=== PATIENT | male | born 1935 | race Caucasian/White ===

== ENCOUNTER 2020-03-21 07:45 | Emergency (ER) | payer MEDICARE, SELFPAY ==
[2020-03-21 07:59] VITALS: BP 129/45; PULSE 71; RESP 16; TEMP 36.5; O2SAT 100; BMI 19.1
--- NOTE | 2020-03-21 08:02 | ED.MALEGU ---
HPI - Male Genitourinary General Chief complaint: Urogenital-Male Stated complaint: urinary issue Time Seen by Provider: 03/21/20 08:00 Source: patient Mode of arrival: ambulatory Limitations: no limitations History of Present Illness HPI Narrative: recently seen here for UTI and mild retention on 03/16 did well with antibiotics since stopping yesterday he notes he started having burning with urination, given prior cultures sent out on levofloxacin, no associated symptoms, of note his culture grew out enterococcus S to ampicillin and macrobid Complaint: dysuria Onset (ago): day(s) (1) Duration: intermittent Severity: mild Quality: burning Relieving factors: none Exacerbating factors: urination Associated symptoms: Reports denies other symptoms Related Data Previous Rx's Medication Instructions Recorded amoxicillin 500 mg PO BID 10 Days #20 cap 03/21/20 Allergies Allergy/AdvReac Type Severity Reaction Status Date / Time No Known Allergies Allergy Unknown NONE Unverified 03/05/20 15:48 Review of Systems Review of Systems: Constitutional : No Weight loss, No Fever, No Chills ENT/Mouth : No sore throat, No Rhinorrhea Eyes: No Swelling, No Redness Cardiovascular : No Chest Pain, No SOB, NoEdema Respiratory : No Cough, No Sputum, No Wheezing Gastrointestinal : no Nausea, no Vomiting, no abdominal pain Genitourinary : + Dysuria, +Urinary Frequency, Musculoskeletal : No joint pain, No Myalgias, No Joint Swelling Skin : No Skin Lesions, No rash Neuro : No Weakness, No Numbness, No Dizziness, No Headache Psych : No Anxiety/Panic, No Depression Heme/Lymph: No Bruising, No Lymphadenopathy Endocrine : No Polyuria, No Polydipsia All other systems reviewed and are negative. [facility] Past Medical History Medical History (Updated 03/21/20 @ 10:22 by Chanel Bess DO) Atrial fibrillation (Unknown) BPH (benign prostatic hyperplasia) (Unknown) CHF (congestive heart failure) (Unknown) COPD (chronic obstructive pulmonary disease) (Unknown) Diabetes (Unknown) Esophageal cancer (Unknown) HTN (hypertension) (Unknown) UTI (urinary tract infection) (Unknown) Surgical History AICD (automatic cardioverter/defibrillator) present (Unknown) Family History Family History (Updated 10/03/20 @ 09:51 by MIGNON Deleon) Father No problems noted. Mother No problems noted. Social History Social History (Updated 03/21/20 @ 08:02 by Chanel Bess DO) Alcohol intake: never Smoking Status: Former smoker Smoked in Last 30 Days: No Use of substances other than those prescribed or required for medical reasons: No Advance Directives: No Advance Directives Information Provided: No Physical Exam Vital Signs and I&O and Narrative: Vital Signs and I&O: Vital Signs Temp 97.7 F 03/21/20 08:28 Pulse 71 03/21/20 08:28 Resp 16 03/21/20 08:28 BP 129/45 L 03/21/20 07:59 Pulse Ox 100 03/21/20 08:28 Intake & Output 03/20/20 03/21/20 03/21/20 18:59 06:59 18:59 Weight 63.796 kg Body Mass Index 19.1 Appearance: Alert. Oriented X3. No acute distress. Eyes: Pupils equal, round and reactive to light. ENT: Pharynx normal. Neck: Normal inspection. Neck supple. CVS: irregular heart rate and rhythm. Pulses normal. Respiratory: No respiratory distress. Breath sounds normal. Abdomen: Soft and mild suprapubic ttp Skin: Skin warm and dry. Normal skin color. Normal skin turgor. Extremities: No lower extremity edema. No lower extremity edema. Neuro: Oriented X 3. No motor deficit. No sensory deficit. Course Reevaluation(s) Reevaluation #1: labs at baseline though INR low 1.2, will obtain cultures/lactic acid and start on zosyn given prior cultures Reevaluation #2: not toxic, stable for DC, has no signs of sepsis, feels safe to DC MDM - Male Genitourinary MDM Narrative Medical decision making narrative: recent UTI Rx levofloxacin which his culture grew enterococcus - R to quinolones, S to ampicillin and macrobid, he has no signs of sepsis, no CVA ttp, no vomiting, will obtain repeat UA, labs, bladder scan likely dose ampicillin and DC home on amoxicillin Lab Data Result diagrams: 03/21/20 08:35 03/21/20 08:35 Labs: Lab Results 03/21/20 03/21/20 03/21/20 Range/Units 08:35 08:35 08:35 WBC 2.7 L (4.8-10.8) X10*3/uL RBC 2.99 L (4.60-5.80) X10*6/uL Hgb 9.9 L (14.0-18.0) g/dl Hct 31.4 L (42-52) % MCV 105.0 H (80-98) fL MCH 33.1 H (27.0-33.0) pg MCHC 31.5 (31.0-36.0) g/dl RDW 13.3 (11.0-16.0) % Plt Count 102 L (160-400) X10*3/uL MPV 9.7 (9.4-12.4) fL Immature Gran % (Auto) 0.4 (0.0-0.4) % Neut % (Auto) 73.8 H (45-73) % Lymph % (Auto) 12.7 L (20-40) % [place] % (Auto) 9.4 (2-11) % Eos % (Auto) 2.6 (0-4) % Baso % (Auto) 1.1 (0-2) % Neut # (Auto) 2.0 (2.0-8.3) X10*3/uL Lymph # (Auto) 0.3 L (1.2-4.9) X10*3/uL [place] # (Auto) 0.3 (0.1-1.2) X10*3/uL Eos # (Auto) 0.1 (0.0-0.4) X10*3/uL Baso # (Auto) 0.0 (0.0-0.2) X10*3/uL Abs Immat Gran (auto) 0.01 (0.00-0.03) X10*3/uL Absolute Nucleated RBC 0.000 (0.0-0.012) X10*3/uL Nucleated RBC % (auto) 0.0 (0.0-0.2) /100WBC Smear Tech's Comments VERIFIED PT 14.0 H (10.8-13.0) SEC INR 1.2 H (0.9-1.1) APTT 35.9 (24.1-38.0) SEC Sodium (135-145) mmol/L Potassium (3.3-5.1) mmol/l Chloride (96-108) mmol/L Carbon Dioxide (22-29) mmol/L Anion Gap (12-20) BUN (9-16) mg/dL Creatinine (0.5-1.4) mg/dL Estim Creat Clear Calc Estimated GFR Random Glucose (60-115) mg/dL Calcium (8.4-10.2) mg/dL Magnesium (1.6-2.6) mg/dL Total Bilirubin (0.0-1.0) mg/dL Direct Bilirubin (0.0-0.5) mg/dL AST (5-37) U/L ALT (0-40) U/L Alkaline Phosphatase (39-117) U/L Total Protein (6.5-8.0) g/dL Albumin (3.5-5.0) g/dL Urine Color YELLOW Urine Appearance CLOUDY Urine pH 6.0 (5.0-8.0) Ur Specific [place] 1.025 (1.005-1.025) Urine Protein 2+ H (NEG-TRACE) MG/DL Urine Glucose (UA) NEG (NEG) MG/DL Urine Ketones 5 (NEG) MG/DL Urine Blood 2+ H (NEG) Urine Nitrite NEG (NEG) Ur Leukocyte Esterase 3+ H (NEG) Urine RBC 5-9 H (0) /HPF Urine WBC TNTC H (0-4) /HPF Ur Squamous Epith Cells TRACE /LPF Ur Renal Epithelial Cell TRACE /LPF Urine Bacteria NONE /LPF Urine Mucus 1+ /LPF 03/21/20 Range/Units 08:35 WBC (4.8-10.8) X10*3/uL RBC (4.60-5.80) X10*6/uL Hgb (14.0-18.0) g/dl Hct (42-52) % MCV (80-98) fL MCH (27.0-33.0) pg MCHC (31.0-36.0) g/dl RDW (11.0-16.0) % Plt Count (160-400) X10*3/uL MPV (9.4-12.4) fL Immature Gran % (Auto) (0.0-0.4) % Neut % (Auto) (45-73) % Lymph % (Auto) (20-40) % [place] % (Auto) (2-11) % Eos % (Auto) (0-4) % Baso % (Auto) (0-2) % Neut # (Auto) (2.0-8.3) X10*3/uL Lymph # (Auto) (1.2-4.9) X10*3/uL [place] # (Auto) (0.1-1.2) X10*3/uL Eos # (Auto) (0.0-0.4) X10*3/uL Baso # (Auto) (0.0-0.2) X10*3/uL Abs Immat Gran (auto) (0.00-0.03) X10*3/uL Absolute Nucleated RBC (0.0-0.012) X10*3/uL Nucleated RBC % (auto) (0.0-0.2) /100WBC Smear Tech's Comments PT (10.8-13.0) SEC INR (0.9-1.1) APTT (24.1-38.0) SEC Sodium 141 (135-145) mmol/L Potassium 3.6 (3.3-5.1) mmol/l Chloride 109 H (96-108) mmol/L Carbon Dioxide 26 (22-29) mmol/L Anion Gap 10 L (12-20) BUN 25 H (9-16) mg/dL Creatinine 1.44 H (0.5-1.4) mg/dL Estim Creat Clear Calc 35.0 Estimated GFR 47 Random Glucose 121 H (60-115) mg/dL Calcium 8.4 (8.4-10.2) mg/dL Magnesium 2.0 (1.6-2.6) mg/dL Total Bilirubin 0.9 (0.0-1.0) mg/dL Direct Bilirubin 0.5 (0.0-0.5) mg/dL AST 13 (5-37) U/L ALT 11 (0-40) U/L Alkaline Phosphatase 89 (39-117) U/L Total Protein 5.5 L (6.5-8.0) g/dL Albumin 3.6 (3.5-5.0) g/dL Urine Color Urine Appearance Urine pH (5.0-8.0) Ur Specific [place] (1.005-1.025) Urine Protein (NEG-TRACE) MG/DL Urine Glucose (UA) (NEG) MG/DL Urine Ketones (NEG) MG/DL Urine Blood (NEG) Urine Nitrite (NEG) Ur Leukocyte Esterase (NEG) Urine RBC (0) /HPF Urine WBC (0-4) /HPF Ur Squamous Epith Cells /LPF Ur Renal Epithelial Cell /LPF Urine Bacteria /LPF Urine Mucus /LPF Discharge Plan Discharge Clinical Impression: Urinary tract infection Patient Disposition: Home, Self-Care Instructions: Urinary Tract Infection in Men (ED) Prescriptions: New amoxicillin 500 mg capsule 500 mg PO BID 10 Days Qty: 20 RF: 0 Referrals: Sam Ruffin MD [Primary Care Provider] - 2 days (follow up Monday)
--- NOTE | 2020-03-21 08:13 | PC.NURSE ---
PT HERE FOR CONTINUED PAIN IN LOW ABD, HERE MONDAY AND DX AND DC W ABX FOR UTI. PT FINISHED SCRIPT, BUT STILL FEELING PAIN. PLAN FOR BLADDER SCAN, REPEAT UA, AND BASIC LABS. PT A&OX4, SPEAKING IN FULL CLEAR SENTENCES, RR EVEN/UNLABORED, SKIN WPD.
[2020-03-21 08:28] VITALS: PULSE 71; RESP 16; TEMP 36.5; O2SAT 100
[2020-03-21 08:46] LABS: Basophils Percent Auto 1.1 % (0-2); Eosinophils Absolute Auto 0.1 X10*3/uL (0.0-0.4); Eosinophils Percent Auto 2.6 % (0-4); Hematocrit 31.4 % (42-52); Hemoglobin 9.9 g/dl (14.0-18.0); Imm Gran Abs Auto 0.01 X10*3/uL (0.00-0.03); Imm Gran Pct Auto 0.4 % (0.0-0.4); Lymphocytes Absolute Auto 0.3 X10*3/uL (1.2-4.9); Lymphocytes Percent Auto 12.7 % (20-40); MANUAL DIFF FLAG SCAN; Mean Corpuscular HGB Conc 31.5 g/dl (31.0-36.0); Mean Corpuscular Hemoglobin 33.1 pg (27.0-33.0); Mean Platelet Volume 9.7 fL (9.4-12.4); Monocytes Absolute Auto 0.3 X10*3/uL (0.1-1.2); Monocytes Percent Auto 9.4 % (2-11); Neutrophils Percent Auto 73.8 % (45-73); Red Blood Count 2.99 X10*6/uL (4.60-5.80); Red Cell Distribution Width 13.3 % (11.0-16.0); SCAN SMEAR FLAG 1; White Blood Count 2.7 X10*3/uL (4.8-10.8)
[2020-03-21 08:50] LABS: Glucose Urine UA NEG (NEG); Leukocyte Esterase Urine 3+ (NEG); Nitrite Urine NEG (NEG); Specific Gravity - Urine 1.025 (1.005-1.025); Urine Blood 2+ (NEG); Urine Ketones 5 MG/DL (NEG); Urine Protein 2+ MG/DL (NEG-TRACE)
[2020-03-21 08:51] LABS: Appearance Urine CLOUDY; Color Urine YELLOW
[2020-03-21 08:52] LABS: INTERNATIONAL NORM RATIO 1.2 (0.9-1.1)
[2020-03-21 08:55] LABS: Partial Thromboplastin Time 35.9 SEC (24.1-38.0)
[2020-03-21 09:01] LABS: Mucus Urine 1+ /LPF; Renal Epithelial Cells Urine TRACE /LPF; Squamous Epithelial Cell Urine TRACE /LPF; WBC Urine TNTC /HPF (0-4)
[2020-03-21 09:10] LABS: Platelet Count 102 X10*3/uL (160-400); SLIDE REVIEW VERIFIED
[2020-03-21 09:25] LABS: Alanine Aminotransferase 11 U/L (0-40); Albumin Level 3.6 g/dL (3.5-5.0); Alkaline Phosphatase 89 U/L (39-117); Anion Gap 10 (12-20); Aspartate Amino Transferase 13 U/L (5-37); Bilirubin Direct 0.5 mg/dL (0.0-0.5); Bilirubin Total 0.9 mg/dL (0.0-1.0); Blood Urea Nitrogen 25 mg/dL (9-16); Calcium 8.4 mg/dL (8.4-10.2); Carbon Dioxide 26 mmol/L (22-29); Chloride 109 mmol/L (96-108); Estimated Glomerular Filt Rate 47; Glucose Random 121 mg/dL (60-115); Potassium 3.6 mmol/l (3.3-5.1); Sodium 141 mmol/L (135-145); Total Protein 5.5 g/dL (6.5-8.0)
[2020-03-21] MEDS: Piperacillin Sodium/Tazobactam 3.375 GM in 0.9 % Sodium Chloride 50 ML IV (10:14)
== END 2020-03-21 12:15 | disposition home or self-care (01) ==
PROVIDERS: Emergency Provider Emergency Medicine; PCP Internal Medicine
DX: N39.0 Urinary tract infection, site not specified (principal); E11.9 Type 2 diabetes mellitus without complications; I11.0 Hypertensive heart disease with heart failure; I50.9 Heart failure, unspecified; I48.91 Unspecified atrial fibrillation; Z95.5 Presence of coronary angioplasty implant and graft; Z87.440 Personal history of urinary (tract) infections
CPT/HCPCS: 36415; 51798; 80048; 80076; 81001; 83735; 85025; 85610; 85730; 87086; 87088; 87186; 96365; 99284; J2543

== ENCOUNTER → 2020-03-23 09:12 | Outpatient (BNVA) | payer MEDICARE, SELFPAY | PROVIDERS: PCP Internal Medicine; Visit Provider Urology | DX: R30.0 Dysuria (principal); N40.1 Benign prostatic hyperplasia with lower urinary tract symptoms; N13.8 Other obstructive and reflux uropathy; R39.15 Urgency of urination | CPT/HCPCS: 81003; 99214 ==

== ENCOUNTER 2020-04-01 14:08 | Inpatient (IN) | payer MEDICARE, SELFPAY ==
[2020-04-01 16:38] VITALS: BP 109/30; PULSE 70; RESP 18; TEMP 37.1; O2SAT 98; BMI 19.0
--- NOTE | 2020-04-01 16:42 | XR_ITS ---
EXAMINATION: XR CHEST CLINICAL INFORMATION: Fluid overload COMPARISON: Chest x-ray 02/12/2020 TECHNIQUE: Frontal portable view of the chest was obtained. 4:50 PM FINDINGS: Pacemaker leads present in the right ventricle and coronary sinus. Heart size is normal. Cardiac and mediastinal contours are normal. There are calcifications of aorta. No pulmonary vascular congestion. The lungs are clear. No pleural effusion or pneumothorax. IMPRESSION: No acute abnormality of the chest.
--- NOTE | 2020-04-01 16:51 | ECG_ITS ---
Test Reason : ABNORMAL LABS Blood Pressure : / mmHG Vent. Rate : 070 BPM Atrial Rate : 267 BPM P-R Int : 000 ms QRS Dur : 120 ms QT Int : 404 ms P-R-T Axes : 000 188 030 degrees QTc Int : 436 ms Electronic ventricular pacemaker Low voltage QRS Abnormal ECG When compared with ECG of 12-FEB-2020 10:24, Premature ventricular complexes is no longer Present Referred By: Joe Cassidy Electronically Signed By:LURDSE NAQVI MD
--- NOTE | 2020-04-01 17:10 | ED.RECABL ---
HPI - Recheck/Abnormal Lab/Rx General Chief Complaint: Recheck/Abnormal Lab/Rx Stated Complaint: kidney problems Time Seen by Provider: 04/01/20 16:37 Source: patient Mode of arrival: ambulatory Limitations: no limitations History of Present Illness HPI narrative: patient was sent by his primary care doctor to the ER for worsening of creatinine level patient had a COVID infection earlier his usual creatinine is 1.2-1.4 in February this year and today patient had labs done which which showed creatinine of 5.1 also digoxin level was elevated to 2.6 patient is feeling slightly weak denied any shortness of breath has decreased urine output with history of benign prostate hypertrophy patient does have a history of stage III CKD sick sinus syndrome diabetes mellitus congestive heart failure atrial fibrillation B12 deficiency COVID infection in 01/05 COPD bronchiectasis pulmonary fibrosis dilated cardiomyopathy history of esophageal cancer states surface post partial esophagectomy osteoarthritis gout and has a pacemaker Related Data Home Medications Medication Instructions Recorded Confirmed cyanocobalamin (vitamin B-12) 1,000 mcg IM QMONTH 04/01/20 04/01/20 digoxin 125 mcg PO DAILY 04/01/20 04/01/20 ipratropium-albuterol [DuoNeb] 3 ml INHALATION QID PRN 04/01/20 04/01/20 metoprolol succinate 300 mg PO DAILY 04/01/20 04/01/20 omeprazole 20 mg PO BID 04/01/20 04/01/20 oxybutynin chloride 1 tab PO DAILY 04/01/20 04/01/20 sacubitril-valsartan [Entresto] 1 tab PO BID 04/01/20 04/01/20 tamsulosin 0.4 mg PO DAILY 04/01/20 04/01/20 umeclidinium-vilanterol [Anoro 1 puff PO DAILY 04/01/20 04/01/20 Ellipta] warfarin [Jantoven] 5 mg PO MOTUTHFRSA 04/01/20 04/01/20 warfarin [Jantoven] 7.5 mg PO SUWE 04/01/20 04/01/20 Allergies Allergy/AdvReac Type Severity Reaction Status Date / Time No Known Allergies Allergy Unknown NONE Unverified 03/05/20 15:48 Review of Systems Review of Systems: REVIEW OF SYSTEMS: Pertinent positives and negatives are stated above in the history. GEN: no fevers, chills, fatigue HEENT: no nasal congestion, sore throat, ear pain NEURO: no headache, dizziness, focal weakness PULM: no cough, shortness of breath CV: no chest pain, palpitations, LE edema ABD: no abdominal pain, nausea, vomiting, diarrhea : no dysuria, urgency, frequency SKIN: no rash ROS otherwise negative x 10 [facility] Past Medical History Medical History (Updated 04/01/20 @ 21:01 by Joe Cassidy MD) Atrial fibrillation (Unknown) BPH (benign prostatic hyperplasia) (Unknown) CHF (congestive heart failure) (Unknown) COPD (chronic obstructive pulmonary disease) (Unknown) Diabetes (Unknown) Esophageal cancer (Unknown) HTN (hypertension) (Unknown) UTI (urinary tract infection) (Unknown) Surgical History (Updated 04/01/20 @ 17:25 by Joe Cassidy MD) AICD (automatic cardioverter/defibrillator) present (Unknown) History of esophagectomy Family History Family History Father No problems noted. Mother No problems noted. Social History Social History Alcohol intake: never Smoking Status: Former smoker Advance Directives: No Advance Directives Information Provided: Yes Physical Exam Vital Signs: Vital Signs: Vital Signs Temp Pulse Resp BP Pulse Ox 04/01/20 20:56 98.7 F 71 16 124/70 97 04/01/20 18:43 70 120/34 L 95 04/01/20 16:38 98.8 F 70 18 109/30 L 98 Body Mass Index 19.0 Appearance: Alert. Oriented X3. No acute distress. Eyes: Pupils equal, round and reactive to light. ENT: Pharynx normal. Neck: Normal inspection. Neck supple. CVS: Normal heart rate and rhythm. Pulses normal. Respiratory: No respiratory distress. Breath sounds normal. Abdomen: Soft and nontender. suprapubic fullness present Skin: Skin warm and dry. Normal skin color. Normal skin turgor. Extremities: No lower extremity edema. Good range of movement Neuro: Oriented X 3. No motor deficit. No sensory deficit. Course Course Course Narrative: patient with obstructive uropathy secondary to enlarged prostate Navarro catheter was placed drain 1800 cc of urine. Will admit patient for further evaluation by urologist monitor her creatinine. 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 Patient has elevated lactic acid secondary to renal failure note from sepsis MDM - Recheck/Abnormal Lab/Rx Lab Data Result diagrams: 04/01/20 17:13 04/01/20 17:13 Labs: Lab Results 04/01/20 04/01/20 04/01/20 Range/Units 17:13 17:13 17:13 WBC 9.3 (4.8-10.8) X10*3/uL RBC 3.17 L (4.60-5.80) X10*6/uL Hgb 10.4 L (14.0-18.0) g/dl Hct 33.0 L (42-52) % MCV 104.1 H (80-98) fL MCH 32.8 (27.0-33.0) pg MCHC 31.5 (31.0-36.0) g/dl RDW 13.0 (11.0-16.0) % Plt Count 171 D (160-400) X10*3/uL MPV 9.7 (9.4-12.4) fL Immature Gran % (Auto) 0.4 (0.0-0.4) % Neut % (Auto) 89.2 H (45-73) % Lymph % (Auto) 3.5 L (20-40) % [place] % (Auto) 6.0 (2-11) % Eos % (Auto) 0.6 (0-4) % Baso % (Auto) 0.3 (0-2) % Lymph # (Auto) 0.3 L (1.2-4.9) X10*3/uL [place] # (Auto) 0.6 (0.1-1.2) X10*3/uL Eos # (Auto) 0.1 (0.0-0.4) X10*3/uL Baso # (Auto) 0.0 (0.0-0.2) X10*3/uL Abs Immat Gran (auto) 0.04 H (0.00-0.03) X10*3/uL Absolute Neuts (auto) 8.3 (2.0-8.3) X10*3/uL Absolute Nucleated RBC 0.000 (0.0-0.012) X10*3/uL Nucleated RBC % (auto) 0.0 (0.0-0.2) /100WBC Smear Tech's Comments VERIFIED PT 43.7 H D (10.8-13.0) SEC INR 3.6 H (0.9-1.1) APTT 52.4 H D (24.1-38.0) SEC Sodium (135-145) mmol/L Potassium (3.3-5.1) mmol/l Chloride (96-108) mmol/L Carbon Dioxide (22-29) mmol/L Anion Gap (12-20) BUN (9-16) mg/dL Creatinine (0.5-1.4) mg/dL Estim Creat Clear Calc Estimated GFR Random Glucose (60-115) mg/dL Lactic Acid (0.5-2.0) mmol/L Calcium (8.4-10.2) mg/dL Total Bilirubin (0.0-1.0) mg/dL Direct Bilirubin (0.0-0.5) mg/dL AST (5-37) U/L ALT (0-40) U/L Alkaline Phosphatase (39-117) U/L Total Protein (6.5-8.0) g/dL Albumin (3.5-5.0) g/dL Urine Color Urine Appearance Urine pH (5.0-8.0) Ur Specific [place] (1.005-1.025) Urine Protein (NEG-TRACE) MG/DL Urine Glucose (UA) (NEG) MG/DL Urine Ketones (NEG) MG/DL Urine Blood (NEG) Urine Nitrite (NEG) Ur Leukocyte Esterase (NEG) Urine RBC (0) /HPF Urine WBC (0-4) /HPF Ur Squamous Epith Cells /LPF Urine Bacteria /LPF Digoxin 1.7 (0.8-2.0) ng/mL 04/01/20 04/01/20 04/01/20 Range/Units 17:13 17:13 19:54 WBC (4.8-10.8) X10*3/uL RBC (4.60-5.80) X10*6/uL Hgb (14.0-18.0) g/dl Hct (42-52) % MCV (80-98) fL MCH (27.0-33.0) pg MCHC (31.0-36.0) g/dl RDW (11.0-16.0) % Plt Count (160-400) X10*3/uL MPV (9.4-12.4) fL Immature Gran % (Auto) (0.0-0.4) % Neut % (Auto) (45-73) % Lymph % (Auto) (20-40) % [place] % (Auto) (2-11) % Eos % (Auto) (0-4) % Baso % (Auto) (0-2) % Lymph # (Auto) (1.2-4.9) X10*3/uL [place] # (Auto) (0.1-1.2) X10*3/uL Eos # (Auto) (0.0-0.4) X10*3/uL Baso # (Auto) (0.0-0.2) X10*3/uL Abs Immat Gran (auto) (0.00-0.03) X10*3/uL Absolute Neuts (auto) (2.0-8.3) X10*3/uL Absolute Nucleated RBC (0.0-0.012) X10*3/uL Nucleated RBC % (auto) (0.0-0.2) /100WBC Smear Tech's Comments PT (10.8-13.0) SEC INR (0.9-1.1) APTT (24.1-38.0) SEC Sodium 140 (135-145) mmol/L Potassium 4.2 (3.3-5.1) mmol/l Chloride 107 (96-108) mmol/L Carbon Dioxide 23 (22-29) mmol/L Anion Gap 14 (12-20) BUN 77 H D (9-16) mg/dL Creatinine 4.73 H* (0.5-1.4) mg/dL Estim Creat Clear Calc 10.6 Estimated GFR 12 Random Glucose 124 H (60-115) mg/dL Lactic Acid 2.4 H* (0.5-2.0) mmol/L Calcium 7.7 L (8.4-10.2) mg/dL Total Bilirubin 0.7 (0.0-1.0) mg/dL Direct Bilirubin 0.4 (0.0-0.5) mg/dL AST 11 (5-37) U/L ALT 6 (0-40) U/L Alkaline Phosphatase 84 (39-117) U/L Total Protein 5.4 L (6.5-8.0) g/dL Albumin 3.2 L (3.5-5.0) g/dL Urine Color BROWN Urine Appearance TURBID Urine pH 5.5 (5.0-8.0) Ur Specific [place] 1.020 (1.005-1.025) Urine Protein 2+ H (NEG-TRACE) MG/DL Urine Glucose (UA) 100 H (NEG) MG/DL Urine Ketones NEG (NEG) MG/DL Urine Blood 1+ H (NEG) Urine Nitrite POS H (NEG) Ur Leukocyte Esterase 2+ H (NEG) Urine RBC 10-14 H (0) /HPF Urine WBC 76-150 H (0-4) /HPF Ur Squamous Epith Cells 1+ /LPF Urine Bacteria 2+ /LPF Digoxin (0.8-2.0) ng/mL Discharge Plan Discharge Clinical Impression: BPH with obstruction/lower urinary tract symptoms, Bacterial UTI Acute renal failure (ARF) Qualifiers: Acute renal failure type: unspecified Qualified Code(s): N17.9 - Acute kidney failure, unspecified Patient Disposition: Admitted As Inpatient Interventions: Admission Worksheet (ED) Last Done: 04/02/20 00:25 Discharge Date/Time: 04/02/20 00:25
--- NOTE | 2020-04-01 17:14 | PC.NURSE ---
SEEN BY DR MAGDALENO. CXR DONE. LABS DONE. EKG DONE
--- NOTE | 2020-04-01 17:21 | CT_ITS ---
EXAMINATION: CT ABDOMEN AND PELVIS WITHOUT CONTRAST CLINICAL INFORMATION: 85-year-old male with obstructive uropathy. COMPARISON: CT abdomen pelvis 08/15/2019 TECHNIQUE: Multidetector volumetric imaging was performed from the superior aspect of the liver through the pubic symphysis. Sagittal and coronal reformatted images were obtained on the technologist's workstation. This CT examination was performed using dose optimization techniques as appropriate, variously including the following: *Automated exposure control *Adjustment of mA and/or kV according to patient size (this includes techniques or standardized protocols for targeted exams where dose is matched to indication/reason for exam; i.e. extremities or head) *Use of iterative reconstruction technique DLP: 398 mGy-cm FINDINGS: Visualized lung bases again demonstrate a tiny left-sided pleural effusion overlying atelectasis. There is been interval resolution of previously visualized tiny right-sided pleural effusion. The liver demonstrates normal size, contour and attenuation. Stable hepatic hypodensities, some of which demonstrate cystic characteristics and others are too small to accurately characterize. The gallbladder is normal in appearance. The pancreas, spleen and adrenal glands are unremarkable. Interval development of moderate left and severe right-sided hydroureteronephrosis. No obstructing calculi are present. The bladder is overly distended with suggestion of a small left-sided bladder diverticulum. The prostate gland is enlarged measuring 6.5 cm in transverse dimension. There are coarse calcifications centrally within the prostate gland. Small hiatal hernia. The stomach is decompressed. Normal caliber loops of small and large bowel. Moderate colonic diverticulosis without CT evidence to suggest active diverticulitis. Normal appendix. Mild soft tissue stranding within the perirectal fat suggesting possible colitis. Diffuse osteopenia with moderate degenerative changes of the spine. Severe atherosclerotic disease of a nonaneurysmal abdominal aorta. IMPRESSION: Interval development of moderate left and severe right-sided hydroureteronephrosis in this setting of an overly distended bladder and enlarged prostate gland. No obstructing calculi noted.
[2020-04-01 17:34] LABS: Glucose Urine UA 100 MG/DL (NEG); Leukocyte Esterase Urine 2+ (NEG); Nitrite Urine POS (NEG); PH 5.5 (5.0-8.0); Urine Blood 1+ (NEG); Urine Ketones NEG (NEG); Urine Protein 2+ MG/DL (NEG-TRACE)
[2020-04-01 17:35] LABS: Appearance Urine TURBID; Color Urine BROWN
[2020-04-01 17:39] LABS: Bacteria Urine 2+ /LPF; Squamous Epithelial Cell Urine 1+ /LPF
[2020-04-01 18:11] LABS: Basophils Percent Auto 0.3 % (0-2); Eosinophils Absolute Auto 0.1 X10*3/uL (0.0-0.4); Eosinophils Percent Auto 0.6 % (0-4); Hemoglobin 10.4 g/dl (14.0-18.0); Imm Gran Abs Auto 0.04 X10*3/uL (0.00-0.03); Imm Gran Pct Auto 0.4 % (0.0-0.4); Lymphocytes Absolute Auto 0.3 X10*3/uL (1.2-4.9); Lymphocytes Percent Auto 3.5 % (20-40); MANUAL DIFF FLAG SCAN; Mean Corpuscular HGB Conc 31.5 g/dl (31.0-36.0); Mean Corpuscular Hemoglobin 32.8 pg (27.0-33.0); Mean Corpuscular Volume 104.1 fL (80-98); Mean Platelet Volume 9.7 fL (9.4-12.4); Monocytes Absolute Auto 0.6 X10*3/uL (0.1-1.2); Neutrophils Absolute Auto 8.3 X10*3/uL (2.0-8.3); Neutrophils Percent Auto 89.2 % (45-73); Platelet Count 171 X10*3/uL (160-400); Red Blood Count 3.17 X10*6/uL (4.60-5.80); SCAN SMEAR FLAG 1; White Blood Count 9.3 X10*3/uL (4.8-10.8)
[2020-04-01 18:12] LABS: INTERNATIONAL NORM RATIO 3.6 (0.9-1.1); Prothrombin Time 43.7 SEC (10.8-13.0)
[2020-04-01 18:15] LABS: Partial Thromboplastin Time 52.4 SEC (24.1-38.0)
[2020-04-01 18:34] LABS: SLIDE REVIEW VERIFIED
[2020-04-01] MEDS: 0.9 % Sodium Chloride 1,000 ML 999 ML IVCONT (18:42)
[2020-04-01 18:43] VITALS: BP 120/34; PULSE 70; O2SAT 95
[2020-04-01 18:53] LABS: Alanine Aminotransferase 6 U/L (0-40); Albumin Level 3.2 g/dL (3.5-5.0); Alkaline Phosphatase 84 U/L (39-117); Anion Gap 14 (12-20); Aspartate Amino Transferase 11 U/L (5-37); Bilirubin Direct 0.4 mg/dL (0.0-0.5); Bilirubin Total 0.7 mg/dL (0.0-1.0); Blood Urea Nitrogen 77 mg/dL (9-16); Calcium 7.7 mg/dL (8.4-10.2); Carbon Dioxide 23 mmol/L (22-29); Chloride 107 mmol/L (96-108); Creatinine Clr Calc Pharmacy 10.6; Estimated Glomerular Filt Rate 12; Glucose Random 124 mg/dL (60-115); Potassium 4.2 mmol/l (3.3-5.1); Sodium 140 mmol/L (135-145); Total Protein 5.4 g/dL (6.5-8.0)
[2020-04-01 19:29] LABS: Digoxin 1.7 ng/mL (0.8-2.0)
[2020-04-01 20:33] LABS: Lactic Acid 2.4 mmol/L (0.5-2.0)
--- NOTE | 2020-04-01 20:48 | PC.NURSE ---
bernabe inserted by PCT, almost 1900 ml dark colored urine draining into bernabe bag.
[2020-04-01 20:56] VITALS: BP 124/70; PULSE 71; RESP 16; TEMP 37.1; O2SAT 97
--- NOTE | 2020-04-01 21:15 | PC.NURSE ---
unable to amend blood cultures, cultures will be drawn and labeled. will send to lab so antibiotic can be administered. super user for expanse working on issue now.
[2020-04-01] MEDS: Ampicillin Sodium 1 GM in 0.9 % Sodium Chloride 100 ML IV (21:24)
--- NOTE | 2020-04-01 21:24 | PC.NURSE ---
both sets of cultures complete.
--- NOTE | 2020-04-01 21:34 | PC.NURSE ---
Documentation by the RN that Blood Cultures were collected at 1847 and was recorded at 2118 is incorrect. This RN was attempting to assist primary ED RN with adding source (venous) to the collection order and when saving this change the order was completed. Attempt to edit this documentation was unsuccessful. Raquel Vincent, [facility] and [facility] lab was notified. Physical note to be sent with blood cultures and lab will change date/time collected to be correct in the computer.
[2020-04-01 21:59] LABS: Reflex Lactate? Lactic Acid Added
--- NOTE | 2020-04-01 22:50 | PC.NURSE ---
awaiting call back from floor for report. pt declined food, did accept can of soda.
--- NOTE | 2020-04-01 23:51 | PC.NURSE ---
pt report given to rn on floor at 23:15. pt now being transported to floor.
[2020-04-02] VITALS (8 sets, daily range): BP systolic 109–135; BP diastolic 49–62; PULSE 69–71; RESP 16–20; TEMP 35.8–36.3; O2SAT 96–100; BMI 18.4
[2020-04-02] MEDS: 0.9 % Sodium Chloride Flush 3 ML SYRINGE IVFLUSH ×2 (00:21→09:18)
[2020-04-02 00:53] LABS: ~Lactic Acid-LAB USE ONLY 0.9 mmol/L (0.5-2.0)
--- NOTE | 2020-04-02 00:54 | PM.IMHP ---
History of Present Illness Date of Service: 04/01/20 Chief Complaint: abnormal labs this is an 85-year-old male with past medical history of AFib, HTN cough history of esophageal cancer status post resection, CHF with reduced ejection fraction of 25%, GERD, celiac disease, BPH status post partial prostatectomy in December of this year, who presents to the hospital after routine labs showed abnormal numbers. Patient reports that he was called by his doctor to come to the hospital because his lab values were abnormal. He has been having significant difficulty with peeing. He reports that he has been having urinary retention and not able to empty his bladder. He had a UTI diagnosed on the 28 of March and was on antibiotics but reports that he has been having recurrent UTI and has been on antibotics for long time. but his dysuria and urgency remain. He has been feeling significantly weak with poor appetite for the past 2-3 weeks. He underwent partial prostatectomy on December. It appears that his lab showed elevated creatinine and BUN. In the ED a Navarro catheter was inserted an 1800 cc of urine was drained. Patient had obstructive uropathy. CT of the abdomen shows interval development of moderate left and severe right-sided hydroureteronephrosis in the setting of an overly distended bladder and enlarged prostate gland. patient reports that he has an appointment with his urologist for the to undergo another prostatectomy procedure. on arrival to the ED hemodynamically stable with no significant abnormal vitals lab significant for normal WBC, hemoglobin of 10.4 which is around his baseline for the past few months, MCV of 104, INR 3.6, BUN of 77 with a creatinine of 4.73, lactic acid of 2.4 which improved 0.9 after fluids, UA positive for proteins, blood, nitrates, leukocyte Estrace and WBC. PAST MEDICAL HISTORY: Atrial fibrillation. Hypertension. History of esophageal cancer, status post resection. chf with reduced EF (25%) GERD. Celiac disease. PAST SURGICAL HISTORY: 1. Left inguinal hernia repair. 2. Left shoulder surgery x2. 3. Throat surgery to repair vocal chord. 4. 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 5. AICD placement FAMILY HISTORY: Positive for throat cancer, most of his parents. SOCIAL HISTORY: Quit smoking more than 40 years ago. Drinks alcohol socially. Lives with his . Does not use any assistive devices for ambulation. Does not use any illicit drugs. Review of Systems Review of Systems: Yes all other systems are reviewed and are negative PENDING SALE TO [facility] Medical History Atrial fibrillation (Unknown) BPH (benign prostatic hyperplasia) (Unknown) CHF (congestive heart failure) (Unknown) COPD (chronic obstructive pulmonary disease) (Unknown) Diabetes (Unknown) Esophageal cancer (Unknown) HTN (hypertension) (Unknown) UTI (urinary tract infection) (Unknown) Family History Father No problems noted. Mother No problems noted. Surgical History AICD (automatic cardioverter/defibrillator) present (Unknown) History of esophagectomy Social History Alcohol intake: never Smoking Status: Former smoker Advance Directives: No Advance Directives Information Provided: Yes Meds Allergies Allergy/AdvReac Type Severity Reaction Status Date / Time No Known Allergies Allergy Unknown NONE Unverified 03/05/20 15:48 Home Medications Medication Instructions Recorded Confirmed Type cyanocobalamin (vitamin B-12) 1,000 mcg IM QMONTH 04/01/20 04/01/20 History digoxin 125 mcg PO DAILY 04/01/20 04/01/20 History ipratropium-albuterol [DuoNeb] 3 ml INHALATION QID PRN 04/01/20 04/01/20 History metoprolol succinate 300 mg PO DAILY 04/01/20 04/01/20 History omeprazole 20 mg PO BID 04/01/20 04/01/20 History oxybutynin chloride 1 tab PO DAILY 04/01/20 04/01/20 History sacubitril-valsartan [Entresto] 1 tab PO BID 04/01/20 04/01/20 History tamsulosin 0.4 mg PO DAILY 04/01/20 04/01/20 History umeclidinium-vilanterol [Anoro 1 puff PO DAILY 04/01/20 04/01/20 History Ellipta] warfarin [Jantoven] 5 mg PO MOTUTHFRSA 04/01/20 04/01/20 History warfarin [Jantoven] 7.5 mg PO SUWE 04/01/20 04/01/20 History Physical Exam Vital Signs and Narrative: Vital Signs: Last Vital Signs Temp 97.4 F 04/02/20 00:20 Pulse 70 04/02/20 00:20 Resp 18 04/02/20 00:20 BP 133/53 L 04/02/20 00:20 Pulse Ox 100 04/02/20 00:20 Body Mass Index 19.0 Const: Other: patient appears comfortable, not in acute distress or pain at this time General: cooperative and no acute distress Orientation/consciousness: patient oriented x3 Eyes: General: appearance normal, both eyes and all related structures Pupils: Equal, round and reactive pupils present Resp: Other: clear to auscultate Effort & Inspection: normal respiratory effort and able to speak in complete sentences Auscultation: clear to auscultation bilaterally Cardio: Rate: regular rate Rhythm: regular rhythm GI: Palpation (GI): Soft to palpation Auscultation: normal bowel sounds : Other: no CVA tenderness Skin: General skin exam: no rashes or lesions noted Neuro: General: patient oriented x3 Cranial nerves: Yes Equal, round and reactive pupils present Cognition (Neuro): normal cognition Extrem: General: Yes normal to inspection and Yes no pedal edema Results Labs Labs: Laboratory Tests 04/01/20 04/01/20 04/01/20 17:13 17:13 17:13 WBC 9.3 RBC 3.17 L Hgb 10.4 L Hct 33.0 L MCV 104.1 H MCH 32.8 MCHC 31.5 RDW 13.0 Plt Count 171 D MPV 9.7 Immature Gran % (Auto) 0.4 Neut % (Auto) 89.2 H Lymph % (Auto) 3.5 L Barnes % (Auto) 6.0 Eos % (Auto) 0.6 Baso % (Auto) 0.3 Lymph # (Auto) 0.3 L Barnes # (Auto) 0.6 Eos # (Auto) 0.1 Baso # (Auto) 0.0 Abs Immat Gran (auto) 0.04 H Absolute Neuts (auto) 8.3 Absolute Nucleated RBC 0.000 Nucleated RBC % (auto) 0.0 Smear Tech's Comments VERIFIED PT 43.7 H D INR 3.6 H APTT 52.4 H D Sodium Potassium Chloride Carbon Dioxide Anion Gap BUN Creatinine Estim Creat Clear Calc Estimated GFR Random Glucose Lactic Acid Lactic Acid Fup @ 2Hr Calcium Total Bilirubin Direct Bilirubin AST ALT Alkaline Phosphatase Total Protein Albumin Urine Color Urine Appearance Urine pH Ur Specific [place] Urine Protein Urine Glucose (UA) Urine Ketones Urine Blood Urine Nitrite Ur Leukocyte Esterase Urine RBC Urine WBC Ur Squamous Epith Cells Urine Bacteria Digoxin 1.7 04/01/20 04/01/20 04/01/20 17:13 17:13 19:54 WBC RBC Hgb Hct MCV MCH MCHC RDW Plt Count MPV Immature Gran % (Auto) Neut % (Auto) Lymph % (Auto) Barnes % (Auto) Eos % (Auto) Baso % (Auto) Lymph # (Auto) Barnes # (Auto) Eos # (Auto) Baso # (Auto) Abs Immat Gran (auto) Absolute Neuts (auto) Absolute Nucleated RBC Nucleated RBC % (auto) Smear Tech's Comments PT INR APTT Sodium 140 Potassium 4.2 Chloride 107 Carbon Dioxide 23 Anion Gap 14 BUN 77 H D Creatinine 4.73 H* Estim Creat Clear Calc 10.6 Estimated GFR 12 Random Glucose 124 H Lactic Acid 2.4 H* Lactic Acid Fup @ 2Hr Calcium 7.7 L Total Bilirubin 0.7 Direct Bilirubin 0.4 AST 11 ALT 6 Alkaline Phosphatase 84 Total Protein 5.4 L Albumin 3.2 L Urine Color BROWN Urine Appearance TURBID Urine pH 5.5 Ur Specific [place] 1.020 Urine Protein 2+ H Urine Glucose (UA) 100 H Urine Ketones NEG Urine Blood 1+ H Urine Nitrite POS H Ur Leukocyte Esterase 2+ H Urine RBC 10-14 H Urine WBC 76-150 H Ur Squamous Epith Cells 1+ Urine Bacteria 2+ Digoxin 04/02/20 00:21 WBC RBC Hgb Hct MCV MCH MCHC RDW Plt Count MPV Immature Gran % (Auto) Neut % (Auto) Lymph % (Auto) Barnes % (Auto) Eos % (Auto) Baso % (Auto) Lymph # (Auto) Barnes # (Auto) Eos # (Auto) Baso # (Auto) Abs Immat Gran (auto) Absolute Neuts (auto) Absolute Nucleated RBC Nucleated RBC % (auto) Smear Tech's Comments PT INR APTT Sodium Potassium Chloride Carbon Dioxide Anion Gap BUN Creatinine Estim Creat Clear Calc Estimated GFR Random Glucose Lactic Acid Lactic Acid Fup @ 2Hr 0.9 Calcium Total Bilirubin Direct Bilirubin AST ALT Alkaline Phosphatase Total Protein Albumin Urine Color Urine Appearance Urine pH Ur Specific [place] Urine Protein Urine Glucose (UA) Urine Ketones Urine Blood Urine Nitrite Ur Leukocyte Esterase Urine RBC Urine WBC Ur Squamous Epith Cells Urine Bacteria Digoxin Imaging CT scan - abdomen: Radiologist's impression: IMPRESSION: Interval development of moderate left and severe right-sided hydroureteronephrosis in this setting of an overly distended bladder and enlarged prostate gland. No obstructing calculi noted. Assessment and Plan (1) Acute renal failure (ARF): Qualifiers: Acute renal failure type: unspecified Qualified Code(s): N17.9 - Acute kidney failure, unspecified Status: Acute (2) Bacterial UTI: Status: Acute (3) Urgency of micturition: Status: Acute (4) BPH with obstruction/lower urinary tract symptoms: Status: Acute (5) Dysuria: Status: Acute (6) Obstructive uropathy: Status: Acute (7) Atrial fibrillation: Status: Inactive (8) COPD (chronic obstructive pulmonary disease): Status: Inactive (9) HTN (hypertension): Status: Inactive (10) Diabetes: Status: Inactive (11) CHF (congestive heart failure): Status: Inactive 85-year-old gentleman with a PMH as above who presents to the hospital with complaints although abnormal lab findings under ECT exam. Patient has also been complaining that he has been having weakness. Found to have UTI, TRIP. Patient will be admitted for further man agement # TRIP - most likely secondary to obstructive uropathy as well UTI - significant hydroureteronephrosis on CT - UA positive - history of BPH with prostatectomy recently done - baseline around 1 point 2-1.3, presented with a creatinine of 4.73 plan: -Insertion of Navarro catheter which was done in the ED - IV fluids - treatment of UTI with antibiotics -Follow BMP daily # obstructive uropathy - secondary to BPH - urology consulted - continue tamsulosin # UTI - urine culture from 03/21 demonstrated ESBL with sensitivity to ampicillin - will start patient on ampicillin - urine and blood cultures collected # AFib - rate controlled, on metoprolol - on warfarin with supratherapeutic INR - patient is also on digoxin: level of 1.7 plan - will hold tonight's warfarin, continue metoprolol, continue digoxin # CHF - no evidence of exacerbation - continue metoprolol, Entresto - monitor respiratory status given the fact the patient is receiving IV fluid # COPD - no exacerbating - continue breathing regimen DVT prophylaxis: warfarin date of service 04/01/2020
[2020-04-02 03:48] LABS: Folate 3.4 ng/mL (> or = 4.0); Vitamin B12 > 2000 pg/mL (200-900)
[2020-04-02 06:44] LABS: INTERNATIONAL NORM RATIO 3.8 (0.9-1.1); Prothrombin Time 46.1 SEC (10.8-13.0)
[2020-04-02 07:49] LABS: Glucose, Whole Blood 72 mg/dL (60-115)
[2020-04-02] MEDS: Omeprazole 20 MG CAPSULE.DR PO ×2 (09:20→21:18)
[2020-04-02] MEDS: Digoxin 0.125 MG TABLET PO (09:20)
[2020-04-02] MEDS: Sacubitril/Valsartan 24/26 1 TAB TABLET PO ×2 (09:20→21:18)
[2020-04-02] MEDS: Metoprolol Succinate ER 100 MG TAB.ER.24H 300 MG PO (09:20)
[2020-04-02] MEDS: Tamsulosin HCL 0.4 MG CAPSULE PO (09:21)
[2020-04-02 10:08] LABS: Basophils Percent Auto 0.4 % (0-2); Eosinophils Absolute Auto 0.1 X10*3/uL (0.0-0.4); Eosinophils Percent Auto 1.9 % (0-4); Hematocrit 31.1 % (42-52); Hemoglobin 9.8 g/dl (14.0-18.0); Imm Gran Abs Auto 0.03 X10*3/uL (0.00-0.03); Imm Gran Pct Auto 0.4 % (0.0-0.4); Lymphocytes Absolute Auto 0.4 X10*3/uL (1.2-4.9); Lymphocytes Percent Auto 5.5 % (20-40); MANUAL DIFF FLAG SCAN; Mean Corpuscular HGB Conc 31.5 g/dl (31.0-36.0); Mean Corpuscular Hemoglobin 32.9 pg (27.0-33.0); Mean Corpuscular Volume 104.4 fL (80-98); Mean Platelet Volume 9.7 fL (9.4-12.4); Monocytes Absolute Auto 0.5 X10*3/uL (0.1-1.2); Monocytes Percent Auto 7.1 % (2-11); Neutrophils Absolute Auto 5.7 X10*3/uL (2.0-8.3); Neutrophils Percent Auto 84.7 % (45-73); Platelet Count 153 X10*3/uL (160-400); Red Blood Count 2.98 X10*6/uL (4.60-5.80); Red Cell Distribution Width 12.9 % (11.0-16.0); SCAN SMEAR FLAG 1; White Blood Count 6.7 X10*3/uL (4.8-10.8)
--- NOTE | 2020-04-02 10:11 | HO.PM.IMPN ---
Subjective Subjective Date of Service: 04/02/20 Interval History: feeling relief Respiratory Respiratory: Reports no additional respiratory complaints Gastrointestinal Gastrointestinal: Reports no additional gastrointestinal complaints Physical Exam Vital Signs: Vital Signs: Vital Signs Temp Pulse Resp BP Pulse Ox 04/02/20 09:20 69 04/02/20 07:36 97.0 F 69 18 117/53 L 96 04/02/20 03:24 96.5 F L 70 16 124/57 L 98 04/02/20 00:20 97.4 F 70 18 133/53 L 100 04/01/20 20:56 98.7 F 71 16 124/70 97 04/01/20 18:43 70 120/34 L 95 04/01/20 16:38 98.8 F 70 18 109/30 L 98 Body Mass Index 18.4 General: AO X 3, no acute distress Resp: CTA bilateral CVS: S1,S2,RRR GI: soft, non tender, non distended Neuro: motor grossly intact Psych: appropriate affect Objective Data Current Medications Generic Name Dose Route Start Last Admin Trade Name Freq PRN Reason Stop Dose Admin Albuterol/Ipratropium 3 ml 04/02/20 00:02 Albuterol/Iprat 2.5/0.5mg 3 Ml Ampul.Neb INHALE QID PRN Shortness Of Breath Cyanocobalamin 1,000 mcg 04/02/20 00:02 Cyanocobalamin (Vitamin B-12) 1,000 Mcg/Ml Vial IM .QMONTH ANDRZE Digoxin 0.125 mg 04/02/20 09:00 04/02/20 09:20 Digoxin 0.125 Mg Tablet PO 0.125 mg DAILY ANDREZ Administration Docusate Sodium 100 mg 04/02/20 00:02 Docusate Sodium 100 Mg Capsule PO DAILY PRN Constipation Lactated Ringer's 1,000 mls @ 100 mls/hr 04/02/20 08:45 Lr IVCONT .Q10H ANDREZ Ampicillin Sodium 1 gm/ Sodium 50 mls @ 100 mls/hr 04/02/20 10:00 Chloride IV Q12H [facility] Insulin Human Lispro 0 unit 04/02/20 07:30 04/02/20 09:17 Insulin Lispro 100 Unit/Ml 3 Ml Vial SUBCUT Not Given QIDACHS [facility] Protocol Metoprolol Succinate 300 mg 04/02/20 09:00 04/02/20 09:20 Metoprolol Succinate Er 100 Mg Tab.Er.24h PO 300 mg DAILY ANDREZ Administration Protocol Omeprazole 20 mg 04/02/20 09:00 04/02/20 09:20 Omeprazole 20 Mg Capsule.Dr PO 20 mg BID ANDREZ Administration Ondansetron HCl 4 mg 04/02/20 00:02 Ondansetron Hcl 4 Mg/2 Ml Vial IVPUSH Q8H PRN Nausea and Vomiting Pharmacy Consult 1 each 04/01/20 19:55 Consult Rx Perform Med Rec MISCELLANE ONCE PRN Consult order Sacubitril/Valsartan 1 tab 04/02/20 09:00 04/02/20 09:20 Sacubitril/Valsartan 1 Tab Tablet PO 1 tab BID [facility] Administration Protocol Sodium Chloride 3 ml 04/02/20 00:02 04/02/20 09:18 0.9 % Sodium Chloride Flush 3 Ml Syringe IVFLUSH 3 ml QSHIFT [facility] Administration Tamsulosin HCl 0.4 mg 04/02/20 09:00 04/02/20 09:21 Tamsulosin Hcl 0.4 Mg Capsule PO 0.4 mg DAILY ANDREZ Administration Warfarin Sodium 7.5 mg 04/05/20 16:00 Warfarin Sodium 7.5 Mg Tablet PO [email or web address] [facility] Warfarin Sodium 5 mg 04/03/20 16:00 Warfarin Sodium 5 Mg Tablet PO [email or web address] [facility] Labs CBC & Chem 7: 04/01/20 17:13 04/01/20 17:13 Assessment and Plan (1) Acute renal failure (ARF): Status: Acute (2) Bacterial UTI: Status: Acute (3) Urgency of micturition: Status: Acute (4) BPH with obstruction/lower urinary tract symptoms: Status: Acute (5) Dysuria: Status: Acute (6) Obstructive uropathy: Status: Acute (7) Atrial fibrillation: Status: Inactive (8) COPD (chronic obstructive pulmonary disease): Status: Inactive (9) HTN (hypertension): Status: Inactive (10) Diabetes: Status: Inactive (11) CHF (congestive heart failure): Status: Inactive Assessment and Plan: 85M presented with urinary retention BPH with urinary retention complicated by obstructive uropathy with acute kidney injury and urinary tract infection status post full insertion and 1800 cc urine postvoid residual close monitoring of ins and outs IV fluids monitor BMP urology eval Flomax previous culture was VRE, continue ampicillin follow-up cultures AFib metoprolol, dig warfarin with supratherapeutic INR chronic systolic chf metoprolol, entresto DM insulin
[2020-04-02 10:16] LABS: SLIDE REVIEW VERIFIED
[2020-04-02 10:32] LABS: Anion Gap 14 (12-20); Blood Urea Nitrogen 67 mg/dL (9-16); Calcium 7.6 mg/dL (8.4-10.2); Carbon Dioxide 22 mmol/L (22-29); Chloride 110 mmol/L (96-108); Creatinine Clr Calc Pharmacy 12.8; Estimated Glomerular Filt Rate 15; Glucose Fasting 116 mg/dL (60-99); Potassium 4.6 mmol/l (3.3-5.1); Sodium 141 mmol/L (135-145)
[2020-04-02] MEDS: Lactated Ringers 1,000 ML 100 ML IVCONT ×2 (10:45→22:00)
[2020-04-02 11:10] LABS: Glucose, Whole Blood 99 mg/dL (60-115)
--- NOTE | 2020-04-02 12:38 | MHC.CM.PN ---
NURSE DANCING MASTER NOTE ELECTRONIC MEDICAL RECORD REVIEWED ALONG WITH CASE DISCUSSED WITH STAFF NURSE , MET WITH PATIENT AND EXPLAINED THE ROLE OF THE NURSE DANCING MASTER IN THE TRANSIRION FROM THE HOSPITAL TO HOME PATIENT WAS ALERT AND ORIENTATED X3 HE REPORTED HE LIVES WITH HIS AND DAUGHTER IN [place], HE IS INDEPENDENT IN ALL HIS ADLS and mobiity with out any device. 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 and has no vna nor dme services in the home, he feels he will not need any vna services at discharge , plans are for him to be seen by a urologist today patient reported to me that he is also followed by [facility] primary at [facility] noe story, also a bond manager [email or web address] to the [facility] as he is on warfaring for his a-fib discharge plan anticipate home with no services (patient has had a indwelling bernabe in the recent past at home) he does not fee that he will need a vna , pcp patient to call for post hospital appointment urology followmup per discharge insturctions transportation family medicare imm explained and left with patient with name card attached and how to reach case management
--- NOTE | 2020-04-02 13:38 | MHC.CLN ---
PT IS MODERATELY MALNOURISHED WILL START GLUCERNA BID TO INCREASE PO SEE ALSO NUTRITION ASSESSMENT
[2020-04-02 16:42] LABS: Glucose, Whole Blood 87 mg/dL (60-115)
[2020-04-02 20:32] LABS: Glucose, Whole Blood 108 mg/dL (60-115)
[2020-04-03 04:09] VITALS: BP 127/62; PULSE 70; RESP 18; TEMP 35.7; O2SAT 98
[2020-04-03 06:00] VITALS: BMI 18.9
[2020-04-03 06:51] LABS: INTERNATIONAL NORM RATIO 3.4 (0.9-1.1)
[2020-04-03 07:56] VITALS: BP 108/47; PULSE 69; RESP 19; TEMP 36.2; O2SAT 99
[2020-04-03 08:09] LABS: Glucose, Whole Blood 76 mg/dL (60-115)
[2020-04-03 08:33] LABS: Basophils Percent Auto 0.4 % (0-2); Eosinophils Absolute Auto 0.2 X10*3/uL (0.0-0.4); Eosinophils Percent Auto 4.3 % (0-4); Hematocrit 32.8 % (42-52); Hemoglobin 10.4 g/dl (14.0-18.0); Imm Gran Abs Auto 0.01 X10*3/uL (0.00-0.03); Imm Gran Pct Auto 0.2 % (0.0-0.4); Lymphocytes Absolute Auto 0.5 X10*3/uL (1.2-4.9); Lymphocytes Percent Auto 10.6 % (20-40); MANUAL DIFF FLAG SCAN; Mean Corpuscular HGB Conc 31.7 g/dl (31.0-36.0); Mean Corpuscular Hemoglobin 32.7 pg (27.0-33.0); Mean Corpuscular Volume 103.1 fL (80-98); Mean Platelet Volume 9.5 fL (9.4-12.4); Monocytes Absolute Auto 0.3 X10*3/uL (0.1-1.2); Monocytes Percent Auto 7.2 % (2-11); Neutrophils Absolute Auto 3.6 X10*3/uL (2.0-8.3); Neutrophils Percent Auto 77.3 % (45-73); Platelet Count 175 X10*3/uL (160-400); Red Blood Count 3.18 X10*6/uL (4.60-5.80); Red Cell Distribution Width 12.6 % (11.0-16.0); SCAN SMEAR FLAG 1; White Blood Count 4.7 X10*3/uL (4.8-10.8)
[2020-04-03 09:06] LABS: SLIDE REVIEW VERIFIED
[2020-04-03] MEDS: Sacubitril/Valsartan 24/26 1 TAB TABLET PO ×2 (09:08→22:07)
[2020-04-03] MEDS: Omeprazole 20 MG CAPSULE.DR PO ×2 (09:08→22:07)
[2020-04-03] MEDS: Metoprolol Succinate ER 100 MG TAB.ER.24H 300 MG PO (09:08)
[2020-04-03] MEDS: Digoxin 0.125 MG TABLET PO (09:08)
[2020-04-03] MEDS: Tamsulosin HCL 0.4 MG CAPSULE PO (09:08)
[2020-04-03 09:11] LABS: Anion Gap 12 (12-20); Blood Urea Nitrogen 51 mg/dL (9-16); Calcium 7.7 mg/dL (8.4-10.2); Carbon Dioxide 24 mmol/L (22-29); Chloride 112 mmol/L (96-108); Creatinine Clr Calc Pharmacy 20.9; Estimated Glomerular Filt Rate 26; Glucose Fasting 84 mg/dL (60-99); Potassium 3.9 mmol/l (3.3-5.1); Sodium 144 mmol/L (135-145)
--- NOTE | 2020-04-03 10:28 | P.PNIM_ITS ---
Subjective Subjective Date of Service: 04/03/20 Interval History: no new complaints Cardiovascular Cardiovascular: Reports no additional cardiovascular complaints Respiratory Respiratory: Reports no additional respiratory complaints Physical Exam Vital Signs: Vital Signs: Vital Signs Temp Pulse Resp BP Pulse Ox 04/03/20 07:56 97.1 F 69 19 108/47 L 99 04/03/20 04:09 96.3 F L 70 18 127/62 98 04/02/20 23:42 96.8 F 69 18 109/49 L 98 04/02/20 19:45 97 F 69 135/61 99 04/02/20 15:36 96.7 F L 70 20 122/62 97 04/02/20 11:45 96.7 F L 71 16 111/54 L 99 Body Mass Index 18.9 General: AO X 3, no acute distress Resp: CTA bilateral CVS: S1,S2,RRR GI: soft, non tender, non distended Neuro: motor grossly intact Psych: appropriate affect Objective Data Current Medications Generic Name Dose Route Start Last Admin Trade Name Freq PRN Reason Stop Dose Admin Albuterol/Ipratropium 3 ml 04/02/20 00:02 Albuterol/Iprat 2.5/0.5mg 3 Ml Ampul.Neb INHALE QID PRN Shortness Of Breath Cyanocobalamin 1,000 mcg 04/02/20 00:02 Cyanocobalamin (Vitamin B-12) 1,000 Mcg/Ml Vial IM .QMONTH ANDREZ Digoxin 0.125 mg 04/02/20 09:00 04/03/20 09:08 Digoxin 0.125 Mg Tablet PO 0.125 mg DAILY ANDREZ Administration Docusate Sodium 100 mg 04/02/20 00:02 Docusate Sodium 100 Mg Capsule PO DAILY PRN Constipation Lactated Ringer's 1,000 mls @ 100 mls/hr 04/02/20 08:45 04/03/20 05:55 Lr IVCONT Not Given .Q10H ANDREZ Ampicillin Sodium 1 gm/ Sodium 50 mls @ 100 mls/hr 04/02/20 10:00 04/03/20 09:09 Chloride IV 200 mls/hr Q12H ANDREZ Administration Insulin Human Lispro 0 unit 04/02/20 07:30 04/03/20 09:07 Insulin Lispro 100 Unit/Ml 3 Ml Vial SUBCUT Not Given QIDACHS [facility] Protocol Metoprolol Succinate 300 mg 10/15/20 09:00 04/03/20 09:08 Metoprolol Succinate Er 100 Mg Tab.Er.24h PO 300 mg DAILY [facility] Administration Protocol Omeprazole 20 mg 04/02/20 09:00 04/03/20 09:08 Omeprazole 20 Mg Capsule.Dr PO 20 mg BID [facility] Administration Ondansetron HCl 4 mg 04/02/20 00:02 Ondansetron Hcl 4 Mg/2 Ml Vial IVPUSH Q8H PRN Nausea and Vomiting Pharmacy Consult 1 each 04/01/20 19:55 Consult Rx Perform Med Rec MISCELLANE ONCE PRN Consult order Sacubitril/Valsartan 1 tab 04/02/20 09:00 04/03/20 09:08 Sacubitril/Valsartan 1 Tab Tablet PO 1 tab BID [facility] Administration Protocol Sodium Chloride 3 ml 04/02/20 00:02 04/03/20 09:07 0.9 % Sodium Chloride Flush 3 Ml Syringe IVFLUSH Not Given QSHIFT [facility] Tamsulosin HCl 0.4 mg 04/02/20 09:00 04/03/20 09:08 Tamsulosin Hcl 0.4 Mg Capsule PO 0.4 mg DAILY [facility] Administration Warfarin Sodium 7.5 mg 04/05/20 16:00 Warfarin Sodium 7.5 Mg Tablet PO [email or web address] [facility] Warfarin Sodium 5 mg 04/03/20 16:00 Warfarin Sodium 5 Mg Tablet PO [email or web address] [facility] Labs CBC & Chem 7: 04/03/20 08:12 04/03/20 08:12 Microbiology Microbiology Results: Microbiology 04/01/20 17:05 Urine clean catch - Clean Catch Midstream Urine Culture - Final No growth. 04/01/20 22:01 Blood - Venous Blood Culture - Preliminary No growth after 24 hours. 04/01/20 21:47 Blood - Venous Blood Culture - Preliminary No growth after 24 hours. Assessment and Plan (1) Acute renal failure (ARF): Status: Acute (2) Bacterial UTI: Status: Acute (3) Urgency of micturition: Status: Acute (4) BPH with obstruction/lower urinary tract symptoms: Status: Acute (5) Dysuria: Status: Acute (6) Obstructive uropathy: Status: Acute (7) Atrial fibrillation: Status: Inactive (8) COPD (chronic obstructive pulmonary disease): Status: Inactive (9) HTN (hypertension): Status: Inactive (10) Diabetes: Status: Inactive (11) CHF (congestive heart failure): Status: Inactive Assessment and Plan: 85M presented with urinary retention BPH with urinary retention complicated by obstructive uropathy with acute kidney injury and urinary tract infection status post full insertion and 1800 cc urine postvoid residual close monitoring of ins and outs IV fluids monitor BMP, creatnine improving urology eval Flomax previous culture was VRE, continue ampicillin follow-up cultures AFib metoprolol, dig warfarin with supratherapeutic INR chronic systolic chf metoprolol, entresto DM insulin
[2020-04-03 11:20] VITALS: BP 137/60; PULSE 70; RESP 19; TEMP 35.9; O2SAT 100
[2020-04-03 12:02] LABS: Glucose, Whole Blood 87 mg/dL (60-115)
[2020-04-03] MEDS: Lactated Ringers 1,000 ML 100 ML IVCONT ×2 (12:54→22:49)
--- NOTE | 2020-04-03 13:56 | MHC.CM.PN ---
DC PLAN CONTINUES TO BE HOME, PT REFUSING VNA. PER MULTIDISCIPLINARY ROUNDS, PT LIKELY TO DC OVER THE WEEKEND
[2020-04-03] MEDS: Calcium Carbonate 750 MG TAB.CHEW PO (14:41)
[2020-04-03 15:37] VITALS: BP 133/59; PULSE 69; RESP 18; O2SAT 100
[2020-04-03 16:07] LABS: Glucose, Whole Blood 96 mg/dL (60-115)
[2020-04-03 19:16] VITALS: BP 140/61; PULSE 71; RESP 19; TEMP 36.2; O2SAT 100
[2020-04-03 20:50] LABS: Glucose, Whole Blood 91 mg/dL (60-115)
[2020-04-03] MEDS: Ampicillin Sodium 1 GM in 0.9 % Sodium Chloride 100 ML IV (22:06)
[2020-04-03 23:20] VITALS: BP 141/69; PULSE 78; RESP 19; TEMP 36.7; O2SAT 96
[2020-04-04 03:28] VITALS: BP 114/53; PULSE 78; RESP 19; TEMP 36.4; O2SAT 100
[2020-04-04 07:32] LABS: Basophils Percent Auto 0.4 % (0-2); Eosinophils Absolute Auto 0.3 X10*3/uL (0.0-0.4); Hematocrit 30.2 % (42-52); Hemoglobin 9.5 g/dl (14.0-18.0); Imm Gran Abs Auto 0.02 X10*3/uL (0.00-0.03); Imm Gran Pct Auto 0.4 % (0.0-0.4); Lymphocytes Absolute Auto 0.5 X10*3/uL (1.2-4.9); Lymphocytes Percent Auto 11.5 % (20-40); MANUAL DIFF FLAG SCAN; Mean Corpuscular HGB Conc 31.5 g/dl (31.0-36.0); Mean Corpuscular Hemoglobin 32.4 pg (27.0-33.0); Mean Corpuscular Volume 103.1 fL (80-98); Mean Platelet Volume 9.8 fL (9.4-12.4); Monocytes Absolute Auto 0.4 X10*3/uL (0.1-1.2); Neutrophils Absolute Auto 3.3 X10*3/uL (2.0-8.3); Neutrophils Percent Auto 72.7 % (45-73); Platelet Count 170 X10*3/uL (160-400); Red Blood Count 2.93 X10*6/uL (4.60-5.80); Red Cell Distribution Width 12.4 % (11.0-16.0); SCAN SMEAR FLAG 1; White Blood Count 4.6 X10*3/uL (4.8-10.8)
[2020-04-04 08:00] VITALS: BP 119/53; PULSE 70; RESP 18; TEMP 36.1; O2SAT 93
[2020-04-04 08:02] LABS: Anion Gap 10 (12-20); Blood Urea Nitrogen 41 mg/dL (9-16); Calcium 7.5 mg/dL (8.4-10.2); Carbon Dioxide 26 mmol/L (22-29); Chloride 112 mmol/L (96-108); Creatinine Clr Calc Pharmacy 32.3; Estimated Glomerular Filt Rate 43; Glucose Fasting 79 mg/dL (60-99); Potassium 3.8 mmol/l (3.3-5.1); Sodium 144 mmol/L (135-145)
[2020-04-04 08:11] LABS: SLIDE REVIEW VERIFIED
[2020-04-04 08:22] LABS: Glucose, Whole Blood 76 mg/dL (60-115)
--- NOTE | 2020-04-04 08:47 | PM.DS ---
DS: Providers Provider Date of admission: 04/01/20 21:59 Primary care physician: Sam Ruffin MD Consults: 04/02/20 00:02 Consult to Physician Routine Consulting Provider: Demond Crockett III Reason for consultation: Obstructive uropathy Has provider been notified: No DS: Diagnosis Discharge Diagnosis (1) Obstructive uropathy: Status: Acute (2) BPH with obstruction/lower urinary tract symptoms: Status: Acute (3) Bacterial UTI: Status: Acute DS: Summary Hospital Course Hospital Course: From initial H&P: this is an 85-year-old male with past medical history of AFib, HTN cough history of esophageal cancer status post resection, CHF with reduced ejection fraction of 25%, GERD, celiac disease, BPH status post partial prostatectomy in December of this year, who presents to the hospital after routine labs showed abnormal numbers. Patient reports that he was called by his doctor to come to the hospital because his lab values were abnormal. He has been having significant difficulty with peeing. He reports that he has been having urinary retention and not able to empty his bladder. He had a UTI diagnosed on the 28 of March and was on antibiotics but reports that he has been having recurrent UTI and has been on antibotics for long time. but his dysuria and urgency remain. He has been feeling significantly weak with poor appetite for the past 2-3 weeks. He underwent partial prostatectomy on December. It appears that his lab showed elevated creatinine and BUN. In the ED a Bernabe catheter was inserted an 1800 cc of urine was drained. Patient had obstructive uropathy. CT of the abdomen shows interval development of moderate left and severe right-sided hydroureteronephrosis in the setting of an overly distended bladder and enlarged prostate gland. patient reports that he has an appointment with his urologist for the to undergo another prostatectomy procedure. on arrival to the ED hemodynamically stable with no significant abnormal vitals lab significant for normal WBC, hemoglobin of 10.4 which is around his baseline for the past few months, MCV of 104, INR 3.6, BUN of 77 with a creatinine of 4.73, lactic acid of 2.4 which improved 0.9 after fluids, UA positive for proteins, blood, nitrates, leukocyte Estrace and WBC. PAST MEDICAL HISTORY: Atrial fibrillation. Hypertension. History of esophageal cancer, status post resection. chf with reduced EF (25%) GERD. Celiac disease. PAST SURGICAL HISTORY: 1. Left inguinal hernia repair. 2. Left shoulder surgery x2. 3. Throat surgery to repair vocal chord. 4. 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 5. AICD placement Hospital course: Patient was admitted for acute kidney injury due to obstructive uropathy. He had Bernabe placed and obstruction resolved, his renal function improved from a creatinine of 4.73 on admission to 1.55 at discharge. he received ampicillin for possible urinary tract infection, urine culture was negative. patient will be discharged with Brenabe catheter in place and will follow-up with urology for definitive treatment. Time Spent with Patient Time attestation: Total time spent providing and/or coordinating discharge services: Physical Exam Vital Signs: Vital Signs: Vital Signs Temp Pulse Resp BP Pulse Ox 04/04/20 08:00 96.9 F 70 18 119/53 L 93 04/04/20 03:28 97.6 F 78 19 114/53 L 100 04/03/20 23:20 98.0 F 78 19 141/69 H 96 04/03/20 19:16 97.2 F 71 19 140/61 H 100 04/03/20 15:37 69 18 133/59 L 100 04/03/20 11:20 96.7 F L 70 19 137/60 100 Body Mass Index 18.9 General: AO X 3, no acute distress Resp: CTA bilateral CVS: S1,S2,RRR GI: soft, non tender, non distended Neuro: motor grossly intact Psych: appropriate affect DS: Data Data Completed and Pending Labs on day of discharge: Labs from last 24 hours 04/04/20 04/04/20 04/04/20 08:14 06:53 06:53 WBC 4.6 L RBC 2.93 L Hgb 9.5 L Hct 30.2 L MCV 103.1 H MCH 32.4 MCHC 31.5 RDW 12.4 Plt Count 170 MPV 9.8 Immature Gran % (Auto) 0.4 Neut % (Auto) 72.7 Lymph % (Auto) 11.5 L [place] % (Auto) 8.0 Eos % (Auto) 7.0 H Baso % (Auto) 0.4 Lymph # (Auto) 0.5 L [place] # (Auto) 0.4 Eos # (Auto) 0.3 Baso # (Auto) 0.0 Abs Immat Gran (auto) 0.02 Absolute Neuts (auto) 3.3 Absolute Nucleated RBC 0.000 Nucleated RBC % (auto) 0.0 Smear Tech's Comments VERIFIED Sodium 144 Potassium 3.8 Chloride 112 H Carbon Dioxide 26 Anion Gap 10 L BUN 41 H Creatinine 1.55 H Estim Creat Clear Calc 32.3 Estimated GFR 43 POC Glucose 76 Fasting Glucose 79 Calcium 7.5 L 04/03/20 04/03/20 04/03/20 20:46 16:04 11:58 WBC RBC Hgb Hct MCV MCH MCHC RDW Plt Count MPV Immature Gran % (Auto) Neut % (Auto) Lymph % (Auto) [place] % (Auto) Eos % (Auto) Baso % (Auto) Lymph # (Auto) [place] # (Auto) Eos # (Auto) Baso # (Auto) Abs Immat Gran (auto) Absolute Neuts (auto) Absolute Nucleated RBC Nucleated RBC % (auto) Smear Tech's Comments Sodium Potassium Chloride Carbon Dioxide Anion Gap BUN Creatinine Estim Creat Clear Calc Estimated GFR POC Glucose 91 96 87 Fasting Glucose Calcium 04/03/20 04/03/20 08:12 08:12 WBC 4.7 L RBC 3.18 L Hgb 10.4 L Hct 32.8 L MCV 103.1 H MCH 32.7 MCHC 31.7 RDW 12.6 Plt Count 175 MPV 9.5 Immature Gran % (Auto) 0.2 Neut % (Auto) 77.3 H Lymph % (Auto) 10.6 L [place] % (Auto) 7.2 Eos % (Auto) 4.3 H Baso % (Auto) 0.4 Lymph # (Auto) 0.5 L [place] # (Auto) 0.3 Eos # (Auto) 0.2 Baso # (Auto) 0.0 Abs Immat Gran (auto) 0.01 Absolute Neuts (auto) 3.6 Absolute Nucleated RBC 0.000 Nucleated RBC % (auto) 0.0 Smear Tech's Comments VERIFIED Sodium 144 Potassium 3.9 Chloride 112 H Carbon Dioxide 24 Anion Gap 12 BUN 51 H Creatinine 2.40 H Estim Creat Clear Calc 20.9 Estimated GFR 26 POC Glucose Fasting Glucose 84 Calcium 7.7 L Preliminary micro results at discharge 04/01/20 22:01 Blood Culture - Preliminary Blood - Venous No growth after 48 hours. 04/01/20 21:47 Blood Culture - Preliminary Blood - Venous No growth after 48 hours. Discharge Plan Discharge Patient Disposition: Home, Self-Care Referrals: Sam Ruffin MD [Primary Care Provider] - Demond Crockett III, MD [Physician] - 1 Week (urinary retention) Discharge Medications: Continued oxybutynin chloride 10 mg tablet extended release 24hr 1 tab PO DAILY RF: 0 omeprazole 20 mg capsule,delayed release(DR/EC) 20 mg PO BID RF: 0 Anoro Ellipta 62.5-25 mcg/actuation blister with device 1 puff PO DAILY RF: 0 Entresto 24-26 mg tablet 1 tab PO BID RF: 0 ipratropium-albuterol 0.5 mg-3 mg(2.5 mg base)/3 mL Solution For Nebulization 3 ml INHALATION QID PRN (Reason: Shortness Of Breath) RF: 0 warfarin [Jantoven] 7.5 mg Tablet 7.5 mg PO SUWE RF: 0 metoprolol succinate 200 mg Tablet Extended Release 24 Hr 300 mg PO DAILY RF: 0 tamsulosin 0.4 mg Capsule 0.4 mg PO DAILY RF: 0 cyanocobalamin (vitamin B-12) 1,000 mcg/mL Solution 1,000 mcg IM QMONTH RF: 0 warfarin [Jantoven] 5 mg Tablet 5 mg PO MOTUTHFRSA RF: 0 digoxin 125 mcg (0.125 mg) Tablet 125 mcg PO DAILY RF: 0 Discharge Orders: Discharge Order (Routine); Ordered 04/04/20 Ordered By: Ruben Holliday Activity on Discharge: As tolerated Visit Report Forms: Patient Portal Discharge page Care Plan Goals: manage urinary retention Health Concerns: urinary retention Plan of Treatment: keep bernabe, follow up with urology
[2020-04-04 09:34] VITALS: BP 119/53; PULSE 70
[2020-04-04] MEDS: Digoxin 0.125 MG TABLET PO (09:34)
[2020-04-04] MEDS: Omeprazole 20 MG CAPSULE.DR PO (09:34)
[2020-04-04] MEDS: Sacubitril/Valsartan 24/26 1 TAB TABLET PO (09:34)
[2020-04-04] MEDS: Metoprolol Succinate ER 100 MG TAB.ER.24H 300 MG PO (09:34)
[2020-04-04] MEDS: Tamsulosin HCL 0.4 MG CAPSULE PO (09:34)
[2020-04-04] MEDS: Ampicillin Sodium 1 GM in 0.9 % Sodium Chloride 100 ML IV (09:40)
--- NOTE | 2020-04-04 10:01 | MHC.CM.PN ---
PATIENT IS DISCHARGED HOME WITH NO SERVICES
[2020-04-04 10:45] LABS: INTERNATIONAL NORM RATIO 2.2 (0.9-1.1); Prothrombin Time 26.3 SEC (10.8-13.0)
[2020-04-04 11:40] LABS: Glucose, Whole Blood 83 mg/dL (60-115)
[2020-04-04 11:54] VITALS: BP 134/59; PULSE 69; RESP 18; TEMP 36.4; O2SAT 98
== END 2020-04-04 13:02 | disposition home or self-care (01) | DRG 683 ==
LOC: HO.ED 21:42 → HO.S3 22:31
PROVIDERS: Admitting Provider Internal Medicine; Emergency Provider Internal Medicine; PCP Internal Medicine; Visit Provider Internal Medicine
DX: N17.9 Acute kidney failure, unspecified (principal); N39.0 Urinary tract infection, site not specified; I13.0 Hypertensive heart and chronic kidney disease with heart failure and stage 1 through stage 4 chronic kidney disease, or unspecified chronic kidney disease; I50.22 Chronic systolic (congestive) heart failure; N13.8 Other obstructive and reflux uropathy; I48.91 Unspecified atrial fibrillation; N18.30 Chronic kidney disease, stage 3 unspecified; E11.22 Type 2 diabetes mellitus with diabetic chronic kidney disease; N40.1 Benign prostatic hyperplasia with lower urinary tract symptoms; Z87.891 Personal history of nicotine dependence; Z86.19 Personal history of other infectious and parasitic diseases; Z85.01 Personal history of malignant neoplasm of esophagus; Z95.810 Presence of automatic (implantable) cardiac defibrillator; Z79.01 Long term (current) use of anticoagulants; Z79.899 Other long term (current) drug therapy
CPT/HCPCS: 36415; 71045; 74176; 80048; 80076; 80162; 81001; 82607; 82746; 82947; 83605; 85025; 85610; 85730; 87040; 87086; 93005; 96361; 96365; 99285

== ENCOUNTER 2020-04-15 14:32 | Emergency (ER) | payer MEDICARE, SELFPAY ==
[2020-04-15 15:08] VITALS: BP 121/57; PULSE 71; RESP 16; TEMP 36.8; O2SAT 99; BMI 19.0
--- NOTE | 2020-04-15 19:16 | PC.NURSE ---
pt resting in stretcher with c/o im unable to urinate since last night . Pt alert, respirations easy, n/l. skin w/d. Pt chg into gown and awaiting MD's eval. Bladder scan obtained to TUSHAR approx >[address] Cassidy aware. Will continue to monitor pt.
--- NOTE | 2020-04-15 19:27 | ED.MALEGU ---
HPI - Male Genitourinary General Chief complaint: Urogenital-Male Stated complaint: catheter issue Time Seen by Provider: 04/15/20 19:15 Source: patient Limitations: no limitations History of Present Illness HPI Narrative: Patient is an 85-year-old male with past medical history of BPH with a Bernabe placed 10 days ago. He states he drained last night around 23:00 and then when he woke up this morning there was nothing in the bag. He states he waited all day but there was no output. Denies any pain. Related Data Home Medications Medication Instructions Recorded Confirmed Anoro Ellipta 1 puff PO DAILY 04/01/20 04/15/20 Entresto 1 tab PO BID 04/01/20 04/15/20 digoxin 125 mcg PO DAILY 04/01/20 04/15/20 ipratropium-albuterol 3 ml INHALATION QID PRN 04/01/20 04/15/20 metoprolol succinate 300 mg PO QPM 04/01/20 04/15/20 omeprazole 20 mg PO BID 04/01/20 04/15/20 tamsulosin 0.4 mg PO QAM 04/01/20 04/15/20 warfarin [Jantoven] 5 mg PO MOTUTHFRSA 04/01/20 04/15/20 warfarin [Jantoven] 7.5 mg PO SUWE 04/01/20 04/15/20 Allergies Allergy/AdvReac Type Severity Reaction Status Date / Time No Known Allergies Allergy Unknown NONE Verified 04/06/20 08:49 Review of Systems Review of Systems: Constitutional: No Weight loss, No Fever, No Chills Genitourinary: no irregular bleeding, No Dysuria, No Urinary Frequency, No Hematuria, No Urinary Incontinence, No Urgency, No Flank Pain Skin: No Skin Lesions, No rash Yes all other systems are reviewed and are negative [facility] Past Medical History Medical History Atrial fibrillation (Unknown) BPH (benign prostatic hyperplasia) (Unknown) CHF (congestive heart failure) (Unknown) COPD (chronic obstructive pulmonary disease) (Unknown) Diabetes (Unknown) Esophageal cancer (Unknown) HTN (hypertension) (Unknown) Hx of cardiomyopathy Lab test negative for COVID-19 virus Pacemaker UTI (urinary tract infection) (Unknown) Surgical History AICD (automatic cardioverter/defibrillator) present (Unknown) H/O colonoscopy History of esophagectomy History of permanent cardiac pacemaker placement Hx of cardiac catheterization Hx of cataract surgery Hx of left inguinal hernia repair Hx of shoulder surgery Family History Family History Father No problems noted. Mother No problems noted. Social History Social History Household Members: Spouse Housing: House Alcohol intake: never Smoking Status: Former smoker Smoked in Last 30 Days: No Second Hand Smoke Exposure: No Advance Directives: No Advance Directives Information Provided: Yes service: No Current occupational status: retired Physical Exam Vital Signs: Vital Signs: Vital Signs Temp Pulse Resp BP Pulse Ox 04/15/20 19:51 67 16 134/62 99 04/15/20 15:08 98.2 F 71 16 121/57 L 99 Body Mass Index 19.0 Const: General: cooperative, healthy appearing, comfortable and no acute distress Orientation/consciousness: patient oriented x3 HENMT: Head: Yes normal to inspection : General: Yes Bladder palpation abnormal tender Male General Exam: Yes normal external exam (with bernabe in place) Penis: normal penis Meatus: No Blood at meatus present and No Erythema at meatus Scrotum: scrotum normal Testes: Testes normal Skin: General skin exam: no rashes or lesions noted Neuro: General: patient oriented x3 Course Course Course Narrative: 85-year-old male with past medical history of BPH with Bernabe placed approximately 10 days ago, no urine output since 23:00 last night. Bladder scan reveals 586 mL, will drain and replace Bernabe. 8pm nursing staff drained 1000 mL from the ladder, will send you a. Bernabe was replaced successfully, will discharge patient. Discharge Plan Discharge Clinical Impression: Complication of Bernabe catheter Qualifiers: Encounter type: subsequent encounter Qualified Code(s): T83.9XXD - Unspecified complication of genitourinary prosthetic device, implant and graft, subsequent encounter Patient Disposition: Home, Self-Care Instructions: Bernabe Catheter Placement and Care (ED) Prescriptions: No Action omeprazole 20 mg capsule,delayed release(DR/EC) 20 mg PO BID RF: 0 Anoro Ellipta 62.5-25 mcg/actuation blister with device 1 puff PO DAILY RF: 0 Entresto 24-26 mg tablet 1 tab PO BID RF: 0 ipratropium-albuterol 0.5 mg-3 mg(2.5 mg base)/3 mL Solution For Nebulization 3 ml INHALATION QID PRN (Reason: Shortness Of Breath) RF: 0 warfarin [Jantoven] 7.5 mg Tablet 7.5 mg PO SUWE RF: 0 metoprolol succinate 200 mg Tablet Extended Release 24 Hr 300 mg PO QPM RF: 0 tamsulosin 0.4 mg Capsule 0.4 mg PO QAM RF: 0 warfarin [Jantoven] 5 mg Tablet 5 mg PO MOTUTHFRSA RF: 0 digoxin 125 mcg (0.125 mg) Tablet 125 mcg PO DAILY RF: 0 Referrals: Sam Ruffin MD [Primary Care Provider] - 2 days
[2020-04-15 19:51] VITALS: BP 134/62; PULSE 67; RESP 16; O2SAT 99
--- NOTE | 2020-04-15 19:57 | PC.NURSE ---
PLASENCIA CATH INSERTED WITHOUT DIFF. PT TOLERATED WELL. APPROX 1000ML OF CLOUDY PALE YELLOW COLORED URINE IN PLASENCIA BAG. PT STATES IM FEELING BETTER . SAMPLE OBTAINED. WILL CONTINUE TO MONITOR PT.
[2020-04-15 20:21] LABS: Appearance Urine CLOUDY; Color Urine YELLOW; Glucose Urine UA NEG (NEG); Leukocyte Esterase Urine 3+ (NEG); Nitrite Urine NEG (NEG); Urine Blood 2+ (NEG); Urine Ketones NEG (NEG); Urine Protein 2+ MG/DL (NEG-TRACE)
[2020-04-15 20:28] LABS: Bacteria Urine 1+ /LPF; Squamous Epithelial Cell Urine 1+ /LPF; WBC Urine TNTC /HPF (0-4)
== END 2020-04-15 20:31 | disposition home or self-care (01) ==
PROVIDERS: Physician Assistant; Emergency Provider Internal Medicine; PCP Internal Medicine
DX: T83.9XXA Unspecified complication of genitourinary prosthetic device, implant and graft, initial encounter (principal); N40.0 Benign prostatic hyperplasia without lower urinary tract symptoms; Y82.9 Unspecified medical devices associated with adverse incidents; Y92.9 Unspecified place or not applicable; Z79.899 Other long term (current) drug therapy; Z87.891 Personal history of nicotine dependence
CPT/HCPCS: 81001; 99284

== ENCOUNTER 2020-05-04 08:01 | Day surgery (SDC) | payer MEDICARE, SELFPAY ==
[2020-04-06 08:22] VITALS: BMI 20.3
[2020-04-06 09:23] VITALS: BMI 19.0
[2020-04-07 11:53] VITALS: BP 113/54; PULSE 70; RESP 20; O2SAT 100
--- NOTE | 2020-04-07 12:02 | HO.ANESPROP2 ---
HPI - Anesthesia Eval Consult details Narrative: 85yo for Cysto/?TURBT Laser of prostate with GA-LMA 4 11/2019 [facility] Past Medical History Medical History Atrial fibrillation (Unknown) BPH (benign prostatic hyperplasia) (Unknown) CHF (congestive heart failure) (Unknown) COPD (chronic obstructive pulmonary disease) (Unknown) Diabetes (Unknown) Esophageal cancer (Unknown) HTN (hypertension) (Unknown) Hx of cardiomyopathy Lab test negative for COVID-19 virus Pacemaker UTI (urinary tract infection) (Unknown) Functional capacity: independent ambulation Family History Family History Father No problems noted. Mother No problems noted. Family history of problems with anesthesia: No Surgical History Surgical History AICD (automatic cardioverter/defibrillator) present (Unknown) H/O colonoscopy History of esophagectomy History of permanent cardiac pacemaker placement Hx of cardiac catheterization Hx of cataract surgery Hx of left inguinal hernia repair Hx of shoulder surgery History of Problems with Anesthesia: No Social History Social History Household Members: Spouse Housing: House Alcohol intake: never Smoking Status: Former smoker Smoked in Last 30 Days: No Second Hand Smoke Exposure: No Advance Directives: No Advance Directives Information Provided: Yes service: No Current occupational status: retired Narrative Narrative: No recent illness Limited activity, no CP/SOB at rest Cardiac OV 04/07/20 - stable Meds Allergies Allergy/AdvReac Type Severity Reaction Status Date / Time No Known Allergies Allergy Unknown NONE Verified 04/06/20 08:49 Home Medications Medication Instructions Recorded Confirmed Type Anoro Ellipta 1 puff PO DAILY 04/01/20 04/15/20 History Entresto 1 tab PO BID 04/01/20 04/15/20 History digoxin 125 mcg PO DAILY 04/01/20 04/15/20 History ipratropium-albuterol 3 ml INHALATION QID PRN 04/01/20 04/15/20 History metoprolol succinate 300 mg PO QPM 04/01/20 04/15/20 History omeprazole 20 mg PO BID 04/01/20 04/15/20 History tamsulosin 0.4 mg PO QAM 04/01/20 04/15/20 History warfarin [Jantoven] 5 mg PO MOTUTHFRSA 04/01/20 04/15/20 History warfarin [Jantoven] 7.5 mg PO SUWE 04/01/20 04/15/20 History Exam Exam Date and Time: April 07, 2020 1202 Height,Weight and Vital Signs: Height 6 ft Weight 63.503 kg Pulse Resp BP Pulse Ox 70 20 113/54 L 100 04/07/20 11:53 04/07/20 11:53 04/07/20 11:53 04/07/20 11:53 Pertinent Lab Results Pertinent Lab Results: Laboratory Tests 04/07/20 04/07/20 12:46 12:46 WBC 5.5 RBC 3.06 L Hgb 9.8 L Hct 31.8 L Plt Count 196 Sodium 143 Potassium 3.7 Chloride 110 H Carbon Dioxide 22 BUN 28 H Creatinine 1.19 Narrative Narrative: EKG 04/01/20: V-paced @ 70, Low Volt QRS Device Interrogation 03/05/20: [employer] VVIR 70-120, RVP 92% and LVP 92%, 5 beats of VT, No shocks, Nml Device function, good battery life ECHO 02/26/20: LV nml size, mod reduced systolic function, EF 25-30%, Severe biatrial enlargement, mild pulm htn, RV nml size with low-nml systolic motion, no signif valvular abnormalities Airway Mallampati Class: II TM Dist: >3cm Neck ROM: Full Denture: Upper and Lower (Doesn't wear) Heart: RRR, L side ICD Lungs: CTAB Assessment and Plan Assessment Anesthesia Assessment: Anesthesia Plan Discussed and PAT Visit
[2020-04-07 12:04] VITALS: BMI 19.5
[2020-04-07 13:43] LABS: Hematocrit 31.8 % (42-52); Hemoglobin 9.8 g/dl (14.0-18.0); Mean Corpuscular HGB Conc 30.8 g/dl (31.0-36.0); Mean Corpuscular Volume 103.9 fL (80-98); Mean Platelet Volume 9.5 fL (9.4-12.4); Platelet Count 196 X10*3/uL (160-400); Red Blood Count 3.06 X10*6/uL (4.60-5.80); Red Cell Distribution Width 12.7 % (11.0-16.0); White Blood Count 5.5 X10*3/uL (4.8-10.8)
[2020-04-07 14:50] LABS: Anion Gap 15 (12-20); Blood Urea Nitrogen 28 mg/dL (9-16); Carbon Dioxide 22 mmol/L (22-29); Chloride 110 mmol/L (96-108); Creatinine Clr Calc Pharmacy 43.4; Estimated Glomerular Filt Rate 58; Glucose Random 129 mg/dL (60-115); Potassium 3.7 mmol/l (3.3-5.1); Sodium 143 mmol/L (135-145)
[2020-05-04 08:19] VITALS: BP 132/59; PULSE 71; RESP 18; TEMP 36.2; O2SAT 98
[2020-05-04 08:42] LABS: Glucose, Whole Blood 62 mg/dL (60-115)
[2020-05-04 09:04] LABS: Prothrombin Time 12.3 SEC (10.8-13.0)
--- NOTE | 2020-05-04 09:32 | P.CONAN_ITS ---
[facility] Past Medical History Medical History Atrial fibrillation (Unknown) BPH (benign prostatic hyperplasia) (Unknown) CHF (congestive heart failure) (Unknown) COPD (chronic obstructive pulmonary disease) (Unknown) Diabetes (Unknown) Esophageal cancer (Unknown) HTN (hypertension) (Unknown) Hx of cardiomyopathy Lab test negative for COVID-19 virus Pacemaker UTI (urinary tract infection) (Unknown) Functional capacity: independent ambulation Family History Family History Father No problems noted. Mother No problems noted. Surgical History Surgical History AICD (automatic cardioverter/defibrillator) present (Unknown) H/O colonoscopy History of esophagectomy History of permanent cardiac pacemaker placement Hx of cardiac catheterization Hx of cataract surgery Hx of left inguinal hernia repair Hx of shoulder surgery Social History Social History Household Members: Spouse Housing: House Alcohol intake: never Smoking Status: Former smoker Second Hand Smoke Exposure: No Use of substances other than those prescribed or required for medical reasons: No Advance Directives Information Provided: No Recently lost weight without trying: Yes service: No Current occupational status: retired [employer] Allergies Allergy/AdvReac Type Severity Reaction Status Date / Time No Known Allergies Allergy Unknown NONE Verified 04/06/20 08:49 Home Medications Medication Instructions Recorded Confirmed Type Anoro Ellipta 1 puff PO DAILY 04/01/20 05/04/20 History Entresto 1 tab PO BID 04/01/20 04/15/20 History digoxin 125 mcg PO DAILY 04/01/20 04/15/20 History ipratropium-albuterol 3 ml INHALATION QID PRN 04/01/20 04/15/20 History metoprolol succinate 300 mg PO QPM 04/01/20 04/15/20 History omeprazole 20 mg PO BID 04/01/20 05/04/20 History tamsulosin 0.4 mg PO QAM 04/01/20 04/15/20 History warfarin [Jantoven] 5 mg PO MOTUTHFRSA 04/01/20 04/15/20 History warfarin [Jantoven] 7.5 mg PO SUWE 04/01/20 04/15/20 History Exam Exam Date and Time: May 04, 2020 0932 Height,Weight and Vital Signs: Height 6 ft Weight 65.317 kg Last Vital Signs Temp 97.1 F 05/04/20 08:19 Pulse 71 05/04/20 08:19 Resp 18 05/04/20 08:19 BP 132/59 L 05/04/20 08:19 Pulse Ox 98 05/04/20 08:19 Pertinent Lab Results Pertinent Lab Results: Laboratory Tests 04/07/20 04/07/20 05/04/20 12:46 12:46 08:20 WBC 5.5 RBC 3.06 L Hgb 9.8 L Hct 31.8 L MCV 103.9 H MCH 32.0 MCHC 30.8 L RDW 12.7 Plt Count 196 MPV 9.5 Absolute Nucleated RBC 0.000 Nucleated RBC % (auto) 0.0 PT INR Sodium 143 Potassium 3.7 Chloride 110 H Carbon Dioxide 22 Anion Gap 15 BUN 28 H Creatinine 1.19 Estim Creat Clear Calc 43.4 Estimated GFR 58 POC Glucose 62 Random Glucose 129 H Calcium 8.0 L 05/04/20 08:47 WBC RBC Hgb Hct MCV MCH MCHC RDW Plt Count MPV Absolute Nucleated RBC Nucleated RBC % (auto) PT 12.3 D INR 1.0 Sodium Potassium Chloride Carbon Dioxide Anion Gap BUN Creatinine Estim Creat Clear Calc Estimated GFR POC Glucose Random Glucose Calcium Assessment and Plan Assessment Anesthesia Assessment: Anesthesia Plan Discussed and Chart Reviewed Final Anesthetic Review NPO: Yes ASA Class: III Final Preanesthetic Review: No Changes in Pt Med Stat, Meds/Allgs Chart Reviewed, Consent Obtained/Reviewed and Anes Risks/Benef Reviewed Patient Risk: Intermediate Procedure Risk: Low Assessment/Block/Sedation in SS: Assess/Block/Sedation-SS Anesthetic Plan Anesthetic Plan: GA Disposition: Standard PACU
--- NOTE | 2020-05-04 09:40 | MHC.SHP ---
Pre-Procedural Eval Section B Chief Complaint: Hyperplasia with LUTS Details of Present Illness: LUTs - residual prostate tissue Relevant Family History (Specify if Yes): No Present Medications: see Short Stay Collaborative assessment Medical History: Significant History History of Previous Operations: Relevant previous surgery/procedure and date(s) (prior laser BPH in office) Allergies: Allergies Allergy/AdvReac Type Severity Reaction Status Date / Time No Known Allergies Allergy Unknown NONE Verified 04/06/20 08:49 Review of Systems Sugical H&P ROS: Negative: Constitution, Cardiovascular, Respiratory, Neurological, Psychiatric, Hem-Onc, Allergic/Immunologic, Gastrointestinal, Genitourinary, Musculoskeletal, Integumentary, Endocrine and Eyes/Ears/Nose/Throat Exam Surgical H&P Exam: Normal: HEENT, Normal: Heart, Normal: Lungs, Normal: Extremities, Normal: Abdomen, Normal: Skin and Normal: Neurological Plan Diagnosis/Plan: Unchanged Patient has been examined and remains a candidate for the planned procedure
--- NOTE | 2020-05-04 09:56 | P.CONAN_ITS ---
[facility] Past Medical History Medical History Atrial fibrillation (Unknown) BPH (benign prostatic hyperplasia) (Unknown) CHF (congestive heart failure) (Unknown) COPD (chronic obstructive pulmonary disease) (Unknown) Diabetes (Unknown) Esophageal cancer (Unknown) HTN (hypertension) (Unknown) Hx of cardiomyopathy Lab test negative for COVID-19 virus Pacemaker UTI (urinary tract infection) (Unknown) Functional capacity: independent ambulation Family History Family History Father No problems noted. Mother No problems noted. Surgical History Surgical History AICD (automatic cardioverter/defibrillator) present (Unknown) H/O colonoscopy History of esophagectomy History of permanent cardiac pacemaker placement Hx of cardiac catheterization Hx of cataract surgery Hx of left inguinal hernia repair Hx of shoulder surgery Social History Social History Household Members: Spouse Housing: House Alcohol intake: never Smoking Status: Former smoker Second Hand Smoke Exposure: No Use of substances other than those prescribed or required for medical reasons: No Advance Directives Information Provided: No Recently lost weight without trying: Yes service: No Current occupational status: retired [employer] Allergies Allergy/AdvReac Type Severity Reaction Status Date / Time No Known Allergies Allergy Unknown NONE Verified 04/06/20 08:49 Home Medications Medication Instructions Recorded Confirmed Type Anoro Ellipta 1 puff PO DAILY 04/01/20 05/04/20 History Entresto 1 tab PO BID 04/01/20 04/15/20 History digoxin 125 mcg PO DAILY 04/01/20 04/15/20 History ipratropium-albuterol 3 ml INHALATION QID PRN 04/01/20 04/15/20 History metoprolol succinate 300 mg PO QPM 04/01/20 04/15/20 History omeprazole 20 mg PO BID 04/01/20 05/04/20 History tamsulosin 0.4 mg PO QAM 04/01/20 04/15/20 History warfarin [Jantoven] 5 mg PO MOTUTHFRSA 04/01/20 04/15/20 History warfarin [Jantoven] 7.5 mg PO SUWE 04/01/20 04/15/20 History Exam Exam Date and Time: May 04, 2020 0956 Height,Weight and Vital Signs: Height 6 ft Weight 65.317 kg Last Vital Signs Temp 97.1 F 05/04/20 08:19 Pulse 71 05/04/20 08:19 Resp 18 05/04/20 08:19 BP 132/59 L 05/04/20 08:19 Pulse Ox 98 05/04/20 08:19 Pertinent Lab Results Pertinent Lab Results: Laboratory Tests 04/07/20 04/07/20 05/04/20 12:46 12:46 08:20 WBC 5.5 RBC 3.06 L Hgb 9.8 L Hct 31.8 L MCV 103.9 H MCH 32.0 MCHC 30.8 L RDW 12.7 Plt Count 196 MPV 9.5 Absolute Nucleated RBC 0.000 Nucleated RBC % (auto) 0.0 PT INR Sodium 143 Potassium 3.7 Chloride 110 H Carbon Dioxide 22 Anion Gap 15 BUN 28 H Creatinine 1.19 Estim Creat Clear Calc 43.4 Estimated GFR 58 POC Glucose 62 Random Glucose 129 H Calcium 8.0 L 05/04/20 08:47 WBC RBC Hgb Hct MCV MCH MCHC RDW Plt Count MPV Absolute Nucleated RBC Nucleated RBC % (auto) PT 12.3 D INR 1.0 Sodium Potassium Chloride Carbon Dioxide Anion Gap BUN Creatinine Estim Creat Clear Calc Estimated GFR POC Glucose Random Glucose Calcium Airway Mallampati Class: II TM Dist: >3cm Neck ROM: Limited Assessment and Plan Assessment Anesthesia Assessment: Anesthesia Plan Discussed and Chart Reviewed Final Anesthetic Review NPO: Yes ASA Class: III Final Preanesthetic Review: No Changes in Pt Med Stat, Meds/Allgs Chart Reviewed, Consent Obtained/Reviewed and Anes Risks/Benef Reviewed Patient Risk: Intermediate Procedure Risk: Low Assessment/Block/Sedation in SS: Assess/Block/Sedation-SS Anesthetic Plan Anesthetic Plan: GA Disposition: Standard PACU
--- NOTE | 2020-05-04 09:58 | HO.ANESPROP2 ---
[facility] Past Medical History Medical History Atrial fibrillation (Unknown) BPH (benign prostatic hyperplasia) (Unknown) CHF (congestive heart failure) (Unknown) COPD (chronic obstructive pulmonary disease) (Unknown) Diabetes (Unknown) Esophageal cancer (Unknown) HTN (hypertension) (Unknown) Hx of cardiomyopathy Lab test negative for COVID-19 virus Pacemaker UTI (urinary tract infection) (Unknown) Functional capacity: independent ambulation Family History Family History Father No problems noted. Mother No problems noted. Surgical History Surgical History AICD (automatic cardioverter/defibrillator) present (Unknown) H/O colonoscopy History of esophagectomy History of permanent cardiac pacemaker placement Hx of cardiac catheterization Hx of cataract surgery Hx of left inguinal hernia repair Hx of shoulder surgery Social History Social History Household Members: Spouse Housing: House Alcohol intake: never Smoking Status: Former smoker Second Hand Smoke Exposure: No Use of substances other than those prescribed or required for medical reasons: No Advance Directives Information Provided: No Recently lost weight without trying: Yes service: No Current occupational status: retired [employer] Allergies Allergy/AdvReac Type Severity Reaction Status Date / Time No Known Allergies Allergy Unknown NONE Verified 04/06/20 08:49 Home Medications Medication Instructions Recorded Confirmed Type Anoro Ellipta 1 puff PO DAILY 04/01/20 05/04/20 History Entresto 1 tab PO BID 04/01/20 04/15/20 History digoxin 125 mcg PO DAILY 04/01/20 04/15/20 History ipratropium-albuterol 3 ml INHALATION QID PRN 04/01/20 04/15/20 History metoprolol succinate 300 mg PO QPM 04/01/20 04/15/20 History omeprazole 20 mg PO BID 04/01/20 05/04/20 History tamsulosin 0.4 mg PO QAM 04/01/20 04/15/20 History warfarin [Jantoven] 5 mg PO MOTUTHFRSA 04/01/20 04/15/20 History warfarin [Jantoven] 7.5 mg PO SUWE 04/01/20 04/15/20 History Exam Exam Date and Time: May 04, 2020 0958 Height,Weight and Vital Signs: Height 6 ft Weight 65.317 kg Last Vital Signs Temp 97.1 F 05/04/20 08:19 Pulse 71 05/04/20 08:19 Resp 18 05/04/20 08:19 BP 132/59 L 05/04/20 08:19 Pulse Ox 98 05/04/20 08:19 Pertinent Lab Results Pertinent Lab Results: Laboratory Tests 04/07/20 04/07/20 05/04/20 12:46 12:46 08:20 WBC 5.5 RBC 3.06 L Hgb 9.8 L Hct 31.8 L MCV 103.9 H MCH 32.0 MCHC 30.8 L RDW 12.7 Plt Count 196 MPV 9.5 Absolute Nucleated RBC 0.000 Nucleated RBC % (auto) 0.0 PT INR Sodium 143 Potassium 3.7 Chloride 110 H Carbon Dioxide 22 Anion Gap 15 BUN 28 H Creatinine 1.19 Estim Creat Clear Calc 43.4 Estimated GFR 58 POC Glucose 62 Random Glucose 129 H Calcium 8.0 L 05/04/20 08:47 WBC RBC Hgb Hct MCV MCH MCHC RDW Plt Count MPV Absolute Nucleated RBC Nucleated RBC % (auto) PT 12.3 D INR 1.0 Sodium Potassium Chloride Carbon Dioxide Anion Gap BUN Creatinine Estim Creat Clear Calc Estimated GFR POC Glucose Random Glucose Calcium Assessment and Plan Final Anesthetic Review ASA Class: IV
--- NOTE | 2020-05-04 10:22 | PM.OP ---
Brief Operative Note Date of Service: 05/04/20 Pre-op diagnosis: BPH, urgency frequency Post-op diagnosis: same Procedure: TURP-spike bar Surgeon: Antwan Granados MD Anesthesia: GLMA Estimated blood loss (mL): 0 Pathology: none sent Condition: stable Disposition: same day
--- NOTE | 2020-05-04 10:23 | W.PM.OPN ---
Operative Note Operative Note Date of Service: 05/04/20 Narrative: PreOperative Diagnosis: BPH with urge frequency Post Operative Diagnosis: Neovascularity on prostatic fossa Procedure: TURP Surgeon: Dr Antwan Granados Anesthesia: General Indications for procedure: This is a 85-year-old male. Has recurrent urge frequency. Laser prostate procedure performed early summer. On cystoscopy had neovascularity around the bladder neck and some bladder neck stiffness. Recommendation for TURP to address some calcified tissue. Procedure: After informed consent was verified patient brought to the operating room placed in supine position. Anesthesia administered per protocol. The patient was placed in a modified dorsal lithotomy position and prepped and draped sterile fashion. Twenty-one Singaporean cystoscope was inserted per urethra. No abnormality noted of the anterior or posterior urethra. There was a TURP defect within the prostate. Minimal median lobe. There was neovascular change on the surface. There was also a rigid bladder neck. Both ureteric orifices normal position. A cystoscope resectoscope was placed. Using the spike bar remnant prostate bilaterally was evaporated. Bladder neck was opened. The neovascular tissue was fulgurated. There was some calcification noted in the healing portion of the left lobe. This was ablated. Minimal bleeding was seen. This was addressed with fulguration. Both ureteral orifices were a distance from the working area. He tolerated procedure well. The completion a 22 Singaporean Navarro catheter with 40 cc in the balloon was placed. Irrigant was clear. He was taken in stable condition to the recovery area. Pathology: No specimens Drains: Twenty-two Singaporean Navarro as described above
[2020-05-04 10:25] VITALS: BP 121/61; PULSE 82; RESP 16; TEMP 36.6; O2SAT 96
[2020-05-04 10:30] VITALS: BP 136/59; PULSE 68; RESP 16; O2SAT 97
[2020-05-04 10:35] VITALS: BP 134/62; PULSE 89; RESP 18; O2SAT 98
[2020-05-04 10:41] VITALS: BP 129/53; PULSE 78; RESP 18; O2SAT 99
[2020-05-04 10:55] VITALS: BP 133/64; PULSE 85; RESP 18; TEMP 36.6; O2SAT 99
[2020-05-04 11:07] LABS: Glucose, Whole Blood 83 mg/dL (60-115)
--- NOTE | 2020-05-04 12:44 | HO.POSTANES ---
Post Anesthesia Evaluation Post Anesthesia Evaluation Vital Signs: Vital Signs Temp Pulse Resp BP Pulse Ox 05/04/20 10:55 97.9 F 85 18 133/64 99 05/04/20 10:41 78 18 129/53 L 99 05/04/20 10:35 89 18 134/62 98 05/04/20 10:30 68 16 136/59 L 97 05/04/20 10:25 97.8 F 82 16 121/61 96 05/04/20 08:19 97.1 F 71 18 132/59 L 98 Anesthesia: General Mental Status: Awake Pain Control: Satisfactory Nausea/Vomiting: None Hydration: Adequate Anesthesia-Related Issues: No Anes. Related Issues
== END 2020-05-04 12:00 | disposition home or self-care (01) ==
PROVIDERS: Nurse Practitioner; PCP Internal Medicine; Visit Provider Urology
PROC: 0TJB8ZZ Inspection of Bladder, Via Natural or Artificial Opening Endoscopic (ICD-10-PCS; CPT 52000; principal; 2020-05-04 09:30)
DX: N40.1 Benign prostatic hyperplasia with lower urinary tract symptoms (principal); R35.0 Frequency of micturition; R39.15 Urgency of urination; I11.0 Hypertensive heart disease with heart failure; I50.9 Heart failure, unspecified; Z95.810 Presence of automatic (implantable) cardiac defibrillator; E11.9 Type 2 diabetes mellitus without complications; I48.91 Unspecified atrial fibrillation; Z79.01 Long term (current) use of anticoagulants; J44.9 Chronic obstructive pulmonary disease, unspecified; Z79.51 Long term (current) use of inhaled steroids; Z79.899 Other long term (current) drug therapy; Z85.01 Personal history of malignant neoplasm of esophagus; Z87.891 Personal history of nicotine dependence
CPT/HCPCS: 52648; 36415; 80048; 82947; 85027; 85610; J1580; J1956; J3010

== ENCOUNTER → 2020-05-07 13:15 | Outpatient (BNVA) | payer MEDICARE, SELFPAY | PROVIDERS: PCP Internal Medicine; Visit Provider Urology | DX: Z76.89 Persons encountering health services in other specified circumstances (principal) ==

== ENCOUNTER → 2020-05-08 13:15 | Outpatient (BNVA) | payer MEDICARE, SELFPAY | PROVIDERS: PCP Internal Medicine; Referring Provider Internal Medicine; Visit Provider Urology | DX: N40.1 Benign prostatic hyperplasia with lower urinary tract symptoms (principal); N13.8 Other obstructive and reflux uropathy; R39.15 Urgency of urination; R30.0 Dysuria | CPT/HCPCS: 51700; 51798; 99212 ==

== ENCOUNTER 2020-05-09 00:30 | Emergency (ER) | payer MEDICARE, SELFPAY ==
[2020-05-09 00:33] VITALS: BP 000/00; PULSE 87; RESP 18; TEMP 36.4; O2SAT 100; BMI 19.2
--- NOTE | 2020-05-09 00:42 | ED_ITS ---
HPI - Male Genitourinary General Chief complaint: General Medical Stated complaint: PROSTATE ISSUES Time Seen by Provider: 05/09/20 00:33 Source: patient and old records reviewed Mode of arrival: ambulatory Limitations: no limitations History of Present Illness HPI Narrative: s/p 04/03 underwent TURP and catheter placement - catheter was removed on 05/[address] Granados's office - has not voided since MD Complaint: other (retention) Onset (ago): hour(s) (11 hours) Severity: similar to previous episodes Quality: aching Relieving factors: none Exacerbating factors: none Context: other (catheter removed yesterday at 3pm has not voided since) Associated symptoms: Reports urinary retention Related Data Home Medications Medication Instructions Recorded Confirmed Anoro Ellipta 1 puff PO DAILY 04/01/20 05/04/20 Entresto 1 tab PO BID 04/01/20 04/15/20 digoxin 125 mcg PO DAILY 04/01/20 04/15/20 ipratropium-albuterol 3 ml INHALATION QID PRN 04/01/20 04/15/20 metoprolol succinate 300 mg PO QPM 04/01/20 04/15/20 omeprazole 20 mg PO BID 04/01/20 05/04/20 tamsulosin 0.4 mg PO QAM 04/01/20 04/15/20 warfarin [Jantoven] 5 mg PO MOTUTHFRSA 04/01/20 04/15/20 warfarin [Jantoven] 7.5 mg PO SUWE 04/01/20 04/15/20 Previous Rx's Medication Instructions Recorded tramadol 50 mg PO Q6H PRN #7 tab 05/04/20 trimethoprim 100 mg PO Q12H 5 Days #10 tab 05/04/20 cefuroxime axetil 250 mg PO BID 7 Days #14 tab 05/09/20 Allergies Allergy/AdvReac Type Severity Reaction Status Date / Time No Known Allergies Allergy Unknown NONE Verified 04/06/20 08:49 Review of Systems Review of Systems: Constitutional : No Weight loss, No Fever, No Chills ENT/Mouth : No sore throat, No Rhinorrhea Eyes: No Swelling, No Redness Cardiovascular : No Chest Pain, No SOB, NoEdema Respiratory : No Cough, No Sputum, No Wheezing Gastrointestinal : no Nausea, no Vomiting, no Diarrhea, positive abdominal Pain, No Hematochezia, No Melena Genitourinary : No Dysuria, No Urinary Frequency, No Hematuria, positive retention Musculoskeletal : No joint pain, No Myalgias, No Joint Swelling Skin : No Skin Lesions, No rash Neuro : No Weakness, No Numbness, No Dizziness, No Headache Psych : No Anxiety/Panic, No Depression Heme/Lymph: No Bruising, No Lymphadenopathy Endocrine : No Polyuria, No Polydipsia All other systems reviewed and are negative. [facility] Past Medical History Attestation statement: The following information was validated with the patient. Medical History Atrial fibrillation (Unknown) BPH (benign prostatic hyperplasia) (Unknown) CHF (congestive heart failure) (Unknown) COPD (chronic obstructive pulmonary disease) (Unknown) Diabetes (Unknown) Esophageal cancer (Unknown) HTN (hypertension) (Unknown) Hx of cardiomyopathy Lab test negative for COVID-19 virus Pacemaker UTI (urinary tract infection) (Unknown) Surgical History AICD (automatic cardioverter/defibrillator) present (Unknown) H/O colonoscopy History of esophagectomy History of permanent cardiac pacemaker placement Hx of cardiac catheterization Hx of cataract surgery Hx of left inguinal hernia repair Hx of shoulder surgery Family History Family History Father No problems noted. Mother No problems noted. Social History Social History Household Members: Spouse Housing: House Alcohol intake: never Smoking Status: Former smoker Second Hand Smoke Exposure: No Use of substances other than those prescribed or required for medical reasons: No Advance Directives: No service: No Current occupational status: retired Physical Exam Vital Signs: Vital Signs: Last Vital Signs Temp 97.4 F 05/09/20 00:53 Pulse 67 05/09/20 00:53 Resp 18 05/09/20 00:53 BP 145/65 H 05/09/20 00:53 Pulse Ox 100 05/09/20 00:53 Body Mass Index 19.2 Appearance: Alert. Oriented X3. No acute distress. Eyes: Pupils equal, round and reactive to light. ENT: Pharynx normal. Neck: Normal inspection. Neck supple. CVS: Normal heart rate and rhythm. Pulses normal. Respiratory: No respiratory distress. Breath sounds normal. Abdomen: Soft and moder tenderness in suprapubic area Skin: Skin warm and dry. Normal skin color. Normal skin turgor. Extremities: No lower extremity edema. No calf ttp Neuro: Oriented X 3. No motor deficit. No sensory deficit. Course Course Course Narrative: successful placement of cath with > 1000cc in bladder cath pulled slightly and caused some hematuria but then flushed clear, stable for DC at this time, given catheter instructions MDM - Male Genitourinary MDM Narrative Medical decision making narrative: 85 yo male with mulitple medical problems s/p TURP on 05/04 and had cath removed yesterday at 3pm has not voided since - will need labs, UA, bernabe catheter placement, dispo per results and findings. Lab Data Result diagrams: 05/09/20 01:10 05/09/20 01:10 Labs: Lab Results 05/09/20 05/09/20 05/09/20 Range/Units 01:10 01:10 01:10 WBC 3.6 L (4.8-10.8) X10*3/uL RBC 3.23 L (4.60-5.80) X10*6/uL Hgb 10.8 L (14.0-18.0) g/dl Hct 33.6 L (42-52) % MCV 104.0 H (80-98) fL MCH 33.4 H (27.0-33.0) pg MCHC 32.1 (31.0-36.0) g/dl RDW 14.5 (11.0-16.0) % Plt Count 122 L D (160-400) X10*3/uL MPV 9.7 (9.4-12.4) fL Immature Gran % (Auto) 0.3 (0.0-0.4) % Neut % (Auto) 68.5 (45-73) % Lymph % (Auto) 17.7 L (20-40) % [place] % (Auto) 8.5 (2-11) % Eos % (Auto) 4.2 H (0-4) % Baso % (Auto) 0.8 (0-2) % Lymph # (Auto) 0.6 L (1.2-4.9) X10*3/uL [place] # (Auto) 0.3 (0.1-1.2) X10*3/uL Eos # (Auto) 0.2 (0.0-0.4) X10*3/uL Baso # (Auto) 0.0 (0.0-0.2) X10*3/uL Abs Immat Gran (auto) 0.01 (0.00-0.03) X10*3/uL Absolute Neuts (auto) 2.4 (2.0-8.3) X10*3/uL Absolute Nucleated RBC 0.000 (0.0-0.012) X10*3/uL Nucleated RBC % (auto) 0.0 (0.0-0.2) /100WBC PT 11.7 (10.8-13.0) SEC INR 1.0 (0.9-1.1) APTT 35.5 D (24.1-38.0) SEC Sodium 140 (135-145) mmol/L Potassium 3.8 (3.3-5.1) mmol/l Chloride 107 (96-108) mmol/L Carbon Dioxide 26 (22-29) mmol/L Anion Gap 11 L (12-20) BUN 26 H (9-16) mg/dL Creatinine 1.13 (0.5-1.4) mg/dL Estim Creat Clear Calc 45.1 Estimated GFR > 60 Random Glucose 114 (60-115) mg/dL Calcium 8.2 L (8.4-10.2) mg/dL Magnesium 2.2 (1.6-2.6) mg/dL Urine Color Urine Appearance Urine pH (5.0-8.0) Ur Specific [place] (1.005-1.025) Urine Protein (NEG-TRACE) MG/DL Urine Glucose (UA) (NEG) MG/DL Urine Ketones (NEG) MG/DL Urine Blood (NEG) Urine Nitrite (NEG) Ur Leukocyte Esterase (NEG) Urine RBC (0) /HPF Urine WBC (0-4) /HPF Ur Squamous Epith Cells /LPF Urine Bacteria /LPF 05/09/20 Range/Units 01:10 WBC (4.8-10.8) X10*3/uL RBC (4.60-5.80) X10*6/uL Hgb (14.0-18.0) g/dl Hct (42-52) % MCV (80-98) fL MCH (27.0-33.0) pg MCHC (31.0-36.0) g/dl RDW (11.0-16.0) % Plt Count (160-400) X10*3/uL MPV (9.4-12.4) fL Immature Gran % (Auto) (0.0-0.4) % Neut % (Auto) (45-73) % Lymph % (Auto) (20-40) % [place] % (Auto) (2-11) % Eos % (Auto) (0-4) % Baso % (Auto) (0-2) % Lymph # (Auto) (1.2-4.9) X10*3/uL [place] # (Auto) (0.1-1.2) X10*3/uL Eos # (Auto) (0.0-0.4) X10*3/uL Baso # (Auto) (0.0-0.2) X10*3/uL Abs Immat Gran (auto) (0.00-0.03) X10*3/uL Absolute Neuts (auto) (2.0-8.3) X10*3/uL Absolute Nucleated RBC (0.0-0.012) X10*3/uL Nucleated RBC % (auto) (0.0-0.2) /100WBC PT (10.8-13.0) SEC INR (0.9-1.1) APTT (24.1-38.0) SEC Sodium (135-145) mmol/L Potassium (3.3-5.1) mmol/l Chloride (96-108) mmol/L Carbon Dioxide (22-29) mmol/L Anion Gap (12-20) BUN (9-16) mg/dL Creatinine (0.5-1.4) mg/dL Estim Creat Clear Calc Estimated GFR Random Glucose (60-115) mg/dL Calcium (8.4-10.2) mg/dL Magnesium (1.6-2.6) mg/dL Urine Color YELLOW Urine Appearance CLOUDY Urine pH 7.0 (5.0-8.0) Ur Specific [place] 1.020 (1.005-1.025) Urine Protein 2+ H (NEG-TRACE) MG/DL Urine Glucose (UA) NEG (NEG) MG/DL Urine Ketones NEG (NEG) MG/DL Urine Blood 3+ H (NEG) Urine Nitrite NEG (NEG) Ur Leukocyte Esterase 3+ H (NEG) Urine RBC 30-49 H (0) /HPF Urine WBC TNTC H (0-4) /HPF Ur Squamous Epith Cells 1+ /LPF Urine Bacteria 2+ /LPF Discharge Plan Discharge Clinical Impression: Acute urinary retention, Bacterial UTI Patient Disposition: Home, Self-Care Instructions: Urinary Retention in Men (ED), Bernabe Catheter Placement and Care (ED) Additional Instructions: return to ED for any worsening symptoms or concerns Prescriptions: New cefuroxime axetil 250 mg tablet 250 mg PO BID 7 Days Qty: 14 RF: 0 No Action omeprazole 20 mg capsule,delayed release(DR/EC) 20 mg PO BID RF: 0 Anoro Ellipta 62.5-25 mcg/actuation blister with device 1 puff PO DAILY RF: 0 Entresto 24-26 mg tablet 1 tab PO BID RF: 0 ipratropium-albuterol 0.5 mg-3 mg(2.5 mg base)/3 mL Solution For Nebulization 3 ml INHALATION QID PRN (Reason: Shortness Of Breath) RF: 0 warfarin [Jantoven] 7.5 mg Tablet 7.5 mg PO SUWE RF: 0 metoprolol succinate 200 mg Tablet Extended Release 24 Hr 300 mg PO QPM RF: 0 tamsulosin 0.4 mg Capsule 0.4 mg PO QAM RF: 0 warfarin [Jantoven] 5 mg Tablet 5 mg PO MOTUTHFRSA RF: 0 digoxin 125 mcg (0.125 mg) Tablet 125 mcg PO DAILY RF: 0 tramadol 50 mg tablet 50 mg PO Q6H PRN (Reason: pain (scale score 1-3)) Qty: 7 RF: 0 trimethoprim 100 mg tablet 100 mg PO Q12H 5 Days Qty: 10 RF: 0 Referrals: Antwan Granados MD [Physician] - 3 days (call Monday)
[2020-05-09 00:53] VITALS: BP 145/65; PULSE 67; RESP 18; TEMP 36.3; O2SAT 100
[2020-05-09 01:20] LABS: Basophils Percent Auto 0.8 % (0-2); Eosinophils Absolute Auto 0.2 X10*3/uL (0.0-0.4); Eosinophils Percent Auto 4.2 % (0-4); Hematocrit 33.6 % (42-52); Hemoglobin 10.8 g/dl (14.0-18.0); Imm Gran Abs Auto 0.01 X10*3/uL (0.00-0.03); Imm Gran Pct Auto 0.3 % (0.0-0.4); Lymphocytes Absolute Auto 0.6 X10*3/uL (1.2-4.9); Lymphocytes Percent Auto 17.7 % (20-40); Mean Corpuscular HGB Conc 32.1 g/dl (31.0-36.0); Mean Corpuscular Hemoglobin 33.4 pg (27.0-33.0); Mean Platelet Volume 9.7 fL (9.4-12.4); Monocytes Absolute Auto 0.3 X10*3/uL (0.1-1.2); Monocytes Percent Auto 8.5 % (2-11); Neutrophils Absolute Auto 2.4 X10*3/uL (2.0-8.3); Neutrophils Percent Auto 68.5 % (45-73); Platelet Count 122 X10*3/uL (160-400); Red Blood Count 3.23 X10*6/uL (4.60-5.80); Red Cell Distribution Width 14.5 % (11.0-16.0); SCAN SMEAR FLAG 1; White Blood Count 3.6 X10*3/uL (4.8-10.8)
[2020-05-09 01:22] LABS: MANUAL DIFF FLAG NO
[2020-05-09 01:26] LABS: Glucose Urine UA NEG (NEG); Leukocyte Esterase Urine 3+ (NEG); Nitrite Urine NEG (NEG); Urine Blood 3+ (NEG); Urine Ketones NEG (NEG); Urine Protein 2+ MG/DL (NEG-TRACE)
[2020-05-09 01:27] LABS: Appearance Urine CLOUDY; Color Urine YELLOW
[2020-05-09 01:35] LABS: Bacteria Urine 2+ /LPF; RBC Urine 30-49 /HPF (0); Squamous Epithelial Cell Urine 1+ /LPF; WBC Urine TNTC /HPF (0-4)
[2020-05-09 01:52] LABS: Anion Gap 11 (12-20); Blood Urea Nitrogen 26 mg/dL (9-16); Calcium 8.2 mg/dL (8.4-10.2); Carbon Dioxide 26 mmol/L (22-29); Chloride 107 mmol/L (96-108); Creatinine Clr Calc Pharmacy 45.1; Estimated Glomerular Filt Rate > 60; Glucose Random 114 mg/dL (60-115); Magnesium 2.2 mg/dL (1.6-2.6); Potassium 3.8 mmol/l (3.3-5.1); Sodium 140 mmol/L (135-145)
[2020-05-09 01:54] LABS: Prothrombin Time 11.7 SEC (10.8-13.0)
[2020-05-09 01:57] LABS: Partial Thromboplastin Time 35.5 SEC (24.1-38.0)
[2020-05-09 02:00] VITALS: BP 133/64; PULSE 71; RESP 18; TEMP 36.4; O2SAT 100
--- NOTE | 2020-05-09 20:36 | ED.GENADULT ---
HPI - General Adult General Chief complaint: General Medical Stated complaint: PROSTATE ISSUES Time Seen by Provider: 05/09/20 00:33 Source: patient and old records reviewed Mode of arrival: ambulatory Limitations: no limitations Related Data Home Medications Medication Instructions Recorded Confirmed Anoro Ellipta 1 puff PO DAILY 04/01/20 05/04/20 Entresto 1 tab PO BID 04/01/20 04/15/20 digoxin 125 mcg PO DAILY 04/01/20 04/15/20 ipratropium-albuterol 3 ml INHALATION QID PRN 04/01/20 04/15/20 metoprolol succinate 300 mg PO QPM 04/01/20 04/15/20 omeprazole 20 mg PO BID 04/01/20 05/04/20 tamsulosin 0.4 mg PO QAM 04/01/20 04/15/20 warfarin [Jantoven] 5 mg PO MOTUTHFRSA 04/01/20 04/15/20 warfarin [Jantoven] 7.5 mg PO SUWE 04/01/20 04/15/20 Previous Rx's Medication Instructions Recorded tramadol 50 mg PO Q6H PRN #7 tab 05/04/20 trimethoprim 100 mg PO Q12H 5 Days #10 tab 05/04/20 cefuroxime axetil 250 mg PO BID 7 Days #14 tab 05/09/20 Allergies Allergy/AdvReac Type Severity Reaction Status Date / Time No Known Allergies Allergy Unknown NONE Verified 04/06/20 08:49 [facility] Past Medical History Medical History Atrial fibrillation (Unknown) BPH (benign prostatic hyperplasia) (Unknown) CHF (congestive heart failure) (Unknown) COPD (chronic obstructive pulmonary disease) (Unknown) Diabetes (Unknown) Esophageal cancer (Unknown) HTN (hypertension) (Unknown) Hx of cardiomyopathy Lab test negative for COVID-19 virus Pacemaker UTI (urinary tract infection) (Unknown) Surgical History AICD (automatic cardioverter/defibrillator) present (Unknown) H/O colonoscopy History of esophagectomy History of permanent cardiac pacemaker placement Hx of cardiac catheterization Hx of cataract surgery Hx of left inguinal hernia repair Hx of shoulder surgery Family History Family History Father No problems noted. Mother No problems noted. Social History Social History Household Members: Spouse Housing: House Alcohol intake: never Smoking Status: Former smoker Second Hand Smoke Exposure: No Use of substances other than those prescribed or required for medical reasons: No Advance Directives: No service: No Current occupational status: retired Physical Exam Vital Signs: Vital Signs: Last Vital Signs Temp 97.5 F 05/09/20 02:00 Pulse 71 05/09/20 02:00 Resp 18 05/09/20 02:00 BP 133/64 05/09/20 02:00 Pulse Ox 100 05/09/20 02:00 Body Mass Index 19.2 Course Course Course Narrative: At this time call from lab with positive blood culture 1. Of 2 gram-positive I did call the patient advised to come to emergency room for re-evaluation. Medical Decision Making Lab Data Result diagrams: 05/09/20 01:10 05/09/20 01:10 Labs: Lab Results 05/09/20 05/09/20 05/09/20 Range/Units 01:10 01:10 01:10 WBC 3.6 L (4.8-10.8) X10*3/uL RBC 3.23 L (4.60-5.80) X10*6/uL Hgb 10.8 L (14.0-18.0) g/dl Hct 33.6 L (42-52) % MCV 104.0 H (80-98) fL MCH 33.4 H (27.0-33.0) pg MCHC 32.1 (31.0-36.0) g/dl RDW 14.5 (11.0-16.0) % Plt Count 122 L D (160-400) X10*3/uL MPV 9.7 (9.4-12.4) fL Immature Gran % (Auto) 0.3 (0.0-0.4) % Neut % (Auto) 68.5 (45-73) % Lymph % (Auto) 17.7 L (20-40) % [place] % (Auto) 8.5 (2-11) % Eos % (Auto) 4.2 H (0-4) % Baso % (Auto) 0.8 (0-2) % Lymph # (Auto) 0.6 L (1.2-4.9) X10*3/uL [place] # (Auto) 0.3 (0.1-1.2) X10*3/uL Eos # (Auto) 0.2 (0.0-0.4) X10*3/uL Baso # (Auto) 0.0 (0.0-0.2) X10*3/uL Abs Immat Gran (auto) 0.01 (0.00-0.03) X10*3/uL Absolute Neuts (auto) 2.4 (2.0-8.3) X10*3/uL Absolute Nucleated RBC 0.000 (0.0-0.012) X10*3/uL Nucleated RBC % (auto) 0.0 (0.0-0.2) /100WBC PT 11.7 (10.8-13.0) SEC INR 1.0 (0.9-1.1) APTT 35.5 D (24.1-38.0) SEC Sodium 140 (135-145) mmol/L Potassium 3.8 (3.3-5.1) mmol/l Chloride 107 (96-108) mmol/L Carbon Dioxide 26 (22-29) mmol/L Anion Gap 11 L (12-20) BUN 26 H (9-16) mg/dL Creatinine 1.13 (0.5-1.4) mg/dL Estim Creat Clear Calc 45.1 Estimated GFR > 60 Random Glucose 114 (60-115) mg/dL Calcium 8.2 L (8.4-10.2) mg/dL Magnesium 2.2 (1.6-2.6) mg/dL Urine Color Urine Appearance Urine pH (5.0-8.0) Ur Specific [place] (1.005-1.025) Urine Protein (NEG-TRACE) MG/DL Urine Glucose (UA) (NEG) MG/DL Urine Ketones (NEG) MG/DL Urine Blood (NEG) Urine Nitrite (NEG) Ur Leukocyte Esterase (NEG) Urine RBC (0) /HPF Urine WBC (0-4) /HPF Ur Squamous Epith Cells /LPF Urine Bacteria /LPF 05/09/20 Range/Units 01:10 WBC (4.8-10.8) X10*3/uL RBC (4.60-5.80) X10*6/uL Hgb (14.0-18.0) g/dl Hct (42-52) % MCV (80-98) fL MCH (27.0-33.0) pg MCHC (31.0-36.0) g/dl RDW (11.0-16.0) % Plt Count (160-400) X10*3/uL MPV (9.4-12.4) fL Immature Gran % (Auto) (0.0-0.4) % Neut % (Auto) (45-73) % Lymph % (Auto) (20-40) % [place] % (Auto) (2-11) % Eos % (Auto) (0-4) % Baso % (Auto) (0-2) % Lymph # (Auto) (1.2-4.9) X10*3/uL [place] # (Auto) (0.1-1.2) X10*3/uL Eos # (Auto) (0.0-0.4) X10*3/uL Baso # (Auto) (0.0-0.2) X10*3/uL Abs Immat Gran (auto) (0.00-0.03) X10*3/uL Absolute Neuts (auto) (2.0-8.3) X10*3/uL Absolute Nucleated RBC (0.0-0.012) X10*3/uL Nucleated RBC % (auto) (0.0-0.2) /100WBC PT (10.8-13.0) SEC INR (0.9-1.1) APTT (24.1-38.0) SEC Sodium (135-145) mmol/L Potassium (3.3-5.1) mmol/l Chloride (96-108) mmol/L Carbon Dioxide (22-29) mmol/L Anion Gap (12-20) BUN (9-16) mg/dL Creatinine (0.5-1.4) mg/dL Estim Creat Clear Calc Estimated GFR Random Glucose (60-115) mg/dL Calcium (8.4-10.2) mg/dL Magnesium (1.6-2.6) mg/dL Urine Color YELLOW Urine Appearance CLOUDY Urine pH 7.0 (5.0-8.0) Ur Specific [place] 1.020 (1.005-1.025) Urine Protein 2+ H (NEG-TRACE) MG/DL Urine Glucose (UA) NEG (NEG) MG/DL Urine Ketones NEG (NEG) MG/DL Urine Blood 3+ H (NEG) Urine Nitrite NEG (NEG) Ur Leukocyte Esterase 3+ H (NEG) Urine RBC 30-49 H (0) /HPF Urine WBC TNTC H (0-4) /HPF Ur Squamous Epith Cells 1+ /LPF Urine Bacteria 2+ /LPF Discharge Plan Discharge Clinical Impression: Acute urinary retention, Bacterial UTI Patient Disposition: Home, Self-Care Instructions: Urinary Retention in Men (ED), Navarro Catheter Placement and Care (ED) Additional Instructions: return to ED for any worsening symptoms or concerns Prescriptions: New cefuroxime axetil 250 mg tablet 250 mg PO BID 7 Days Qty: 14 RF: 0 No Action omeprazole 20 mg capsule,delayed release(DR/EC) 20 mg PO BID RF: 0 Anoro Ellipta 62.5-25 mcg/actuation blister with device 1 puff PO DAILY RF: 0 Entresto 24-26 mg tablet 1 tab PO BID RF: 0 ipratropium-albuterol 0.5 mg-3 mg(2.5 mg base)/3 mL Solution For Nebulization 3 ml INHALATION QID PRN (Reason: Shortness Of Breath) RF: 0 warfarin [Jantoven] 7.5 mg Tablet 7.5 mg PO SUWE RF: 0 metoprolol succinate 200 mg Tablet Extended Release 24 Hr 300 mg PO QPM RF: 0 tamsulosin 0.4 mg Capsule 0.4 mg PO QAM RF: 0 warfarin [Jantoven] 5 mg Tablet 5 mg PO MOTUTHFRSA RF: 0 digoxin 125 mcg (0.125 mg) Tablet 125 mcg PO DAILY RF: 0 tramadol 50 mg tablet 50 mg PO Q6H PRN (Reason: pain (scale score 1-3)) Qty: 7 RF: 0 trimethoprim 100 mg tablet 100 mg PO Q12H 5 Days Qty: 10 RF: 0 Referrals: Antwan Granados MD [Physician] - 3 days (call Monday) Interventions: ED Discharge Assessment Last Done: 05/09/20 02:30 Discharge Date/Time: 05/09/20 02:30
--- NOTE | 2020-05-10 12:01 | PC.NURSE ---
recieved call from micro about + blood culture, and urine. Pt was seen and reevaluated by Dr Bess. Treated with PO antibiotics.
== END 2020-05-09 02:30 | disposition home or self-care (01) ==
PROVIDERS: Emergency Provider Emergency Medicine; PCP Internal Medicine
DX: R33.9 Retention of urine, unspecified (principal); N39.0 Urinary tract infection, site not specified; Z87.891 Personal history of nicotine dependence; Z79.899 Other long term (current) drug therapy; Z20.828 Contact with and (suspected) exposure to other viral communicable diseases
CPT/HCPCS: 36415; 80048; 81001; 83735; 85025; 85610; 85730; 87040; 87077; 87086; 87088; 87185; 87186; 99284

== ENCOUNTER 2020-05-09 21:05 | Emergency (ER) | payer MEDICARE, SELFPAY ==
[2020-05-09 21:07] VITALS: BP 126/57; PULSE 72; RESP 18; TEMP 36.1; O2SAT 96; BMI 19.0
--- NOTE | 2020-05-09 21:21 | ED.RECABL ---
HPI - Recheck/Abnormal Lab/Rx General Chief Complaint: Recheck/Abnormal Lab/Rx Stated Complaint: abnormal labs Time Seen by Provider: 05/09/20 21:11 Source: patient and old records reviewed Mode of arrival: ambulatory Limitations: no limitations History of Present Illness complaint: abnormal lab Initial visit (ago): hour(s) (after midnight today) Initial visit for: other (urinary retention) Returns today for: needs IV antibiotics Symptoms since prior visit: no new symptoms Context: called for abnormal lab result Associated symptoms: none Treatments prior to arrival: given antibiotics on (started on ceftin 250mg BID) Related Data Home Medications Medication Instructions Recorded Confirmed Anoro Ellipta 1 puff PO DAILY 04/01/20 05/04/20 Entresto 1 tab PO BID 04/01/20 04/15/20 digoxin 125 mcg PO DAILY 04/01/20 04/15/20 ipratropium-albuterol 3 ml INHALATION QID PRN 04/01/20 04/15/20 metoprolol succinate 300 mg PO QPM 04/01/20 04/15/20 omeprazole 20 mg PO BID 04/01/20 05/04/20 tamsulosin 0.4 mg PO QAM 04/01/20 04/15/20 warfarin [Jantoven] 5 mg PO MOTUTHFRSA 04/01/20 04/15/20 warfarin [Jantoven] 7.5 mg PO SUWE 04/01/20 04/15/20 Previous Rx's Medication Instructions Recorded tramadol 50 mg PO Q6H PRN #7 tab 05/04/20 trimethoprim 100 mg PO Q12H 5 Days #10 tab 05/04/20 ampicillin 500 mg PO TID 7 Days #21 cap 05/09/20 cefuroxime axetil 250 mg PO BID 7 Days #14 tab 05/09/20 Allergies Allergy/AdvReac Type Severity Reaction Status Date / Time No Known Allergies Allergy Unknown NONE Verified 04/06/20 08:49 Review of Systems Review of Systems: Constitutional : No Weight loss, No Fever, No Chills ENT/Mouth : No sore throat, No Rhinorrhea Eyes: No Swelling, No Redness Cardiovascular : No Chest Pain, No SOB, NoEdema Respiratory : No Cough, No Sputum, No Wheezing Gastrointestinal :no Nausea, no Vomiting, no Diarrhea, no abdominal Pain, No Hematochezia, No Melena Genitourinary : No Dysuria, No Urinary Frequency, mild Hematuria, No Urgency Musculoskeletal : No joint pain, No Myalgias, No Joint Swelling Skin : No Skin Lesions, No rash Neuro : No Weakness, No Numbness, No Dizziness, No Headache Psych : No Anxiety/Panic, No Depression All other systems reviewed and are negative. [facility] Past Medical History Attestation statement: The following information was validated with the patient. Medical History Atrial fibrillation (Unknown) BPH (benign prostatic hyperplasia) (Unknown) CHF (congestive heart failure) (Unknown) COPD (chronic obstructive pulmonary disease) (Unknown) Diabetes (Unknown) Esophageal cancer (Unknown) HTN (hypertension) (Unknown) Hx of cardiomyopathy Lab test negative for COVID-19 virus Pacemaker UTI (urinary tract infection) (Unknown) Surgical History AICD (automatic cardioverter/defibrillator) present (Unknown) H/O colonoscopy History of esophagectomy History of permanent cardiac pacemaker placement Hx of cardiac catheterization Hx of cataract surgery Hx of left inguinal hernia repair Hx of shoulder surgery Family History Family History Father No problems noted. Mother No problems noted. Social History Social History Household Members: Spouse Housing: House Alcohol intake: never Smoking Status: Former smoker Second Hand Smoke Exposure: No Advance Directives: No Advance Directives Information Provided: Yes service: No Current occupational status: retired Physical Exam Vital Signs: Vital Signs: Last Vital Signs Temp 96.9 F 05/09/20 21:07 Pulse 69 05/09/20 21:38 Resp 16 05/09/20 21:38 BP 134/58 L 05/09/20 21:38 Pulse Ox 97 05/09/20 21:38 Body Mass Index 19.0 Appearance: Alert. Oriented X3. No acute distress. Eyes: Pupils equal, round and reactive to light. ENT: Pharynx normal. Neck: Normal inspection. Neck supple. CVS: Normal heart rate and rhythm. Pulses normal. Respiratory: No respiratory distress. Breath sounds normal. Abdomen: Soft and non-tender. Skin: Skin warm and dry. Normal skin color. Normal skin turgor. Extremities: No lower extremity edema. No calf ttp Neuro: Oriented X 3. No motor deficit. No sensory deficit. 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 Lab Data Result diagrams: 05/09/20 21:23 05/09/20 22:07 Labs: Lab Results 05/09/20 05/09/20 05/09/20 Range/Units 21:23 21:23 21:23 WBC 3.9 L (4.8-10.8) X10*3/uL RBC 2.89 L (4.60-5.80) X10*6/uL Hgb 9.7 L (14.0-18.0) g/dl Hct 30.2 L (42-52) % MCV 104.5 H (80-98) fL MCH 33.6 H (27.0-33.0) pg MCHC 32.1 (31.0-36.0) g/dl RDW 14.8 (11.0-16.0) % Plt Count 129 L (160-400) X10*3/uL MPV 9.8 (9.4-12.4) fL Immature Gran % (Auto) 0.0 (0.0-0.4) % Neut % (Auto) 71.6 (45-73) % Lymph % (Auto) 17.0 L (20-40) % [place] % (Auto) 7.0 (2-11) % Eos % (Auto) 3.6 (0-4) % Baso % (Auto) 0.8 (0-2) % Lymph # (Auto) 0.7 L (1.2-4.9) X10*3/uL [place] # (Auto) 0.3 (0.1-1.2) X10*3/uL Eos # (Auto) 0.1 (0.0-0.4) X10*3/uL Baso # (Auto) 0.0 (0.0-0.2) X10*3/uL Abs Immat Gran (auto) 0.00 (0.00-0.03) X10*3/uL Absolute Neuts (auto) 2.8 (2.0-8.3) X10*3/uL Absolute Nucleated RBC 0.000 (0.0-0.012) X10*3/uL Nucleated RBC % (auto) 0.0 (0.0-0.2) /100WBC Smear Tech's Comments VERIFIED PT 12.0 (10.8-13.0) SEC INR 1.0 (0.9-1.1) APTT 31.1 (24.1-38.0) SEC Sodium Cancelled Potassium Cancelled Chloride Cancelled Carbon Dioxide Cancelled Anion Gap Cancelled BUN Cancelled Creatinine Cancelled Estim Creat Clear Calc Cancelled Estimated GFR Cancelled Random Glucose Cancelled Lactic Acid (0.5-2.0) mmol/L Calcium Cancelled 05/09/20 Range/Units 21:23 WBC (4.8-10.8) X10*3/uL RBC (4.60-5.80) X10*6/uL Hgb (14.0-18.0) g/dl Hct (42-52) % MCV (80-98) fL MCH (27.0-33.0) pg MCHC (31.0-36.0) g/dl RDW (11.0-16.0) % Plt Count (160-400) X10*3/uL MPV (9.4-12.4) fL Immature Gran % (Auto) (0.0-0.4) % Neut % (Auto) (45-73) % Lymph % (Auto) (20-40) % [place] % (Auto) (2-11) % Eos % (Auto) (0-4) % Baso % (Auto) (0-2) % Lymph # (Auto) (1.2-4.9) X10*3/uL [place] # (Auto) (0.1-1.2) X10*3/uL Eos # (Auto) (0.0-0.4) X10*3/uL Baso # (Auto) (0.0-0.2) X10*3/uL Abs Immat Gran (auto) (0.00-0.03) X10*3/uL Absolute Neuts (auto) (2.0-8.3) X10*3/uL Absolute Nucleated RBC (0.0-0.012) X10*3/uL Nucleated RBC % (auto) (0.0-0.2) /100WBC Smear Tech's Comments PT (10.8-13.0) SEC INR (0.9-1.1) APTT (24.1-38.0) SEC Sodium Potassium Chloride Carbon Dioxide Anion Gap BUN Creatinine Estim Creat Clear Calc Estimated GFR Random Glucose Lactic Acid 2.1 H* (0.5-2.0) mmol/L Calcium Discharge Plan Discharge Clinical Impression: Acute UTI, Bacteremia Patient Disposition: Home, Self-Care Instructions: Bacteremia (ED), Urinary Tract Infection in Older Adults (ED) Additional Instructions: return to ED for any worsening symptoms or concerns you were offered admission but refused, you could have an infection in your blood stream, we repeated cultures if positive we will call you, come back at any time for IV antibiotics, we do not want this to turn into sepsis PLEASE START TAKING THIS NEW ANTIBIOTIC INSTEAD OF THE CEFTIN (CEFUROXIME) IT IS BETTER FOR YOUR INFECTION HISTORY Prescriptions: New ampicillin 500 mg capsule 500 mg PO TID 7 Days Qty: 21 RF: 0 No Action omeprazole 20 mg capsule,delayed release(DR/EC) 20 mg PO BID RF: 0 Anoro Ellipta 62.5-25 mcg/actuation blister with device 1 puff PO DAILY RF: 0 Entresto 24-26 mg tablet 1 tab PO BID RF: 0 ipratropium-albuterol 0.5 mg-3 mg(2.5 mg base)/3 mL Solution For Nebulization 3 ml INHALATION QID PRN (Reason: Shortness Of Breath) RF: 0 warfarin [Jantoven] 7.5 mg Tablet 7.5 mg PO SUWE RF: 0 metoprolol succinate 200 mg Tablet Extended Release 24 Hr 300 mg PO QPM RF: 0 tamsulosin 0.4 mg Capsule 0.4 mg PO QAM RF: 0 warfarin [Jantoven] 5 mg Tablet 5 mg PO MOTUTHFRSA RF: 0 digoxin 125 mcg (0.125 mg) Tablet 125 mcg PO DAILY RF: 0 tramadol 50 mg tablet 50 mg PO Q6H PRN (Reason: pain (scale score 1-3)) Qty: 7 RF: 0 trimethoprim 100 mg tablet 100 mg PO Q12H 5 Days Qty: 10 RF: 0 cefuroxime axetil 250 mg tablet 250 mg PO BID 7 Days Qty: 14 RF: 0 Referrals: Sam Ruffin MD [Primary Care Provider] - 1 day
--- NOTE | 2020-05-09 21:34 | PC.NURSE ---
IV established, labs and BCX obtained and sent for analysis. MD at bedside for primary eval. Pt refusing admission at this time, per MD, cancel Covid swab. Zosyn infusing per EMAR. Continue to monitor.
[2020-05-09 21:37] LABS: Basophils Percent Auto 0.8 % (0-2); Eosinophils Absolute Auto 0.1 X10*3/uL (0.0-0.4); Eosinophils Percent Auto 3.6 % (0-4); Hematocrit 30.2 % (42-52); Hemoglobin 9.7 g/dl (14.0-18.0); Lymphocytes Absolute Auto 0.7 X10*3/uL (1.2-4.9); MANUAL DIFF FLAG SCAN; Mean Corpuscular HGB Conc 32.1 g/dl (31.0-36.0); Mean Corpuscular Hemoglobin 33.6 pg (27.0-33.0); Mean Corpuscular Volume 104.5 fL (80-98); Mean Platelet Volume 9.8 fL (9.4-12.4); Monocytes Absolute Auto 0.3 X10*3/uL (0.1-1.2); Neutrophils Absolute Auto 2.8 X10*3/uL (2.0-8.3); Neutrophils Percent Auto 71.6 % (45-73); Platelet Count 129 X10*3/uL (160-400); Red Blood Count 2.89 X10*6/uL (4.60-5.80); Red Cell Distribution Width 14.8 % (11.0-16.0); SCAN SMEAR FLAG 1; White Blood Count 3.9 X10*3/uL (4.8-10.8)
[2020-05-09] MEDS: Piperacillin Sodium/Tazobactam 3.375 GM in 0.9 % Sodium Chloride 50 ML IV (21:37)
[2020-05-09 21:38] VITALS: BP 134/58; PULSE 69; RESP 16; O2SAT 97
[2020-05-09 21:39] LABS: SLIDE REVIEW VERIFIED
[2020-05-09 21:51] LABS: Partial Thromboplastin Time 31.1 SEC (24.1-38.0)
--- NOTE | 2020-05-09 22:08 | PC.NURSE ---
Labs redrawn and sent. Pt requesting warm blankets. Awaiting results of labwork.
[2020-05-09 22:22] LABS: Lactic Acid 2.1 mmol/L (0.5-2.0)
[2020-05-09 22:44] LABS: Anion Gap 12 (12-20); Blood Urea Nitrogen 23 mg/dL (9-16); Calcium 7.9 mg/dL (8.4-10.2); Carbon Dioxide 23 mmol/L (22-29); Chloride 110 mmol/L (96-108); Creatinine Clr Calc Pharmacy 46.9; Estimated Glomerular Filt Rate > 60; Glucose Random 116 mg/dL (60-115); Sodium 141 mmol/L (135-145)
[2020-05-09 22:52] VITALS: BP 112/49; PULSE 70; RESP 16; TEMP 36.8
[2020-05-09] MEDS: 0.9 % Sodium Chloride 500 ML IV (22:52)
[2020-05-09 23:36] LABS: Reflex Lactate? Lactic Acid Added
--- NOTE | 2020-05-09 23:44 | PC.NURSE ---
Repeat lactic obtained and sent.
[2020-05-10 00:15] LABS: ~Lactic Acid-LAB USE ONLY 1.1 mmol/L (0.5-2.0)
[2020-05-10 00:19] VITALS: BP 119/52; PULSE 70; RESP 16
== END 2020-05-10 00:36 | disposition home or self-care (01) ==
PROVIDERS: Emergency Provider Emergency Medicine; PCP Internal Medicine
DX: N39.0 Urinary tract infection, site not specified (principal); R78.81 Bacteremia; R79.89 Other specified abnormal findings of blood chemistry; Z79.899 Other long term (current) drug therapy
CPT/HCPCS: 36415; 80048; 81001; 83605; 83735; 85025; 85610; 85730; 87040; 87077; 87086; 87088; 87186; 96361; 96365; 99284; J2543

== ENCOUNTER → 2020-05-19 14:06 | Outpatient (BNVA) | payer MEDICARE, SELFPAY | PROVIDERS: Visit Provider Urology | DX: N40.1 Benign prostatic hyperplasia with lower urinary tract symptoms (principal); N13.8 Other obstructive and reflux uropathy; I10 Essential (primary) hypertension; Z87.891 Personal history of nicotine dependence | CPT/HCPCS: 99212 ==

== ENCOUNTER 2020-05-20 09:52 | Emergency (ER) | payer MEDICARE, SELFPAY ==
[2020-05-20 09:55] VITALS: BP 140/68; PULSE 70; RESP 18; TEMP 36.7; O2SAT 100; BMI 19.0
--- NOTE | 2020-05-20 10:14 | ED_ITS ---
HPI - Male Genitourinary General Chief complaint: Urogenital-Male Stated complaint: urinary problem Time Seen by Provider: 05/20/20 10:14 Source: patient Mode of arrival: ambulatory Limitations: no limitations History of Present Illness HPI Narrative: Patient with prostate problems and surgery over the past month, had bernabe removed 18 hours ago. Had small dribbles but eventually was able to have a good urination MD Complaint: dysuria Onset (ago): day(s) Duration: intermittent Quality: burning Related Data Home Medications Medication Instructions Recorded Confirmed Anoro Ellipta 1 puff PO DAILY 04/01/20 05/04/20 Entresto 1 tab PO BID 04/01/20 04/15/20 digoxin 125 mcg PO DAILY 04/01/20 04/15/20 ipratropium-albuterol 3 ml INHALATION QID PRN 04/01/20 04/15/20 metoprolol succinate 300 mg PO QPM 04/01/20 04/15/20 omeprazole 20 mg PO BID 04/01/20 05/04/20 tamsulosin 0.4 mg PO QAM 04/01/20 04/15/20 warfarin [Jantoven] 5 mg PO MOTUTHFRSA 04/01/20 04/15/20 warfarin [Jantoven] 7.5 mg PO SUWE 04/01/20 04/15/20 Previous Rx's Medication Instructions Recorded tramadol 50 mg PO Q6H PRN #7 tab 05/04/20 trimethoprim 100 mg PO Q12H 5 Days #10 tab 05/04/20 ampicillin 500 mg PO TID 7 Days #21 cap 05/09/20 cefuroxime axetil 250 mg PO BID 7 Days #14 tab 05/09/20 cephalexin [Keflex] 500 mg PO QID #28 cap 05/20/20 Allergies Allergy/AdvReac Type Severity Reaction Status Date / Time No Known Allergies Allergy Unknown NONE Verified 04/06/20 08:49 Review of Systems Constitutional: Constitutional: Reports no additional constitutional complaints Eyes: Eyes: Reports no additional eye complaints ENT: Denies dizziness Cardiovascular: Cardiovascular: Reports no additional cardiovascular complaints Respiratory: Respiratory: Reports as per HPI Gastrointestinal: Gastrointestinal: Reports no additional gastrointestinal complaints Musculoskeletal: Musculoskeletal: Reports no additional musculoskeletal complaints Integumentary/Breasts: Skin/Breast: Denies rash Neurologic: Reports system reviewed and no additional complaints, except as documented, Denies dizziness and Denies Sensory deficit (Neuro) Psychiatric: Psychiatric: Denies anxiety [facility] Past Medical History Medical History Atrial fibrillation (Unknown) BPH (benign prostatic hyperplasia) (Unknown) CHF (congestive heart failure) (Unknown) COPD (chronic obstructive pulmonary disease) (Unknown) Diabetes (Unknown) Esophageal cancer (Unknown) HTN (hypertension) (Unknown) Hx of cardiomyopathy Lab test negative for COVID-19 virus Pacemaker UTI (urinary tract infection) (Unknown) Surgical History AICD (automatic cardioverter/defibrillator) present (Unknown) H/O colonoscopy History of esophagectomy History of permanent cardiac pacemaker placement Hx of cardiac catheterization Hx of cataract surgery Hx of left inguinal hernia repair Hx of shoulder surgery Family History Family History Father No problems noted. Mother No problems noted. Social History Social History Household Members: Spouse Housing: House Alcohol intake: never Smoking Status: Former smoker Second Hand Smoke Exposure: No Advance Directives: No Advance Directives Information Provided: No service: No Current occupational status: retired Physical Exam Vital Signs: Vital Signs: Last Vital Signs Temp 97.7 F 05/20/20 10:16 Pulse 71 05/20/20 10:16 Resp 17 05/20/20 10:16 BP 144/61 H 05/20/20 10:16 Pulse Ox 100 05/20/20 10:16 Body Mass Index 19.0 Const: Other: elderly male looking comfortable Nutritional Appearance: thin Orientation/consciousness: oriented to person and patient oriented x3 Limitations: no limitations HENMT: Head: Yes normal to inspection Ears: external ears normal General nose exam: Normal external nose present Mouth: Normal oral and palatal mucosa present and oropharynx normal Throat: Yes posterior oropharynx normal Eyes: General: appearance normal, both eyes and all related structures Neck: Other: supple Neck: Yes normal visual inspection Chest: Chest palpation & inspection: normal inspection of the chest Resp: Auscultation: clear to auscultation bilaterally Cardio: Jugular venous distension: no JVD Rate: regular rate Rhythm: regular rhythm Heart sounds: S1 normal heart sound present and S2 normal heart sound present GI: Inspection: Yes normal to inspection Palpation (GI): Soft to palpation, nontender, No hepatosplenomegaly present and Bladder palpation abnormal (hard and distended) Auscultation: normal bowel sounds : General: Yes Bladder palpation abnormal (hard and distended) and Yes no CVA tenderness Back/Spine/Pelvis: Back: no CVA tenderness Skin: General skin exam: no rashes or lesions noted Neuro: General: oriented to person and patient oriented x3 Cranial nerves: Yes CN's II-XII intact bilaterally Motor exam (neuro): 5/5 motor strength present throughout Sensory Exam: No Sensory deficit (Neuro) Extrem: General: Yes normal to inspection Psych: Appearance: grossly normal Course Course Course Narrative: bladder scan 916ml will have he patient try and urinate Reevaluation(s) Reevaluation #1: unable to completely void Time: 11:10 Reevaluation #2: bernabe put out 1000cc Time: 11:47 MDM - Male Genitourinary MDM Narrative Medical decision making narrative: urinary retention with too numerous WBC will start keflex Lab Data Labs: Lab Results 05/20/20 Range/Units 10:39 Urine Color YELLOW Urine Appearance CLOUDY Urine pH 7.0 (5.0-8.0) Ur Specific [place] 1.015 (1.005-1.025) Urine Protein 2+ H (NEG-TRACE) MG/DL Urine Glucose (UA) NEG (NEG) MG/DL Urine Ketones NEG (NEG) MG/DL Urine Blood 3+ H (NEG) Urine Nitrite NEG (NEG) Ur Leukocyte Esterase 3+ H (NEG) Urine RBC 76-150 H (0) /HPF Urine WBC TNTC H (0-4) /HPF Ur Squamous Epith Cells 1+ /LPF Urine Bacteria NONE /LPF Urine Mucus 1+ /LPF Discharge Plan Discharge Clinical Impression: Dysuria, BPH with obstruction/lower urinary tract symptoms, Obstructive uropathy Patient Disposition: Home, Self-Care Instructions: Bernabe Catheter Placement and Care (ED) Prescriptions: New cephalexin [Keflex] 500 mg capsule 500 mg PO QID Qty: 28 RF: 0 No Action omeprazole 20 mg capsule,delayed release(DR/EC) 20 mg PO BID RF: 0 Anoro Ellipta 62.5-25 mcg/actuation blister with device 1 puff PO DAILY RF: 0 Entresto 24-26 mg tablet 1 tab PO BID RF: 0 ipratropium-albuterol 0.5 mg-3 mg(2.5 mg base)/3 mL Solution For Nebulization 3 ml INHALATION QID PRN (Reason: Shortness Of Breath) RF: 0 warfarin [Jantoven] 7.5 mg Tablet 7.5 mg PO SUWE RF: 0 metoprolol succinate 200 mg Tablet Extended Release 24 Hr 300 mg PO QPM RF: 0 tamsulosin 0.4 mg Capsule 0.4 mg PO QAM RF: 0 warfarin [Jantoven] 5 mg Tablet 5 mg PO MOTUTHFR RF: 0 digoxin 125 mcg (0.125 mg) Tablet 125 mcg PO DAILY RF: 0 ampicillin 500 mg capsule 500 mg PO TID 7 Days Qty: 21 RF: 0 tramadol 50 mg tablet 50 mg PO Q6H PRN (Reason: pain (scale score 1-3)) Qty: 7 RF: 0 trimethoprim 100 mg tablet 100 mg PO Q12H 5 Days Qty: 10 RF: 0 cefuroxime axetil 250 mg tablet 250 mg PO BID 7 Days Qty: 14 RF: 0 Referrals: Antwan Granados MD [Physician] - 2 days
[2020-05-20 10:16] VITALS: BP 144/61; PULSE 71; RESP 17; TEMP 36.5; O2SAT 100
[2020-05-20 10:51] LABS: Glucose Urine UA NEG (NEG); Leukocyte Esterase Urine 3+ (NEG); Nitrite Urine NEG (NEG); Specific Gravity - Urine 1.015 (1.005-1.025); Urine Blood 3+ (NEG); Urine Ketones NEG (NEG); Urine Protein 2+ MG/DL (NEG-TRACE)
[2020-05-20 10:57] LABS: Appearance Urine CLOUDY; Color Urine YELLOW
[2020-05-20 11:10] LABS: Mucus Urine 1+ /LPF; Squamous Epithelial Cell Urine 1+ /LPF; WBC Urine TNTC /HPF (0-4)
[2020-05-20 12:12] VITALS: BP 144/68; PULSE 70; TEMP 36.5; O2SAT 100
[2020-05-20] MEDS: cephALEXin 500 MG CAPSULE PO (12:12)
== END 2020-05-20 12:23 | disposition home or self-care (01) ==
PROVIDERS: Emergency Provider Emergency Medicine; PCP Internal Medicine
DX: R30.0 Dysuria (principal); N40.0 Benign prostatic hyperplasia without lower urinary tract symptoms; N13.9 Obstructive and reflux uropathy, unspecified; Z87.891 Personal history of nicotine dependence; Z79.899 Other long term (current) drug therapy
CPT/HCPCS: 51798; 81001; 87086; 99283

== ENCOUNTER → 2020-05-27 09:51 | Outpatient (BNVA) | payer MEDICARE, SELFPAY | PROVIDERS: PCP Internal Medicine; Referring Provider Internal Medicine; Visit Provider Urology | DX: R33.9 Retention of urine, unspecified (principal) | CPT/HCPCS: 51700; 99212 ==

== ENCOUNTER → 2020-06-09 14:47 | Outpatient (BNVA) | payer MEDICARE, SELFPAY | PROVIDERS: PCP Internal Medicine; Visit Provider Urology | DX: Z13.89 Encounter for screening for other disorder (principal) | CPT/HCPCS: 99212 ==

== ENCOUNTER → 2020-08-20 13:34 | Outpatient (BNVA) | payer MEDICARE, SELFPAY | PROVIDERS: PCP Internal Medicine; Visit Provider Urology | DX: R33.9 Retention of urine, unspecified (principal) | CPT/HCPCS: 51798; 99212 ==

== ENCOUNTER 2020-11-14 09:21 | Emergency (ER) | payer MEDICARE, SELFPAY ==
--- NOTE | ~2020-11-14 | CT_ITS ---
EXAMINATION: CT ABDOMEN AND PELVIS WITH CONTRAST CLINICAL INFORMATION: Left lower quadrant abdominal pain. COMPARISON: None TECHNIQUE: Multidetector volumetric images were obtained from the superior aspect of the liver through the pubic symphysis following administration 85 mL of Omnipaque 350 intravenous contrast. Sagittal and coronal reformatted images were obtained on the technologist's workstation. Oral contrast: No This CT examination was performed using dose optimization techniques as appropriate, variously including the following: *Automated exposure control *Adjustment of mA and/or kV according to patient size (this includes techniques or standardized protocols for targeted exams where dose is matched to indication/reason for exam; i.e. extremities or head) *Use of iterative reconstruction technique DLP: 464 mGy-cm FINDINGS: LUNG BASES: There are bilateral moderate effusions slightly greater on the left with bibasilar atelectasis. The heart size is enlarged. There are pacer electrodes in right ventricle. LIVER, GALLBLADDER, AND BILIARY TREE: The liver is normal in size, shape, and attenuation. There is a 1.3 cm cyst left hepatic lobe and 8 mm lesion right hepatic lobe. Minimal prominence of intrahepatic ducts is seen. The gallbladder is distended with mild posterior wall focal thickening measuring 4 mm on axial image 33/3.. PANCREAS: Unremarkable. SPLEEN: Unremarkable. ADRENAL GLANDS: Unremarkable. KIDNEYS AND URETERS: The kidneys are normal in size, shape, and attenuation. No hydronephrosis, hydroureter, or calculi seen. No perinephric stranding. There is a 7 mm hypodensity in the lower and mid pole cortex right kidney likely small cyst. BLADDER: There is diffuse bladder wall thickening measuring maximum 9 mm along the superior wall. There is a TURP defect. No bladder calculi seen. GASTROINTESTINAL TRACT: There is moderate stool diverticuli and gas seen throughout the colon without significant distention. Diffuse sigmoid diverticula as noted without mural thickening or pericolic fat stranding. There is mild ascites. The small bowel loops are normal caliber without distention. ABDOMINAL WALL: No significant hernia is appreciated. LYMPH NODES: Normal. VASCULAR: There is atherosclerotic calcification of the entire abdominal aorta and the common iliac vessels without aneurysmal dilatation.. PELVIC VISCERA: The prostate gland is enlarged with a small TURP defect. There is central gland calcifications present. OSSEOUS STRUCTURES: No lytic or sclerotic process seen. There is moderate ventral spondylosis throughout lumbar spine. No lytic process seen. CT/CT abdomen pelvis w con IMPRESSION: Bilateral moderate pleural effusions greater on the left with bibasilar atelectasis. Cardiomegaly. Diffuse sigmoid and scattered rest of colon diverticulosis without diverticulitis. There is moderate constipation. Distended gallbladder with mild posterior wall focal mural thickening question polyp or lesion. Hepatic and right renal cysts. Severe constipation. Moderate prostatomegaly with TURP defect. Diffuse bladder wall thickening.
--- NOTE | ~2020-11-14 | US_ITS ---
EXAMINATION: US ABDOMEN LIMITED CLINICAL INFORMATION: Abdominal pain, evaluate gallbladder. COMPARISON: None TECHNIQUE: Real-time imaging of the right upper quadrant abdominal viscera. FINDINGS: PANCREAS: Visualized portions unremarkable. LIVER: Small anechoic cysts demonstrate benign features. GALLBLADDER: Moderately distended containing minimal dependent sludge, but no significant mural thickening or pericholecystic fluid. Color Doppler showed no abnormal vascular flow. COMMON BILE DUCT: Normal in caliber measuring 0.8 cm in diameter. RIGHT KIDNEY: 10.2 cm. A tiny anechoic cyst in the lower pole measures 0.6 cm. FREE FLUID: None. Bilateral pleural effusions. US/US abdomen limited IMPRESSION: 1. Moderately distended gallbladder with minimal dependent sludge. No evidence for acute cholecystitis. If right upper quadrant symptoms persist or worsen, short-term repeat right upper quadrant ultrasound is recommended as clinically indicated. 2. Small hepatic cysts demonstrate benign features. 3. Bilateral pleural effusions correlate with CT findings. 4. Tiny right renal cyst demonstrates benign features.
[2020-11-14 09:26] VITALS: BP 136/48; PULSE 68; RESP 18; TEMP 37.2; O2SAT 100; BMI 19.9
--- NOTE | 2020-11-14 09:43 | ECG_ITS ---
Test Reason : CHECK CARDIAC STATUS Blood Pressure : / mmHG Vent. Rate : 072 BPM Atrial Rate : 070 BPM P-R Int : 000 ms QRS Dur : 160 ms QT Int : 460 ms P-R-T Axes : 000 165 025 degrees QTc Int : 503 ms Suspect limb lead reversal, interpretation assumes no reversal Ventricular-paced rhythm Underlying rhythm atrial fibrillation Low voltage QRS Abnormal ECG When compared with ECG of 01-APR-2020 17:06, No significant changes seen Referred By: Sahara Contreras Electronically Signed By:PATRICIA PATEL
--- NOTE | 2020-11-14 09:44 | ED_ITS ---
HPI - Abdominal Pain General Chief Complaint: Abdominal Pain Stated Complaint: ABD PAIN Time Seen by Provider: 11/14/20 09:38 Source: patient and family Mode of arrival: ambulatory Limitations: no limitations History of Present Illness HPI narrative: 85-year-old male with a past medical history of AFib on Coumadin, hypertension, esophageal cancer status post resection,ICD/pacemaker, CH F with reduced EF of 25%, GERD, celiac disease, BPH status post partial prostatectomy here with complaints of lower AP since 11pm last night. No urinary symptoms. No fevers, chills, nausea, vomiting, diarrhea. Related Data Home Medications Medication Instructions Recorded Confirmed Anoro Ellipta 1 puff PO DAILY 04/01/20 05/04/20 Entresto 1 tab PO BID 04/01/20 04/15/20 digoxin 125 mcg PO DAILY 04/01/20 04/15/20 ipratropium-albuterol 3 ml INHALATION QID PRN 04/01/20 04/15/20 metoprolol succinate 300 mg PO QPM 04/01/20 04/15/20 omeprazole 20 mg PO BID 04/01/20 05/04/20 tamsulosin 0.4 mg PO QAM 04/01/20 04/15/20 warfarin [Jantoven] 5 mg PO MOTUTHFRSA 04/01/20 04/15/20 warfarin [Jantoven] 7.5 mg PO SUWE 04/01/20 04/15/20 Previous Rx's Medication Instructions Recorded tramadol 50 mg PO Q6H PRN #7 tab 05/04/20 trimethoprim 100 mg PO Q12H 5 Days #10 tab 05/04/20 ampicillin 500 mg PO TID 7 Days #21 cap 05/09/20 cefuroxime axetil 250 mg PO BID 7 Days #14 tab 05/09/20 cephalexin [Keflex] 500 mg PO QID #28 cap 05/20/20 finasteride 5 mg tablet 5 mg PO DAILY 90 Days #90 tab 05/27/20 cefuroxime axetil 250 mg PO BID #14 tab 11/14/20 Allergies Allergy/AdvReac Type Severity Reaction Status Date / Time No Known Allergies Allergy Unknown NONE Verified 08/20/20 13:49 Review of Systems Review of Systems Yes all other systems are reviewed and are negative Constitutional: Reports no additional constitutional complaints, Denies body ache(s), Denies chills, Denies fever(s), Denies headache(s) and Denies weakness Eyes: Reports no additional eye complaints and Denies change in vision Reports system reviewed and no additional complaints, except as documented, Denies dizziness, Denies headache(s), Denies nasal congestion, Denies nasal discharge and Denies neck pain Cardiovascular: Reports no additional cardiovascular complaints, Denies chest pain, Denies leg edema and Denies dyspnea Respiratory: Reports no additional respiratory complaints, Denies cough and Denies dyspnea Gastrointestinal: Reports no additional gastrointestinal complaints, Reports abdominal pain, Denies diarrhea, Denies nausea and Denies vomiting Genitourinary: Denies urinary incontinence Musculoskeletal: Reports no additional musculoskeletal complaints, Denies back pain, Denies arthralgias, Denies joint swelling, Denies neck pain, Denies numbness and Denies tingling Skin/Breast: Reports system reviewed and no additional complaints, except as docu and Denies rash Reports system reviewed and no additional complaints, except as documented, Denies Abnormal speech present, Denies dizziness, Denies headache(s), Denies numbness, Denies tingling and Denies weakness Physical Exam Vital Signs: Vital Signs: Last Vital Signs Temp 98.9 F 11/14/20 09:26 Pulse 77 11/14/20 12:55 Resp 18 11/14/20 12:55 BP 136/48 L 11/14/20 09:26 Pulse Ox 100 11/14/20 09:26 Body Mass Index 19.9 Const: General: cooperative, healthy appearing, comfortable and no acute distress Orientation/consciousness: patient oriented x3 Limitations: no li mitations HENMT: Head: Yes normal to inspection Ears: hearing grossly normal bilaterally General nose exam: Normal external nose present Face and sinus: Yes normal facial exam Mouth: Normal oral and palatal mucosa present Throat: Yes posterior oropharynx normal Eyes: General: appearance normal, both eyes and all related structures Pupils: Equal, round and reactive pupils present Neck: Neck: Yes normal visual inspection Chest: Chest palpation & inspection: normal inspection of the chest Resp: Effort & Inspection: normal respiratory effort Auscultation: clear to auscultation bilaterally Cardio: Rate: regular rate Rhythm: regular rhythm Peripheral pulses: Peripheral pulses 2+ throughout GI: Inspection: Yes normal to inspection Palpation (GI): Soft to palpation and Tenderness to palpation present (GI) (low AP, more focal LLQ. +guarding/rebound) Auscultation: normal bowel sounds Back/Spine/Pelvis: Thoracic/Lumbar Spine: thoracic and lumbar spine normal to inspection Skin: General skin exam: no rashes or lesions noted Neuro: General: patient oriented x3, no focal motor deficits and normal sensation to monofilament Cranial nerves: Yes Equal, round and reactive pupils present Cognition (Neuro): normal cognition Speech: No Abnormal speech present Gait exam (Neuro): Normal gait present Motor exam (neuro): 5/5 motor strength present throughout Extrem: General: Yes normal to inspection, Yes no pedal edema and Yes no calf tenderness Course Course Course Narrative: 85-year-old male here with complaints of abdominal pain since last evening. More focal pain in the left lower quadrant with some rebound and guarding. Will need labs, UA, CTA/P 1330- CT A/P Bilateral moderate pleural effusions greater on the left with bibasilar atelectasis. Cardiomegaly. Diffuse sigmoid and scattered rest of colon diverticulosis without diverticulitis. There is moderate constipation. Distended gallbladder with mild posterior wall focal mural thickening question polyp or lesion. Hepatic and right renal cysts. Severe constipation. Moderate prostatomegaly with TURP defect. Diffuse bladder wall thickening. UA pending. Abdominal US to eval GB. 1420-ultrasound shows distended gallbladder with mild sludge but no stones. No evidence of acute cholecystitis. No focal right upper quadrant pain on exam. UA shows UTI. Will treat with course of antibiotics. Afebrile, no leukocytosis or shift. Urine culture sent and will follow with patient if needed. Reviewed worrisome signs and symptoms of when to return to the emergency department. Comfortable discharge home. MDM - Abdominal Pain MDM Narrative Medical decision making narrative: UTI, diverticulitis, appendicitis, renal colic, pyelonephritis Medical Records Attestation: I reviewed the patient's medical records. Lab Data Attestation: I reviewed the patient's lab results. Result diagrams: 11/14/20 10:11/14/20 10: Labs: Lab Results 11/14/20 11/14/20 11/14/20 Range/Units 10:29 10: 10:29 WBC 5.0 (4.8-10.8) X10*3/uL RBC 3.15 L (4.60-5.80) X10*6/uL Hgb 10.4 L (14.0-18.0) g/dl Hct 32.1 L (42-52) % MCV 101.9 H (80-98) fL MCH 33.0 (27.0-33.0) pg MCHC 32.4 (31.0-36.0) g/dl RDW 14.6 (11.0-16.0) % Plt Count 121 L (160-400) X10*3/uL MPV 9.4 (9.4-12.4) fL Immature Gran % (Auto) 0.2 (0.0-0.4) % Neut % (Auto) 86.4 H (45-73) % Lymph % (Auto) 7.2 L (20-40) % [place] % (Auto) 6.0 (2-11) % Eos % (Auto) 0.0 (0-4) % Baso % (Auto) 0.2 (0-2) % Lymph # (Auto) 0.4 L (1.2-4.9) X10*3/uL [place] # (Auto) 0.3 (0.1-1.2) X10*3/uL Eos # (Auto) 0.0 (0.0-0.4) X10*3/uL Baso # (Auto) 0.0 (0.0-0.2) X10*3/uL Abs Immat Gran (auto) 0.01 (0.00-0.03) X10*3/uL Absolute Neuts (auto) 4.3 (2.0-8.3) X10*3/uL Absolute Nucleated RBC 0.000 (0.0-0.012) X10*3/uL Nucleated RBC % (auto) 0.0 (0.0-0.2) /100WBC Smear Tech's Comments VERIFIED PT 57.1 H D (10.8-13.0) SEC INR 4.7 H (0.9-1.1) Sodium 144 (135-145) mmol/L Potassium 3.6 (3.3-5.1) mmol/L Chloride 113 H (96-108) mmol/L Carbon Dioxide 24 (22-29) mmol/L Anion Gap 11 L (12-20) BUN 27 H (9-16) mg/dL Creatinine 1.09 (0.5-1.4) mg/dL Estim Creat Clear Calc 49.7 Estimated GFR > 60 Random Glucose 97 (60-115) mg/dL Calcium 8.1 L (8.4-10.2) mg/dL Magnesium 1.9 (1.6-2.6) mg/dL Total Bilirubin 1.2 H (0.0-1.0) mg/dL Direct Bilirubin 0.7 H (0.0-0.5) mg/dL AST 12 (5-37) U/L ALT 11 (0-40) U/L Alkaline Phosphatase 79 (39-117) U/L Total Protein 4.8 L (6.5-8.0) g/dL Albumin 3.1 L (3.5-5.0) g/dL Lipase 4 L (8-78) U/L Urine Color Urine Appearance Urine pH (5.0-8.0) Ur Specific Temple (1.005-1.025) Urine Protein (NEG-TRACE) MG/DL Urine Glucose (UA) (NEG) MG/DL Urine Ketones (NEG) MG/DL Urine Blood (NEG) Urine Nitrite (NEG) Ur Leukocyte Esterase (NEG) Urine RBC (0) /HPF Urine WBC (0-4) /HPF Ur Squamous Epith Cells /LPF Ur Renal Epithelial Cell /LPF Urine Bacteria /LPF 11/14/20 Range/Units 13:59 WBC (4.8-10.8) X10*3/uL RBC (4.60-5.80) X10*6/uL Hgb (14.0-18.0) g/dl Hct (42-52) % MCV (80-98) fL MCH (27.0-33.0) pg MCHC (31.0-36.0) g/dl RDW (11.0-16.0) % Plt Count (160-400) X10*3/uL MPV (9.4-12.4) fL Immature Gran % (Auto) (0.0-0.4) % Neut % (Auto) (45-73) % Lymph % (Auto) (20-40) % [place] % (Auto) (2-11) % Eos % (Auto) (0-4) % Baso % (Auto) (0-2) % Lymph # (Auto) (1.2-4.9) X10*3/uL [place] # (Auto) (0.1-1.2) X10*3/uL Eos # (Auto) (0.0-0.4) X10*3/uL Baso # (Auto) (0.0-0.2) X10*3/uL Abs Immat Gran (auto) (0.00-0.03) X10*3/uL Absolute Neuts (auto) (2.0-8.3) X10*3/uL Absolute Nucleated RBC (0.0-0.012) X10*3/uL Nucleated RBC % (auto) (0.0-0.2) /100WBC Smear Tech's Comments PT (10.8-13.0) SEC INR (0.9-1.1) Sodium (135-145) mmol/L Potassium (3.3-5.1) mmol/L Chloride (96-108) mmol/L Carbon Dioxide (22-29) mmol/L Anion Gap (12-20) BUN (9-16) mg/dL Creatinine (0.5-1.4) mg/dL Estim Creat Clear Calc Estimated GFR Random Glucose (60-115) mg/dL Calcium (8.4-10.2) mg/dL Magnesium (1.6-2.6) mg/dL Total Bilirubin (0.0-1.0) mg/dL Direct Bilirubin (0.0-0.5) mg/dL AST (5-37) U/L ALT (0-40) U/L Alkaline Phosphatase (39-117) U/L Total Protein (6.5-8.0) g/dL Albumin (3.5-5.0) g/dL Lipase (8-78) U/L Urine Color YELLOW Urine Appearance CLOUDY Urine pH 6.0 (5.0-8.0) Ur Specific Temple 1.010 (1.005-1.025) Urine Protein 1+ H (NEG-TRACE) MG/DL Urine Glucose (UA) NEG (NEG) MG/DL Urine Ketones NEG (NEG) MG/DL Urine Blood 1+ H (NEG) Urine Nitrite POS H (NEG) Ur Leukocyte Esterase 1+ H (NEG) Urine RBC 5-9 H (0) /HPF Urine WBC 50-75 H (0-4) /HPF Ur Squamous Epith Cells 1+ /LPF Ur Renal Epithelial Cell TRACE /LPF Urine Bacteria 1+ /LPF Imaging Data CT scan - abdomen: Attestation: I personally reviewed and interpreted this imaging study as follows: Radiologist's impression: IMPRESSION: Bilateral moderate pleural effusions greater on the left with bibasilar atelectasis. Cardiomegaly. Diffuse sigmoid and scattered rest of colon diverticulosis without diverticulitis. There is moderate constipation. Distended gallbladder with mild posterior wall focal mural thickening question polyp or lesion. Hepatic and right renal cysts. Severe constipation. Moderate prostatomegaly with TURP defect. Diffuse bladder wall thickening. US - abdomen: Attestation: I personally reviewed and interpreted this imaging study as follows: Radiologist's impression: MPRESSION: 1. Moderately distended gallbladder with minimal dependent sludge. No evidence for acute cholecystitis. If right upper quadrant symptoms persist or worsen, short-term repeat right upper quadrant ultrasound is recommended as clinically indicated. 2. Small hepatic cysts demonstrate benign features. 3. Bilateral pleural effusions correlate with CT findings. 4. Tiny right renal cyst demonstrates benign features. ECG Data Attestation: I personally reviewed and interpreted this ECG as follows: ECG interpretation date: 11/14/20 ECG interpretation time: 10:17 Interpretation: Paced rhthym. Discharge Plan Discharge Clinical Impression: Bacterial UTI Patient Disposition: Home, Self-Care Instructions: Urinary Tract Infection in Older Adults (ED) Additional Instructions: Increase fluids, rest We have sent a urine culture which will help us determine what antibiotic is best to treat urinary tract infection. We will call you if we need to change your antibiotic Return for generalized weakness, fever greater than 100.4, 2 or more vomiting episodes Your Ultrasound showed that your gallbladder was a little bit inflammed but no signs of gallstones or infection Prescriptions: New cefuroxime axetil 250 mg tablet 250 mg PO BID Qty: 14 RF: 0 No Action omeprazole 20 mg capsule,delayed release(DR/EC) 20 mg PO BID RF: 0 Anoro Ellipta 62.5-25 mcg/actuation blister with device 1 puff PO DAILY RF: 0 Entresto 24-26 mg tablet 1 tab PO BID RF: 0 ipratropium-albuterol 0.5 mg-3 mg(2.5 mg base)/3 mL Solution For Nebulization 3 ml INHALATION QID PRN (Reason: Shortness Of Breath) RF: 0 warfarin [Jantoven] 7.5 mg Tablet 7.5 mg PO SUWE RF: 0 metoprolol succinate 200 mg Tablet Extended Release 24 Hr 300 mg PO QPM RF: 0 tamsulosin 0.4 mg Capsule 0.4 mg PO QAM RF: 0 warfarin [Jantoven] 5 mg Tablet 5 mg PO MOTUTHFRSA RF: 0 digoxin 125 mcg (0.125 mg) Tablet 125 mcg PO DAILY RF: 0 ampicillin 500 mg capsule 500 mg PO TID 7 Days Qty: 21 RF: 0 cephalexin [Keflex] 500 mg capsule 500 mg PO QID Qty: 28 RF: 0 tramadol 50 mg tablet 50 mg PO Q6H PRN (Reason: pain (scale score 1-3)) Qty: 7 RF: 0 trimethoprim 100 mg tablet 100 mg PO Q12H 5 Days Qty: 10 RF: 0 cefuroxime axetil 250 mg tablet 250 mg PO BID 7 Days Qty: 14 RF: 0 finasteride 5 mg tablet 5 mg PO DAILY 90 Days Qty: 90 RF: 1 Referrals: Karan Do PA [Primary Care Provider] - 2 days Interventions: ED Discharge Assessment Last Done: 11/14/20 14:29 Discharge Date/Time: 11/14/20 14:29 [facility] Past Medical History Attestation statement: The following information was validated with the patient. Source: old records reviewed and nursing notes reviewed Medical History Atrial fibrillation (Unknown) BPH (benign prostatic hyperplasia) (Unknown) CHF (congestive heart failure) (Unknown) COPD (chronic obstructive pulmonary disease) (Unknown) Diabetes (Unknown) Esophageal cancer (Unknown) HTN (hypertension) (Unknown) Hx of cardiomyopathy Lab test negative for COVID-19 virus Pacemaker UTI (urinary tract infection) (Unknown) Surgical History AICD (automatic cardioverter/defibrillator) present (Unknown) H/O colonoscopy History of esophagectomy History of permanent cardiac pacemaker placement Hx of cardiac catheterization Hx of cataract surgery Hx of left inguinal hernia repair Hx of shoulder surgery Family History Family History Father No problems noted. Mother No problems noted. Social History Social History Household Members: Spouse Housing: House Do you presently have visiting nurse or other home services: No Alcohol intake: never Second Hand Smoke Exposure: No Advance Directives: No Advance Directives Information Provided: No service: No Current occupational status: retired
[2020-11-14] MEDS: ondansetron HCL 4 MG/2 ML VIAL IVPUSH (10:07)
[2020-11-14] MEDS: Morphine Sulfate 4 MG/ML CARTRIDGE 2 MG IVPUSH (10:07)
[2020-11-14 10:36] LABS: Basophils Percent Auto 0.2 % (0-2); Hematocrit 32.1 % (42-52); Hemoglobin 10.4 g/dl (14.0-18.0); Imm Gran Abs Auto 0.01 X10*3/uL (0.00-0.03); Imm Gran Pct Auto 0.2 % (0.0-0.4); Lymphocytes Absolute Auto 0.4 X10*3/uL (1.2-4.9); Lymphocytes Percent Auto 7.2 % (20-40); MANUAL DIFF FLAG SCAN; Mean Corpuscular HGB Conc 32.4 g/dl (31.0-36.0); Mean Corpuscular Volume 101.9 fL (80-98); Mean Platelet Volume 9.4 fL (9.4-12.4); Monocytes Absolute Auto 0.3 X10*3/uL (0.1-1.2); Neutrophils Absolute Auto 4.3 X10*3/uL (2.0-8.3); Neutrophils Percent Auto 86.4 % (45-73); Platelet Count 121 X10*3/uL (160-400); Red Blood Count 3.15 X10*6/uL (4.60-5.80); Red Cell Distribution Width 14.6 % (11.0-16.0); SCAN SMEAR FLAG 1
[2020-11-14 10:46] LABS: INTERNATIONAL NORM RATIO 4.7 (0.9-1.1); Prothrombin Time 57.1 SEC (10.8-13.0)
[2020-11-14 10:56] LABS: SLIDE REVIEW VERIFIED
[2020-11-14 11:01] LABS: Alanine Aminotransferase 11 U/L (0-40); Albumin Level 3.1 g/dL (3.5-5.0); Alkaline Phosphatase 79 U/L (39-117); Anion Gap 11 (12-20); Aspartate Amino Transferase 12 U/L (5-37); Bilirubin Direct 0.7 mg/dL (0.0-0.5); Bilirubin Total 1.2 mg/dL (0.0-1.0); Blood Urea Nitrogen 27 mg/dL (9-16); Calcium 8.1 mg/dL (8.4-10.2); Carbon Dioxide 24 mmol/L (22-29); Chloride 113 mmol/L (96-108); Creatinine Clr Calc Pharmacy 49.7; Estimated Glomerular Filt Rate > 60; Glucose Random 97 mg/dL (60-115); Lipase 4 U/L (8-78); Magnesium 1.9 mg/dL (1.6-2.6); Potassium 3.6 mmol/L (3.3-5.1); Sodium 144 mmol/L (135-145); Total Protein 4.8 g/dL (6.5-8.0)
[2020-11-14] MEDS: iohexoL 350 MG/ML 100 ML INFUS..BTL IV (12:04)
[2020-11-14 12:55] VITALS: PULSE 77; RESP 18
[2020-11-14 14:05] LABS: Glucose Urine UA NEG (NEG); Leukocyte Esterase Urine 1+ (NEG); Nitrite Urine POS (NEG); UACC Culture Trigger YES; Urine Blood 1+ (NEG); Urine Ketones NEG (NEG); Urine Protein 1+ MG/DL (NEG-TRACE)
[2020-11-14 14:06] LABS: Appearance Urine CLOUDY; Color Urine YELLOW
[2020-11-14 14:13] LABS: Bacteria Urine 1+ /LPF; Renal Epithelial Cells Urine TRACE /LPF; Squamous Epithelial Cell Urine 1+ /LPF; WBC Urine 50-75 /HPF (0-4)
== END 2020-11-14 14:29 | disposition home or self-care (01) ==
PROVIDERS: Nurse Practitioner Family; Emergency Provider Emergency Medicine Emergency Medical Services; PCP Physician Assistant Medical
DX: N30.90 Cystitis, unspecified without hematuria (principal); B96.89 Other specified bacterial agents as the cause of diseases classified elsewhere; R10.30 Lower abdominal pain, unspecified; I48.91 Unspecified atrial fibrillation; I10 Essential (primary) hypertension; Z79.899 Other long term (current) drug therapy; Z79.01 Long term (current) use of anticoagulants; Z95.0 Presence of cardiac pacemaker
CPT/HCPCS: 36415; 74177; 76705; 80048; 80076; 81001; 81003; 83690; 83735; 85025; 85610; 87086; 87088; 87186; 93005; 96365; 96375; 99284; J2270; J2405; Q9967

== ENCOUNTER 2020-11-24 10:20 | Emergency (ER) | payer MEDICARE, SELFPAY ==
--- NOTE | 2020-11-24 | ECG_ITS ---
Test Reason : INFECTION Blood Pressure : / mmHG Vent. Rate : 075 BPM Atrial Rate : 053 BPM P-R Int : 000 ms QRS Dur : 134 ms QT Int : 430 ms P-R-T Axes : 000 173 012 degrees QTc Int : 480 ms Ventricular-paced rhythm with Premature ventricular complexes Abnormal ECG When compared with ECG of 24-NOV-2020 12:12, No significant changes seen Referred By: Ashley Stewart Electronically Signed By:DANNA RICO MD
--- NOTE | ~2020-11-24 | XR_ITS ---
EXAMINATION: XR CHEST CLINICAL INFORMATION: SOB, chest pain. COMPARISON: Chest x-ray 04/01/2020 TECHNIQUE: Frontal view of the chest was obtained. FINDINGS: There is mild cardiomegaly with normal pulmonary vascularity. There is moderate opacification of left lung base retrocardiac area likely consolidation/atelectasis and/or effusion. There are pacer electrodes in right atrium and right ventricle. The lungs are well-expanded and clear. No gross bony abnormality seen. XR/XR chest 1V IMPRESSION: Cardiomegaly. Pacer electrodes in right atrium and right ventricle are stable. Left lower lobe consolidation/atelectasis/effusion.
[2020-11-24 11:11] VITALS: BP 119/57; PULSE 67; RESP 16; TEMP 36.8; O2SAT 100; BMI 20.3
--- NOTE | 2020-11-24 11:28 | ECG_ITS ---
Test Reason : INFECTION Blood Pressure : / mmHG Vent. Rate : 083 BPM Atrial Rate : 072 BPM P-R Int : 000 ms QRS Dur : 158 ms QT Int : 450 ms P-R-T Axes : 000 175 028 degrees QTc Int : 528 ms Ventricular-paced rhythm with Premature ventricular complexes in a pattern of bigeminy Abnormal ECG Premature ventricular complexes are now Present Referred By: Generic ED Physician Electronically Signed By:DANNA RICO MD
[2020-11-24 11:46] VITALS: PULSE 70; RESP 19
--- NOTE | 2020-11-24 11:48 | ED_ITS ---
HPI - General Adult General Chief complaint: General Medical Stated complaint: shortness of breath Time Seen by Provider: 11/24/20 11:48 Source: patient and family Mode of arrival: wheelchair Limitations: no limitations History of Present Illness HPI narrative: 85 y/o male with history of atrial fibrillation on Coumadin, HTN, esophageal cancer s/p resection, CHF w/ EF 25%, s/p AICD/PPM, GERD, Celiac disease, BPH s/p TURP, history of UTI's who presents to the ER with complaints of shortness of breath for the last 4 days. He was recently started on lasix by his Shafting Cleaner and had only taken it twice. He did not take it yet today. He states he cannot walk 15 feet without getting short of breath which is new for him. He has a newly productive cough of kilgore phlegm. No chest pain. He reports some ongoing abdominal pain but it is significantly improved from last week - seen here for this and had CT scan showing constipation and distended gallbladder. He is stooling normally and pain is much improved. No fever or chills. MD complaint: SOB Onset (ago): day(s) (4) Location: chest and abdomen Radiation: non-radiation Severity: moderate Pain Consistency: intermittent Relieving factors: rest Exacerbating factors: movement Associated symptoms: cough, malaise and shortness of breath Treatments prior to arrival: none Related Data Home Medications Medication Instructions Recorded Confirmed Anoro Ellipta 1 puff PO DAILY 04/01/20 05/04/20 Entresto 1 tab PO BID 04/01/20 04/15/20 digoxin 125 mcg PO DAILY 04/01/20 04/15/20 ipratropium-albuterol 3 ml INHALATION QID PRN 04/01/20 04/15/20 metoprolol succinate 300 mg PO QPM 04/01/20 04/15/20 omeprazole 20 mg PO BID 04/01/20 05/04/20 tamsulosin 0.4 mg PO QAM 04/01/20 04/15/20 warfarin [Jantoven] 5 mg PO MOTUTHFRSA 04/01/20 04/15/20 warfarin [Jantoven] 7.5 mg PO SUWE 04/01/20 04/15/20 Previous Rx's Medication Instructions Recorded tramadol 50 mg PO Q6H PRN #7 tab 05/04/20 trimethoprim 100 mg PO Q12H 5 Days #10 tab 05/04/20 ampicillin 500 mg PO TID 7 Days #21 cap 05/09/20 cefuroxime axetil 250 mg PO BID 7 Days #14 tab 05/09/20 cephalexin [Keflex] 500 mg PO QID #28 cap 05/20/20 finasteride 5 mg tablet 5 mg PO DAILY 90 Days #90 tab 05/27/20 cefuroxime axetil 250 mg PO BID #14 tab 11/14/20 amoxicillin-pot clavulanate 1 tab PO BID #14 tab 11/24/20 [Augmentin] furosemide [Lasix] 20 mg PO DAILY #7 tab 11/24/20 guaifenesin [Mucinex] 1,200 mg PO BID #10 tab 11/24/20 potassium chloride 20 meq PO DAILY #7 tab 11/24/20 prednisone 40 mg PO DAILY #10 tab 11/24/20 Allergies Allergy/AdvReac Type Severity Reaction Status Date / Time No Known Allergies Allergy Unknown NONE Verified 08/20/20 13:49 Review of Systems Review of Systems: Constitutional: No Fever, No Chills ENT/Mouth: No sore throat, No Rhinorrhea, No Swallowing Difficulty Eyes: No Eye Pain, No Swelling, No Redness Cardiovascular: No Chest Pain, + SOB, No Orthopnea, + Edema Respiratory: + Cough, + Sputum, No Wheezing, + dyspnea Gastrointestinal: No Nausea, No Vomiting, No Diarrhea, + abdominal Pain, No Hematochezia, No Melena Genitourinary: No Dysuria, No Urinary Frequency, No Hematuria Musculoskeletal: No joint pain, No Myalgias Skin: No Skin Lesions, No rash Neuro: No Weakness, No Numbness, No Dizziness, No Headache Psych: No Anxiety/Panic, No Depression Heme/Lymph: No Bruising, No Lymphadenopathy Endocrine: No Polyuria, No Polydipsia PMFSH Past Medical History Medical History Atrial fibrillation (Unknown) BPH (benign prostatic hyperplasia) (Unknown) CHF (congestive heart failure) (Unknown) COPD (chronic obstructive pulmonary disease) (Unknown) Diabetes (Unknown) Esophageal cancer (Unknown) HTN (hypertension) (Unknown) Hx of cardiomyopathy Lab test negative for COVID-19 virus Pacemaker UTI (urinary tract infection) (Unknown) Surgical History AICD (automatic cardioverter/defibrillator) present (Unknown) H/O colonoscopy History of esophagectomy History of permanent cardiac pacemaker placement Hx of cardiac catheterization Hx of cataract surgery Hx of left inguinal hernia repair Hx of shoulder surgery Family History Family History Father No problems noted. Mother No problems noted. Social History Social History Household Members: Spouse Housing: House Do you presently have visiting nurse or other home services: No Alcohol intake: never Patient Tobacco Use Status: Never used Tobacco Second Hand Smoke Exposure: No Use of substances other than those prescribed or required for medical reasons: No Advance Directives: Yes Advance Directives Information Provided: Yes Advance Directives on File: No service: No Current occupational status: retired Physical Exam Vital Signs: Vital Signs: Last Vital Signs Temp 98.2 F 11/24/20 11:11 Pulse 79 11/24/20 13:59 Resp 17 11/24/20 13:59 BP 142/68 H 11/24/20 13:59 Pulse Ox 98 11/24/20 13:59 Body Mass Index 20.3 Appearance: Alert. Oriented X3. No acute distress. Eyes: Pupils equal, round and reactive to light. ENT: Pharynx normal. Neck: Normal inspection. Neck supple. CVS: Normal heart rate and rhythm. Pulses normal. Respiratory: No respiratory distress. Breath sounds with diminished breath sounds at left base. Congested cough. Abdomen: Soft and nontender. +BS x4 Skin: Skin warm and dry. Normal skin color. Normal skin turgor. No rashes. Extremities: Trace lower extremity edema. Neuro: Oriented X 3. No motor deficit. No sensory deficit. Ambulates with slow but steady gait. Course Course Course Narrative: 85 y/o male with multiple comorbidities including HFrEF 25%, afib on Coumadin, presenting with SOB. Prior CT shows left pleural effusion. No fever or chills. Non-toxic appearing without any hypoxia or respiratory distress. Will get CXR, EKG and lab workup. Will need to ambulate to assess exercise oximetry. Reevaluation(s) Reevaluation #1: CXR with left sided pleural effusion. BNP 500's, lowest it has been on previous visits. No peripheral edema. No leukocytosis, Procal low. Doubt PNA. Troponin mildly elevated at 10, will repeat. EKG without STEMI. No chest pain He ambulated independently without respiratory distress or hypoxia. Reevaluation #2: Repeat troponin remains low, less likely cardiac etiology. Results of CXR and blood work d/w patient and his at the bedside - we discussed management options of pleural effusion including potential thoracentesis however this would require holding or reversing coumadin. He is not hypoxic or in any respiratory distress. No emergent need for this at this time. Will plan to continue lasix and f/u with Cardiology next week. Will also treat for possible bronchitis with his productive cough and congestion. He was encouraged to return to the ER if his respiratory status were to decline at all. Patient and expressed understanding and all questions were answered. Comfortable with d/c home and plan for close outpatient follow up. Medical Decision Making Lab Data Result diagrams: 11/24/20 12:36 11/24/20 12:36 Labs: Lab Results 11/24/20 11/24/20 11/24/20 Range/Units 12:26 12:36 12:36 WBC 6.8 (4.8-10.8) X10*3/uL RBC 3.60 L (4.60-5.80) X10*6/uL Hgb 11.6 L (14.0-18.0) g/dl Hct 35.9 L (42-52) % MCV 99.7 H (80-98) fL MCH 32.2 (27.0-33.0) pg MCHC 32.3 (31.0-36.0) g/dl RDW 13.5 (11.0-16.0) % Plt Count 251 D (160-400) X10*3/uL MPV 9.4 (9.4-12.4) fL Immature Gran % (Auto) 0.3 (0.0-0.4) % Neut % (Auto) 85.6 H (45-73) % Lymph % (Auto) 6.3 L (20-40) % [place] % (Auto) 6.2 (2-11) % Eos % (Auto) 1.0 (0-4) % Baso % (Auto) 0.6 (0-2) % Lymph # (Auto) 0.4 L (1.2-4.9) X10*3/uL [place] # (Auto) 0.4 (0.1-1.2) X10*3/uL Eos # (Auto) 0.1 (0.0-0.4) X10*3/uL Baso # (Auto) 0.0 (0.0-0.2) X10*3/uL Abs Immat Gran (auto) 0.02 (0.00-0.03) X10*3/uL Absolute Neuts (auto) 5.8 (2.0-8.3) X10*3/uL Absolute Nucleated RBC 0.000 (0.0-0.012) X10*3/uL Nucleated RBC % (auto) 0.0 (0.0-0.2) /100WBC Smear Tech's Comments VERIFIED PT (10.8-13.0) SEC INR (0.9-1.1) APTT (24.1-38.0) SEC Sodium 140 (135-145) mmol/L Potassium 3.7 (3.3-5.1) mmol/L Chloride 107 (96-108) mmol/L Carbon Dioxide 24 (22-29) mmol/L Anion Gap 13 (12-20) BUN 19 H (9-16) mg/dL Creatinine 0.98 (0.5-1.4) mg/dL Estim Creat Clear Calc 54.9 Estimated GFR > 60 Random Glucose 115 (60-115) mg/dL Calcium 8.3 L (8.4-10.2) mg/dL Troponin I High Sens (<3.5-35.0) ng/L B-Natriuretic Peptide (<100) pg/mL Lipase 10 (8-78) U/L Procalcitonin 0.08 ng/mL COVID-19 ([facility]) (Negative) COVID-19 Clin Com 11/24/20 11/24/20 11/24/20 Range/Units 12:36 12:36 12:37 WBC (4.8-10.8) X10*3/uL RBC (4.60-5.80) X10*6/uL Hgb (14.0-18.0) g/dl Hct (42-52) % MCV (80-98) fL MCH (27.0-33.0) pg MCHC (31.0-36.0) g/dl RDW (11.0-16.0) % Plt Count (160-400) X10*3/uL MPV (9.4-12.4) fL Immature Gran % (Auto) (0.0-0.4) % Neut % (Auto) (45-73) % Lymph % (Auto) (20-40) % [place] % (Auto) (2-11) % Eos % (Auto) (0-4) % Baso % (Auto) (0-2) % Lymph # (Auto) (1.2-4.9) X10*3/uL [place] # (Auto) (0.1-1.2) X10*3/uL Eos # (Auto) (0.0-0.4) X10*3/uL Baso # (Auto) (0.0-0.2) X10*3/uL Abs Immat Gran (auto) (0.00-0.03) X10*3/uL Absolute Neuts (auto) (2.0-8.3) X10*3/uL Absolute Nucleated RBC (0.0-0.012) X10*3/uL Nucleated RBC % (auto) (0.0-0.2) /100WBC Smear Tech's Comments PT 33.3 H D (10.8-13.0) SEC INR 2.8 H (0.9-1.1) APTT 46.7 H (24.1-38.0) SEC Sodium (135-145) mmol/L Potassium (3.3-5.1) mmol/L Chloride (96-108) mmol/L Carbon Dioxide (22-29) mmol/L Anion Gap (12-20) BUN (9-16) mg/dL Creatinine (0.5-1.4) mg/dL Estim Creat Clear Calc Estimated GFR Random Glucose (60-115) mg/dL Calcium (8.4-10.2) mg/dL Troponin I High Sens 10.1 (<3.5-35.0) ng/L B-Natriuretic Peptide (<100) pg/mL Lipase (8-78) U/L Procalcitonin ng/mL COVID-19 ([facility]) Negative (Negative) COVID-19 Clin Com See Note 11/24/20 11/24/20 Range/Units 12:38 15:32 WBC (4.8-10.8) X10*3/uL RBC (4.60-5.80) X10*6/uL Hgb (14.0-18.0) g/dl Hct (42-52) % MCV (80-98) fL MCH (27.0-33.0) pg MCHC (31.0-36.0) g/dl RDW (11.0-16.0) % Plt Count (160-400) X10*3/uL MPV (9.4-12.4) fL Immature Gran % (Auto) (0.0-0.4) % Neut % (Auto) (45-73) % Lymph % (Auto) (20-40) % [place] % (Auto) (2-11) % Eos % (Auto) (0-4) % Baso % (Auto) (0-2) % Lymph # (Auto) (1.2-4.9) X10*3/uL [place] # (Auto) (0.1-1.2) X10*3/uL Eos # (Auto) (0.0-0.4) X10*3/uL Baso # (Auto) (0.0-0.2) X10*3/uL Abs Immat Gran (auto) (0.00-0.03) X10*3/uL Absolute Neuts (auto) (2.0-8.3) X10*3/uL Absolute Nucleated RBC (0.0-0.012) X10*3/uL Nucleated RBC % (auto) (0.0-0.2) /100WBC Smear Tech's Comments PT (10.8-13.0) SEC INR (0.9-1.1) APTT (24.1-38.0) SEC Sodium (135-145) mmol/L Potassium (3.3-5.1) mmol/L Chloride (96-108) mmol/L Carbon Dioxide (22-29) mmol/L Anion Gap (12-20) BUN (9-16) mg/dL Creatinine (0.5-1.4) mg/dL Estim Creat Clear Calc Estimated GFR Random Glucose (60-115) mg/dL Calcium (8.4-10.2) mg/dL Troponin I High Sens 10.6 (<3.5-35.0) ng/L B-Natriuretic Peptide 566 H (<100) pg/mL Lipase (8-78) U/L Procalcitonin ng/mL COVID-19 ([facility]) (Negative) COVID-19 Clin Com Discharge Plan Discharge Clinical Impression: Pleural effusion, Bronchitis Patient Disposition: Home, Self-Care Instructions: Acute Bronchitis (ED), Pleural Effusion (ED) Additional Instructions: Your chest x-ray showed fluid around your left lung. This is not new and was present on prior imaging. This in combination with acute bronchitis is what is likely causing your shortness of breath. Recommend continuing Lasix. Start taking tomorrow morning, you were given dose in the ER today. Take the other medications as prescribed. Follow up with your Shafting Cleaner next week as scheduled. If you have continued symptoms you may need to get this fluid drained. If you have worsening shortness of breath or develop any other concerning symptoms call 911 or come back to the ER for further evaluation. Prescriptions: New amoxicillin-pot clavulanate [Augmentin] 875-125 mg tablet 1 tab PO BID Qty: 14 RF: 0 prednisone 20 mg tablet 40 mg PO DAILY Qty: 10 RF: 0 Mucinex 1,200 mg tablet extended release 12hr 1,200 mg PO BID Qty: 10 RF: 0 furosemide [Lasix] 20 mg tablet 20 mg PO DAILY Qty: 7 RF: 0 potassium chloride 20 mEq tablet extended release 20 meq PO DAILY Qty: 7 RF: 0 No Action omeprazole 20 mg capsule,delayed release(DR/EC) 20 mg PO BID RF: 0 Anoro Ellipta 62.5-25 mcg/actuation blister with device 1 puff PO DAILY RF: 0 Entresto 24-26 mg tablet 1 tab PO BID RF: 0 ipratropium-albuterol 0.5 mg-3 mg(2.5 mg base)/3 mL Solution For Nebulization 3 ml INHALATION QID PRN (Reason: Shortness Of Breath) RF: 0 warfarin [Jantoven] 7.5 mg Tablet 7.5 mg PO SUWE RF: 0 metoprolol succinate 200 mg Tablet Extended Release 24 Hr 300 mg PO QPM RF: 0 tamsulosin 0.4 mg Capsule 0.4 mg PO QAM RF: 0 warfarin [Jantoven] 5 mg Tablet 5 mg PO MOTUTHFRSA RF: 0 digoxin 125 mcg (0.125 mg) Tablet 125 mcg PO DAILY RF: 0 ampicillin 500 mg capsule 500 mg PO TID 7 Days Qty: 21 RF: 0 cephalexin [Keflex] 500 mg capsule 500 mg PO QID Qty: 28 RF: 0 cefuroxime axetil 250 mg tablet 250 mg PO BID Qty: 14 RF: 0 tramadol 50 mg tablet 50 mg PO Q6H PRN (Reason: pain (scale score 1-3)) Qty: 7 RF: 0 trimethoprim 100 mg tablet 100 mg PO Q12H 5 Days Qty: 10 RF: 0 cefuroxime axetil 250 mg tablet 250 mg PO BID 7 Days Qty: 14 RF: 0 finasteride 5 mg tablet 5 mg PO DAILY 90 Days Qty: 90 RF: 1
--- NOTE | 2020-11-24 12:03 | PC.NURSE ---
Patient comes to ER for evaluation of sob that has gotten worse over the last week, especially with exertion. Pt is states he has been cough as well. Pt was started on lasix but has not taken it today. breath sounds are coarse bilaterally
[2020-11-24 12:15] VITALS: BP 135/65; PULSE 55; RESP 18; O2SAT 100
[2020-11-24 12:46] LABS: Basophils Percent Auto 0.6 % (0-2); Eosinophils Absolute Auto 0.1 X10*3/uL (0.0-0.4); Hematocrit 35.9 % (42-52); Hemoglobin 11.6 g/dl (14.0-18.0); Imm Gran Abs Auto 0.02 X10*3/uL (0.00-0.03); Imm Gran Pct Auto 0.3 % (0.0-0.4); Lymphocytes Absolute Auto 0.4 X10*3/uL (1.2-4.9); Lymphocytes Percent Auto 6.3 % (20-40); MANUAL DIFF FLAG SCAN; Mean Corpuscular HGB Conc 32.3 g/dl (31.0-36.0); Mean Corpuscular Hemoglobin 32.2 pg (27.0-33.0); Mean Corpuscular Volume 99.7 fL (80-98); Mean Platelet Volume 9.4 fL (9.4-12.4); Monocytes Absolute Auto 0.4 X10*3/uL (0.1-1.2); Monocytes Percent Auto 6.2 % (2-11); Neutrophils Absolute Auto 5.8 X10*3/uL (2.0-8.3); Neutrophils Percent Auto 85.6 % (45-73); Platelet Count 251 X10*3/uL (160-400); Red Cell Distribution Width 13.5 % (11.0-16.0); SCAN SMEAR FLAG 1; White Blood Count 6.8 X10*3/uL (4.8-10.8)
[2020-11-24 12:53] LABS: INTERNATIONAL NORM RATIO 2.8 (0.9-1.1); Prothrombin Time 33.3 SEC (10.8-13.0)
[2020-11-24 12:57] LABS: Partial Thromboplastin Time 46.7 SEC (24.1-38.0)
[2020-11-24 13:06] LABS: COVID-19 Test Negative (Negative)
[2020-11-24 13:19] LABS: Anion Gap 13 (12-20); Blood Urea Nitrogen 19 mg/dL (9-16); Calcium 8.3 mg/dL (8.4-10.2); Carbon Dioxide 24 mmol/L (22-29); Chloride 107 mmol/L (96-108); Creatinine Clr Calc Pharmacy 54.9; Estimated Glomerular Filt Rate > 60; Glucose Random 115 mg/dL (60-115); Lipase 10 U/L (8-78); Potassium 3.7 mmol/L (3.3-5.1); Sodium 140 mmol/L (135-145)
[2020-11-24 13:22] LABS: SLIDE REVIEW VERIFIED
[2020-11-24 13:22] LABS: Troponin-I High Sensitivity 10.1 ng/L (<3.5-35.0)
[2020-11-24 13:25] LABS: B Type Natriuretic Peptide 566 pg/mL (<100)
[2020-11-24 13:59] VITALS: BP 142/68; PULSE 79; RESP 17; O2SAT 98
--- NOTE | 2020-11-24 14:06 | PC.NURSE ---
Patient ambulated to the bathroom and back as well as in the hallway to nurses station then back to his room. Pt states he feels a little short of breath but not like he was earlier.
[2020-11-24] MEDS: Furosemide 40 MG TABLET PO (14:41)
[2020-11-24] MEDS: guaiFENesin LA 600 MG TAB.ER.12H 1200 MG PO (14:41)
[2020-11-24 15:33] LABS: Procalcitonin 0.08 ng/mL
[2020-11-24 16:20] LABS: Troponin-I High Sensitivity 10.6 ng/L (<3.5-35.0)
[2020-11-24 16:45] VITALS: BP 134/66; PULSE 82; RESP 17; O2SAT 97
== END 2020-11-24 17:00 | disposition home or self-care (01) ==
PROVIDERS: Physician Assistant; Emergency Provider Emergency Medicine; PCP Physician Assistant Medical
DX: J20.9 Acute bronchitis, unspecified (principal); J90 Pleural effusion, not elsewhere classified; Z20.822 Contact with and (suspected) exposure to COVID-19; I11.0 Hypertensive heart disease with heart failure; I50.9 Heart failure, unspecified; I48.91 Unspecified atrial fibrillation; Z95.0 Presence of cardiac pacemaker; Z79.01 Long term (current) use of anticoagulants
CPT/HCPCS: 36415; 71045; 80048; 83690; 83880; 84145; 84484; 85025; 85610; 85730; 87635; 93005; 99284

== ENCOUNTER 2020-11-29 08:00 | Emergency (ER) | payer MEDICARE, SELFPAY ==
--- NOTE | ~2020-11-29 | XR_ITS ---
EXAMINATION: XR CHEST CLINICAL INFORMATION: Rib pain. COMPARISON: Chest radiograph done on 11/24/2020. TECHNIQUE: 2 views of the chest were obtained. FINDINGS: [id number] volume left-sided pleural effusion, and/or thickening, and associated collapse consolidation of the left lower lobe of the lung appear relatively unchanged since prior study dated 11/24/2020. The aerated left lung and the entire right lung fierro are clear, unchanged. AICD device is present, appear intact. The heart size is within normal limits. No definite evidence of any displaced rib fracture or osseous destruction. XR/XR chest 2V IMPRESSION: Persistent stable [id number] volume left-sided pleural effusion and/or thickening, and associated collapse consolidation of left lower lobe of the lung appear stable since 11/24/2020. No new abnormalities.
[2020-11-29 09:01] VITALS: BP 129/52; PULSE 70; RESP 17; TEMP 36.3; O2SAT 99; BMI 20.5
--- NOTE | 2020-11-29 09:57 | ED_ITS ---
HPI - General Adult General Chief complaint: General Medical Stated complaint: fall Time Seen by Provider: 11/29/20 08:54 History of Present Illness HPI narrative: Patient complains of right rib pain after a fall 1 week ago where he hit his right ribs into the side of a cabinet and he continues to be mildly uncomfortable, no difficulty breathing no abdominal pain no shortness of breath no abdominal pain no other injury Related Data Home Medications Medication Instructions Recorded Confirmed Anoro Ellipta 1 puff PO DAILY 04/01/20 05/04/20 Entresto 1 tab PO BID 04/01/20 04/15/20 digoxin 125 mcg PO DAILY 04/01/20 04/15/20 ipratropium-albuterol 3 ml INHALATION QID PRN 04/01/20 04/15/20 metoprolol succinate 300 mg PO QPM 04/01/20 04/15/20 omeprazole 20 mg PO BID 04/01/20 05/04/20 tamsulosin 0.4 mg PO QAM 04/01/20 04/15/20 warfarin [Jantoven] 5 mg PO MOTUTHFRSA 04/01/20 04/15/20 warfarin [Jantoven] 7.5 mg PO SUWE 04/01/20 04/15/20 Previous Rx's Medication Instructions Recorded tramadol 50 mg PO Q6H PRN #7 tab 05/04/20 trimethoprim 100 mg PO Q12H 5 Days #10 tab 05/04/20 ampicillin 500 mg PO TID 7 Days #21 cap 05/09/20 cefuroxime axetil 250 mg PO BID 7 Days #14 tab 05/09/20 cephalexin [Keflex] 500 mg PO QID #28 cap 05/20/20 finasteride 5 mg tablet 5 mg PO DAILY 90 Days #90 tab 05/27/20 cefuroxime axetil 250 mg PO BID #14 tab 11/14/20 amoxicillin-pot clavulanate 1 tab PO BID #14 tab 11/24/20 [Augmentin] furosemide [Lasix] 20 mg PO DAILY #7 tab 11/24/20 guaifenesin [Mucinex] 1,200 mg PO BID #10 tab 11/24/20 potassium chloride 20 meq PO DAILY #7 tab 11/24/20 prednisone 40 mg PO DAILY #10 tab 11/24/20 Allergies Allergy/AdvReac Type Severity Reaction Status Date / Time No Known Allergies Allergy Unknown NONE Verified 08/20/20 13:49 Review of Systems Review of Systems: Positive for right rib pain worse with movement Negatives are no fever no chills no dizziness no weakness no fainting no feeling faint no exertional chest pain no shortness of breath no palpitations no sweating, no abdominal pain no nausea or vomiting no leg pain no calf tenderness or swelling no leg swelling no skin rash Yes all other systems are reviewed and are negative PMFSH Past Medical History Source: nursing notes reviewed Medical History Atrial fibrillation (Unknown) BPH (benign prostatic hyperplasia) (Unknown) CHF (congestive heart failure) (Unknown) COPD (chronic obstructive pulmonary disease) (Unknown) Diabetes (Unknown) Esophageal cancer (Unknown) HTN (hypertension) (Unknown) Hx of cardiomyopathy Lab test negative for COVID-19 virus Pacemaker UTI (urinary tract infection) (Unknown) Surgical History AICD (automatic cardioverter/defibrillator) present (Unknown) H/O colonoscopy History of esophagectomy History of permanent cardiac pacemaker placement Hx of cardiac catheterization Hx of cataract surgery Hx of left inguinal hernia repair Hx of shoulder surgery Family History Family History Father No problems noted. Mother No problems noted. Social History Social History Household Members: Spouse Housing: House Do you presently have visiting nurse or other home services: No Alcohol intake: never Patient Tobacco Use Status: Never used Tobacco Second Hand Smoke Exposure: No service: No Current occupational status: retired Physical Exam Vital Signs: Vital Signs: Last Vital Signs Temp 97.3 F 11/29/20 09:01 Pulse 70 11/29/20 09:01 Resp 17 11/29/20 09:01 BP 129/52 L 11/29/20 09:01 Pulse Ox 99 11/29/20 09:01 Body Mass Index 20.5 General appearance no acute distress Head is normocephalic atraumatic Neck is supple and nontender The chest wall has easily reproducible right lateral and mid rib tenderness, pain is worse with a deep breath movement and palpation The chest is clear to auscultation bilateral Heart no murmur The abdomen is soft nontender Extremities full range of motion x4 The skin no rash Course Course Course Narrative: X-rays of chest and ribs were negative Patient is advised that it is possible a small crack was missed by the x-ray and he is discharged with no difficulty breathing no evidence of pneumothorax Discharge Plan Discharge Clinical Impression: Rib injury, Pleural effusion Patient Disposition: Home, Self-Care Additional Instructions: X-ray did not show any obvious broken rib X-rays miss many fractures so it is possible you have a fracture not seen by x- ray so be careful about falling X-ray also showed a pleural effusion, you told me you are already following up with her doctor about this and it is unchanged since previous visit Return any time any changed or worse condition or any concerns Prescriptions: No Action omeprazole 20 mg capsule,delayed release(DR/EC) 20 mg PO BID RF: 0 Anoro Ellipta 62.5-25 mcg/actuation blister with device 1 puff PO DAILY RF: 0 Entresto 24-26 mg tablet 1 tab PO BID RF: 0 ipratropium-albuterol 0.5 mg-3 mg(2.5 mg base)/3 mL Solution For Nebulization 3 ml INHALATION QID PRN (Reason: Shortness Of Breath) RF: 0 warfarin [Jantoven] 7.5 mg Tablet 7.5 mg PO SUWE RF: 0 metoprolol succinate 200 mg Tablet Extended Release 24 Hr 300 mg PO QPM RF: 0 tamsulosin 0.4 mg Capsule 0.4 mg PO QAM RF: 0 warfarin [Jantoven] 5 mg Tablet 5 mg PO MOTUTHFRSA RF: 0 digoxin 125 mcg (0.125 mg) Tablet 125 mcg PO DAILY RF: 0 ampicillin 500 mg capsule 500 mg PO TID 7 Days Qty: 21 RF: 0 cephalexin [Keflex] 500 mg capsule 500 mg PO QID Qty: 28 RF: 0 cefuroxime axetil 250 mg tablet 250 mg PO BID Qty: 14 RF: 0 tramadol 50 mg tablet 50 mg PO Q6H PRN (Reason: pain (scale score 1-3)) Qty: 7 RF: 0 trimethoprim 100 mg tablet 100 mg PO Q12H 5 Days Qty: 10 RF: 0 cefuroxime axetil 250 mg tablet 250 mg PO BID 7 Days Qty: 14 RF: 0 amoxicillin-pot clavulanate [Augmentin] 875-125 mg tablet 1 tab PO BID Qty: 14 RF: 0 prednisone 20 mg tablet 40 mg PO DAILY Qty: 10 RF: 0 Mucinex 1,200 mg tablet extended release 12hr 1,200 mg PO BID Qty: 10 RF: 0 furosemide [Lasix] 20 mg tablet 20 mg PO DAILY Qty: 7 RF: 0 potassium chloride 20 mEq tablet extended release 20 meq PO DAILY Qty: 7 RF: 0 finasteride 5 mg tablet 5 mg PO DAILY 90 Days Qty: 90 RF: 1 Interventions: ED Discharge Assessment Last Done: 11/29/20 10:31 Discharge Date/Time: 11/29/20 10:31
== END 2020-11-29 10:31 | disposition home or self-care (01) ==
PROVIDERS: Emergency Provider Emergency Medicine Emergency Medical Services; PCP Physician Assistant Medical
DX: S29.9XXA Unspecified injury of thorax, initial encounter (principal); J90 Pleural effusion, not elsewhere classified; I48.91 Unspecified atrial fibrillation; J44.9 Chronic obstructive pulmonary disease, unspecified; I11.0 Hypertensive heart disease with heart failure; I50.9 Heart failure, unspecified; W19.XXXA Unspecified fall, initial encounter; Y93.9 Activity, unspecified; Y92.9 Unspecified place or not applicable; Y99.9 Unspecified external cause status; Z79.01 Long term (current) use of anticoagulants; Z79.899 Other long term (current) drug therapy; Z95.0 Presence of cardiac pacemaker
CPT/HCPCS: 71046; 99283

== ENCOUNTER 2020-11-30 10:26 | Outpatient (REF) | payer MEDICARE, SELFPAY ==
[2020-11-30 11:58] LABS: Estimated Average Glucose 120 mg/dL; Hemoglobin A1c % 5.8 %
[2020-11-30 12:27] LABS: Syphilis Screen Nonreactive (Nonreactive)
[2020-11-30 12:30] LABS: Erythrocyte Sedimentation Rate 19 MM/HR (0-15)
[2020-11-30 12:47] LABS: Folate 6.7 ng/mL (> or = 4.0); Vitamin B12 1406 pg/mL (200-900)
[2020-12-01 21:23] LABS: Lyme Abs Screen <0.90 index
[2020-12-02 13:57] LABS: IgA 143 mg/dL (70-320); IgG 763 mg/dL (600-1540); IgM 71 mg/dL (50-300)
== END 2020-11-30 10:27 | disposition home or self-care (01) ==
LOC: HO.LAB 10:26
PROVIDERS: Visit Provider Psychiatry & Neurology Neurology
DX: G62.9 Polyneuropathy, unspecified (principal)
CPT/HCPCS: 36415; 82607; 82746; 82784; 83036; 85652; 86334; 86617; 86618; 86780

== ENCOUNTER 2020-12-28 14:45 | Inpatient (IN) | payer MEDICARE, SELFPAY ==
--- NOTE | ~2020-12-28 | XR_ITS ---
EXAMINATION: XR CHEST CLINICAL INFORMATION: Dyspnea. COMPARISON: None TECHNIQUE: 2 views of the chest were obtained. FINDINGS: The lungs are hyperinflated with mild blunting of left CP angle and elevated left hemidiaphragm.. Heart size and pulmonary vascularity is normal.. There are pacer electrodes in the right atrium and right ventricle. There is mild scoliosis of dorsal spine. No lytic process. XR/XR chest 2V IMPRESSION: Hyperinflated lungs without acute process.
[2020-12-28 14:51] VITALS: BP 92/26; PULSE 70; RESP 17; TEMP 36.4; O2SAT 99; BMI 17.7
--- NOTE | 2020-12-28 16:43 | ED.SOB ---
HPI - SOB/Dyspnea General Chief Complaint: Dyspnea Stated Complaint: Difficulty Breathing Time Seen by Provider: 12/28/20 15:42 Source: patient Mode of arrival: ambulatory Limitations: no limitations History of Present Illness HPI Narrative: Patient history of congestive heart failure diagnosed 12/07 , esophageal cancer status post surgery complaining of increased shortness of breath for last 1 month PCP did the workup showed elevated BNP 566 and started on Lasix patient did not feel much different for last 1 week more short of breath even while doing little activities. Patient denies any chest pain no leg swelling. No fever or chills no cough Related Data Home Medications Medication Instructions Recorded Confirmed Anoro Ellipta 1 puff PO DAILY 04/01/20 12/28/20 Entresto 1 tab PO BID 04/01/20 12/28/20 digoxin 125 mcg PO DAILY 04/01/20 12/28/20 ipratropium-albuterol 3 ml INHALATION QID PRN 04/01/20 12/28/20 metoprolol succinate 200 mg PO BEDTIME 04/01/20 12/28/20 omeprazole 20 mg PO BID 04/01/20 12/28/20 tamsulosin 0.4 mg PO QAM 04/01/20 12/28/20 warfarin [Jantoven] 5 mg PO BEDTIME 04/01/20 12/28/20 Previous Rx's Medication Instructions Recorded finasteride 5 mg tablet 5 mg PO DAILY 90 Days #90 tab 05/27/20 furosemide [Lasix] 20 mg PO DAILY #7 tab 11/24/20 potassium chloride 20 meq PO DAILY #7 tab 11/24/20 Allergies Allergy/AdvReac Type Severity Reaction Status Date / Time No Known Allergies Allergy Unknown NONE Verified 12/28/20 14:51 Review of Systems Review of Systems: Yes all other systems are reviewed and are negative [facility] Past Medical History Medical History Atrial fibrillation (Unknown) BPH (benign prostatic hyperplasia) (Unknown) CHF (congestive heart failure) (Unknown) COPD (chronic obstructive pulmonary disease) (Unknown) Diabetes (Unknown) Esophageal cancer (Unknown) HTN (hypertension) (Unknown) Hx of cardiomyopathy Lab test negative for COVID-19 virus Pacemaker UTI (urinary tract infection) (Unknown) Surgical History AICD (automatic cardioverter/defibrillator) present (Unknown) H/O colonoscopy History of esophagectomy History of permanent cardiac pacemaker placement Hx of cardiac catheterization Hx of cataract surgery Hx of left inguinal hernia repair Hx of shoulder surgery Family History Family History Father No problems noted. Mother No problems noted. Social History Social History Household Members: Spouse Housing: House Do you presently have visiting nurse or other home services: No Alcohol intake: former Patient Tobacco Use Status: Former Tobacco user Second Hand Smoke Exposure: No Use of substances other than those prescribed or required for medical reasons: No Advance Directives: No Advance Directives Information Provided: Yes service: No Current occupational status: retired Physical Exam Vital Signs: Vital Signs: Last Vital Signs Temp 97.6 F 12/28/20 14:51 Pulse 79 12/28/20 21:20 Resp 16 12/28/20 23:19 BP 122/53 L 12/28/20 21:20 Pulse Ox 100 12/28/20 21:20 Body Mass Index 17.7 Appearance: Alert. Oriented X3. No acute distress. Thin cachectic Eyes: PERRLA, No Nystagmus ENT: Pharynx normal. Oral Mucosa moist Neck: Normal inspection. Neck supple. CVS: Normal heart rate and rhythm. Pulses normal. Respiratory: No respiratory distress. Equal air entry bilateral, no wheezing/rales/rhonchi Abdomen: Soft and nontender. Bowel sounds are present, no mass palpable, no CVA tenderness Skin: Skin warm and dry. Normal skin color. Normal skin turgor. Extremities: No lower extremity edema. No calf tenderness Neuro: Oriented X 3. No motor deficit. 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 Result diagrams: 12/28/20 17:12 12/28/20 17:12 Labs: Lab Results 12/28/20 12/28/20 12/28/20 Range/Units 17:12 17:12 17:12 WBC 3.7 L (4.8-10.8) X10*3/uL RBC 3.21 L (4.60-5.80) X10*6/uL Hgb 10.3 L (14.0-18.0) g/dl Hct 32.0 L (42-52) % MCV 99.7 H (80-98) fL MCH 32.1 (27.0-33.0) pg MCHC 32.2 (31.0-36.0) g/dl RDW 15.5 (11.0-16.0) % Plt Count 115 L D (160-400) X10*3/uL MPV 10.5 (9.4-12.4) fL Immature Gran % (Auto) 0.5 H (0.0-0.4) % Neut % (Auto) 76.9 H (45-73) % Lymph % (Auto) 11.2 L (20-40) % [place] % (Auto) 10.9 (2-11) % Eos % (Auto) 0.5 (0-4) % Baso % (Auto) 0.0 (0-2) % Lymph # (Auto) 0.4 L (1.2-4.9) X10*3/uL [place] # (Auto) 0.4 (0.1-1.2) X10*3/uL Eos # (Auto) 0.0 (0.0-0.4) X10*3/uL Baso # (Auto) 0.0 (0.0-0.2) X10*3/uL Abs Immat Gran (auto) 0.02 (0.00-0.03) X10*3/uL Absolute Neuts (auto) 2.8 (2.0-8.3) X10*3/uL Absolute Nucleated RBC 0.000 (0.0-0.012) X10*3/uL Nucleated RBC % (auto) 0.0 (0.0-0.2) /100WBC PT 34.3 H (9.9-13.0) SEC INR 2.9 H (0.9-1.1) APTT 31.2 (24.1-38.0) SEC Sodium 141 (135-145) mmol/L Potassium 3.7 (3.3-5.1) mmol/L Chloride 108 (96-108) mmol/L Carbon Dioxide 21 L (22-29) mmol/L Anion Gap 16 (12-20) BUN 43 H D (9-16) mg/dL Creatinine 1.56 H (0.5-1.4) mg/dL Estim Creat Clear Calc 30.1 Estimated GFR 43 Random Glucose 137 H (60-115) mg/dL Calcium 8.1 L (8.4-10.2) mg/dL Total Bilirubin 1.1 H (0.0-1.0) mg/dL Direct Bilirubin 0.5 (0.0-0.5) mg/dL AST 20 D (5-37) U/L ALT 9 (0-40) U/L Alkaline Phosphatase 87 (39-117) U/L Troponin I High Sens (<3.5-35.0) ng/L B-Natriuretic Peptide (<100) pg/mL Total Protein 5.8 L D (6.5-8.0) g/dL Albumin 3.3 L (3.5-5.0) g/dL 12/28/20 Range/Units 17:12 WBC (4.8-10.8) X10*3/uL RBC (4.60-5.80) X10*6/uL Hgb (14.0-18.0) g/dl Hct (42-52) % MCV (80-98) fL MCH (27.0-33.0) pg MCHC (31.0-36.0) g/dl RDW (11.0-16.0) % Plt Count (160-400) X10*3/uL MPV (9.4-12.4) fL Immature Gran % (Auto) (0.0-0.4) % Neut % (Auto) (45-73) % Lymph % (Auto) (20-40) % [place] % (Auto) (2-11) % Eos % (Auto) (0-4) % Baso % (Auto) (0-2) % Lymph # (Auto) (1.2-4.9) X10*3/uL [place] # (Auto) (0.1-1.2) X10*3/uL Eos # (Auto) (0.0-0.4) X10*3/uL Baso # (Auto) (0.0-0.2) X10*3/uL Abs Immat Gran (auto) (0.00-0.03) X10*3/uL Absolute Neuts (auto) (2.0-8.3) X10*3/uL Absolute Nucleated RBC (0.0-0.012) X10*3/uL Nucleated RBC % (auto) (0.0-0.2) /100WBC PT (9.9-13.0) SEC INR (0.9-1.1) APTT (24.1-38.0) SEC Sodium (135-145) mmol/L Potassium (3.3-5.1) mmol/L Chloride (96-108) mmol/L Carbon Dioxide (22-29) mmol/L Anion Gap (12-20) BUN (9-16) mg/dL Creatinine (0.5-1.4) mg/dL Estim Creat Clear Calc Estimated GFR Random Glucose (60-115) mg/dL Calcium (8.4-10.2) mg/dL Total Bilirubin (0.0-1.0) mg/dL Direct Bilirubin (0.0-0.5) mg/dL AST (5-37) U/L ALT (0-40) U/L Alkaline Phosphatase (39-117) U/L Troponin I High Sens 7.1 (<3.5-35.0) ng/L B-Natriuretic Peptide 201 H (<100) pg/mL Total Protein (6.5-8.0) g/dL Albumin (3.5-5.0) g/dL ECG Data Attestation: I personally reviewed and interpreted this ECG as follows: Interpretation: Heart rate 86 beats per minute, Wide QRS complex with frequent ventricular paced complexes no acute ST T wave changes no acute ischemia Discharge Plan Discharge Clinical Impression: Weakness Acute renal failure (ARF) Qualifiers: Acute renal failure type: with acute tubular necrosis Qualified Code(s): N17.0 - Acute kidney failure with tubular necrosis Congestive heart failure Qualifiers: Heart failure type: combined systolic and diastolic Heart failure chronicity: acute on chronic Qualified Code(s): I50.43 - Acute on chronic combined systolic (congestive) and diastolic (congestive) heart failure Patient Disposition: Admitted As Inpatient
[2020-12-28 16:52] VITALS: BP 121/46; PULSE 73; RESP 17; O2SAT 99
--- NOTE | 2020-12-28 16:59 | ECG_ITS ---
Test Reason : DYSPNEA Blood Pressure : / mmHG Vent. Rate : 086 BPM Atrial Rate : 086 BPM P-R Int : 000 ms QRS Dur : 148 ms QT Int : 434 ms P-R-T Axes : 000 087 255 degrees QTc Int : 519 ms Wide QRS rhythm with frequent ventricular-paced complexes and Premature ventricular complexes in a pattern of bigeminy Abnormal ECG When compared with ECG of 24-NOV-2020 12:14, Premature ventricular complexes are present Vent. rate has increased BY 11 BPM Referred By: Joe Cassidy Electronically Signed By:Good Buitrago
[2020-12-28 17:23] LABS: MANUAL DIFF FLAG NO
[2020-12-28 17:25] LABS: Eosinophils Percent Auto 0.5 % (0-4); Hemoglobin 10.3 g/dl (14.0-18.0); Imm Gran Abs Auto 0.02 X10*3/uL (0.00-0.03); Imm Gran Pct Auto 0.5 % (0.0-0.4); Lymphocytes Absolute Auto 0.4 X10*3/uL (1.2-4.9); Lymphocytes Percent Auto 11.2 % (20-40); Mean Corpuscular HGB Conc 32.2 g/dl (31.0-36.0); Mean Corpuscular Hemoglobin 32.1 pg (27.0-33.0); Mean Corpuscular Volume 99.7 fL (80-98); Mean Platelet Volume 10.5 fL (9.4-12.4); Monocytes Absolute Auto 0.4 X10*3/uL (0.1-1.2); Monocytes Percent Auto 10.9 % (2-11); Neutrophils Absolute Auto 2.8 X10*3/uL (2.0-8.3); Neutrophils Percent Auto 76.9 % (45-73); Platelet Count 115 X10*3/uL (160-400); Red Blood Count 3.21 X10*6/uL (4.60-5.80); Red Cell Distribution Width 15.5 % (11.0-16.0); White Blood Count 3.7 X10*3/uL (4.8-10.8)
[2020-12-28 17:35] LABS: INTERNATIONAL NORM RATIO 2.9 (0.9-1.1); Prothrombin Time 34.3 SEC (9.9-13.0)
[2020-12-28 17:38] LABS: Partial Thromboplastin Time 31.2 SEC (24.1-38.0)
[2020-12-28 18:00] LABS: B Type Natriuretic Peptide 201 pg/mL (<100); Troponin-I High Sensitivity 7.1 ng/L (<3.5-35.0)
[2020-12-28 18:05] LABS: Alanine Aminotransferase 9 U/L (0-40); Albumin Level 3.3 g/dL (3.5-5.0); Alkaline Phosphatase 87 U/L (39-117); Anion Gap 16 (12-20); Aspartate Amino Transferase 20 U/L (5-37); Bilirubin Direct 0.5 mg/dL (0.0-0.5); Bilirubin Total 1.1 mg/dL (0.0-1.0); Blood Urea Nitrogen 43 mg/dL (9-16); Calcium 8.1 mg/dL (8.4-10.2); Carbon Dioxide 21 mmol/L (22-29); Chloride 108 mmol/L (96-108); Creatinine Clr Calc Pharmacy 30.1; Estimated Glomerular Filt Rate 43; Glucose Random 137 mg/dL (60-115); Potassium 3.7 mmol/L (3.3-5.1); Sodium 141 mmol/L (135-145); Total Protein 5.8 g/dL (6.5-8.0)
[2020-12-28 19:10] VITALS: BP 116/52; PULSE 70; RESP 16; O2SAT 100
[2020-12-28] MEDS: 0.9 % Sodium Chloride 1,000 ML 125 ML IVCONT (19:27)
[2020-12-28 21:20] VITALS: BP 122/53; PULSE 79; RESP 14; O2SAT 100
--- NOTE | 2020-12-28 21:21 | PC.NURSE ---
Pt ambulating to the bathroom with a steady gait, denies SOB while ambulating. Pt denies pain/discomfort/SOB at this time. Pt speaking full sentences in NAD, O2 sat 100% on RA. VSS. Pt resting in bed watching TV. IVF infusing per MAR. Pt aware of plan, awaiting bed assignment.
--- NOTE | 2020-12-28 21:41 | PHA.MEDREC ---
Pharmacy Consult ? Medication Reconciliation Pharmacy has completed the medication reconciliation.
[2020-12-28] MEDS: Heparin Sodium,Porcine 5,000 UNIT/ML VIAL 5000 UNIT SUBCUT (22:23)
[2020-12-28] MEDS: methylPREDNISolone Sod Succ 40 MG/ML VIAL IVPUSH (22:23)
[2020-12-28] MEDS: Lactated Ringers 1,000 ML 100 ML IVCONT (22:23)
[2020-12-28 23:19] VITALS: RESP 16
--- NOTE | 2020-12-28 23:20 | PC.NURSE ---
Pt requesting food/drink, provided with tea/francesco crackers per request.
[2020-12-29] VITALS (14 sets, daily range): BP systolic 100–114; BP diastolic 43–69; PULSE 28–87; RESP 16–20; TEMP 35.8–36.6; O2SAT 95–100
[2020-12-29] MEDS: 0.9 % Sodium Chloride Flush 3 ML SYRINGE IVFLUSH ×3 (00:12→19:00)
[2020-12-29 01:33] LABS: COVID-19 Test Negative (Negative)
--- NOTE | 2020-12-29 04:50 | PC.NURSE ---
Pt sleeping comfortably in bed, noted to have brief periods of bradycardia while sleeping. HR noted to decrease as low as 26, pacemaker firing, pt recovering quickly, reporting no adverse symptoms. VSS at this time, BP WNL. Pt denies pain/SOB, offers no complaints at this time. Call heath within reach, continue to monitor.
--- NOTE | 2020-12-29 05:39 | PM.IMHP ---
History of Present Illness Date of Service: 12/28/20 Chief Complaint: Shortness of breath This is an 85-year-old male with past medical history of COPD, CHF status post AICD, AFib on Coumadin, diabetes, history of esophageal cancer status post esophagectomy currently in remission, HTN, sick sinus syndrome, who presents to the hospital with complaints of shortness of breath. 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 He tried using his nebulizer with no relief. Denies any lower extremity edema, no orthopnea no PND. No fever or chills, no recent travel or sick contacts, no urinary symptoms, no abdominal pain nausea or vomiting, no diarrhea or constipation. Patient also says that he is active and has no sedentary lifestyle. On arrival to the ED patient hemodynamically stable with no significant abnormal vitals Labs are significant for WBC count of 3.7, hemoglobin of 10.3 which is around his baseline, PT of 34.4, INR of 2.9, BUN of 43, creatinine of 1.56 with a baseline around 0.98, total bili of 1.1, BNP of 201, of the ministry 0.3 chest x-ray shows hyperinflated lungs without acute process acute process Patient will be admitted for further management of COPD exacerbation Past medical history as below long confirm a patient Review of Systems Review of Systems: Yes all other systems are reviewed and are negative [facility] Medical History Atrial fibrillation (Unknown) BPH (benign prostatic hyperplasia) (Unknown) CHF (congestive heart failure) (Unknown) COPD (chronic obstructive pulmonary disease) (Unknown) Diabetes (Unknown) Esophageal cancer (Unknown) HTN (hypertension) (Unknown) Hx of cardiomyopathy Lab test negative for COVID-19 virus Pacemaker UTI (urinary tract infection) (Unknown) Family History Father No problems noted. Mother No problems noted. Surgical History AICD (automatic cardioverter/defibrillator) present (Unknown) H/O colonoscopy History of esophagectomy History of permanent cardiac pacemaker placement Hx of cardiac catheterization Hx of cataract surgery Hx of left inguinal hernia repair Hx of shoulder surgery Social History Household Members: Spouse Housing: House Do you presently have visiting nurse or other home services: No Alcohol intake: former Patient Tobacco Use Status: Former Tobacco user Second Hand Smoke Exposure: No Use of substances other than those prescribed or required for medical reasons: No Advance Directives: No Advance Directives Information Provided: Yes service: No Current occupational status: retired [employer] Allergies Allergy/AdvReac Type Severity Reaction Status Date / Time No Known Allergies Allergy Unknown NONE Verified 12/28/20 14:51 Active Medications: Current Medications Generic Name Dose Route Start Last Admin Trade Name Freq PRN Reason Stop Dose Admin Acetaminophen 650 mg 12/28/20 21:30 Acetaminophen 325 Mg Tablet PO Q6H PRN Pain, Mild (Pain Scale 1-3) Albuterol/Ipratropium 3 ml 12/29/20 08:00 Albuterol/Iprat 2.5/0.5mg 3 Ml Ampul.Neb INHALE RQ4H WHILE AWAKE ANDREZ Albuterol/Ipratropium 3 ml 12/28/20 21:30 Albuterol/Iprat 2.5/0.5mg 3 Ml Ampul.Neb INHALE RQ4H PRN Shortness of Breath/Wheezing Docusate Sodium 100 mg 12/28/20 21:30 Docusate Sodium 100 Mg Capsule PO DAILY PRN Constipation Heparin Sodium (Porcine) 5,000 unit 12/28/20 21:30 12/28/20 22:23 Heparin Sodium,Porcine 5,000 Unit/Ml Vial SUBCUT 5,000 unit Q12H ANDREZ Administration Lactated Ringer's 1,000 mls @ 100 mls/hr 12/28/20 21:45 12/28/20 22:23 Lr IVCONT 100 mls/hr .Q10H ANDREZ Administration Methylprednisolone Sodium Succinate 40 mg 12/28/20 21:30 12/28/20 22:23 Methylprednisolone Sod Succ 40 Mg/Ml Vial IVPUSH 40 mg Q12H ANDREZ Administration Pharmacy Consult 1 each 12/28/20 21:16 Consult Rx Perform Med Rec MISCELLANE ONCE PRN Consult order Sodium Chloride 3 ml 12/29/20 00:00 12/29/20 00:12 0.9 % Sodium Chloride Flush 3 Ml Syringe IVFLUSH 3 ml [facility] Administration Home Medications Medication Instructions Recorded Confirmed Last Taken Type Anoro Ellipta 1 puff PO DAILY 04/01/20 12/28/20 12/28/20 History Entresto 1 tab PO BID 04/01/20 12/28/20 12/28/20 History digoxin 125 mcg PO DAILY 04/01/20 12/28/20 12/28/20 History ipratropium-albuterol 3 ml INHALATION QID PRN 04/01/20 12/28/20 Unknown History metoprolol succinate 200 mg PO BEDTIME 04/01/20 12/28/20 12/27/20 History omeprazole 20 mg PO BID 04/01/20 12/28/20 12/28/20 History tamsulosin 0.4 mg PO QAM 04/01/20 12/28/20 12/28/20 History warfarin [Jantoven] 5 mg PO BEDTIME 04/01/20 12/28/20 12/27/20 History Physical Exam Vital Signs and Narrative: Vital Signs: Last Vital Signs Temp 97.6 F 12/28/20 14:51 Pulse 77 12/29/20 04:43 Resp 16 12/29/20 04:43 BP 113/47 L 12/29/20 04:43 Pulse Ox 98 12/29/20 04:43 Body Mass Index 17.7 Const: General: cooperative and no acute distress Orientation/consciousness: patient oriented x3 Eyes: General: appearance normal, both eyes and all related structures Pupils: Equal, round and reactive pupils present Resp: Other: No rales or rhonchi Effort & Inspection: normal respiratory effort and able to speak in complete sentences Auscultation: clear to auscultation bilaterally Cardio: Rate: regular rate Rhythm: regular rhythm GI: Palpation (GI): Soft to palpation Auscultation: normal bowel sounds Skin: General skin exam: no rashes or lesions noted Neuro: General: patient oriented x3 Cranial nerves: Yes Equal, round and reactive pupils present Cognition (Neuro): normal cognition Extrem: General: Yes normal to inspection and Yes no pedal edema Results Labs CBC and Chem 7: 12/28/20 17:12 12/28/20 17:12 Labs: Laboratory Results - last 24 hr 12/28/20 12/28/20 12/28/20 17:12 17:12 17:12 MCV 99.7 H MCH 32.1 MCHC 32.2 RDW 15.5 Plt Count 115 L D MPV 10.5 Immature Gran % (Auto) 0.5 H Neut % (Auto) 76.9 H Lymph % (Auto) 11.2 L [place] % (Auto) 10.9 Eos % (Auto) 0.5 Baso % (Auto) 0.0 Lymph # (Auto) 0.4 L [place] # (Auto) 0.4 Eos # (Auto) 0.0 Baso # (Auto) 0.0 Abs Immat Gran (auto) 0.02 Absolute Neuts (auto) 2.8 Absolute Nucleated RBC 0.000 Nucleated RBC % (auto) 0.0 PT 34.3 H INR 2.9 H APTT 31.2 Anion Gap 16 Estim Creat Clear Calc 30.1 Estimated GFR 43 Random Glucose 137 H Calcium 8.1 L Total Bilirubin 1.1 H Direct Bilirubin 0.5 AST 20 D ALT 9 Alkaline Phosphatase 87 Troponin I High Sens B-Natriuretic Peptide Total Protein 5.8 L D Albumin 3.3 L COVID-19 (YOBANI) COVID-[employer] 12/28/20 12/29/20 17:12 01:06 MCV MCH MCHC RDW Plt Count MPV Immature Gran % (Auto) Neut % (Auto) Lymph % (Auto) [place] % (Auto) Eos % (Auto) Baso % (Auto) Lymph # (Auto) [place] # (Auto) Eos # (Auto) Baso # (Auto) Abs Immat Gran (auto) Absolute Neuts (auto) Absolute Nucleated RBC Nucleated RBC % (auto) PT INR APTT Anion Gap Estim Creat Clear Calc Estimated GFR Random Glucose Calcium Total Bilirubin Direct Bilirubin AST ALT Alkaline Phosphatase Troponin I High Sens 7.1 B-Natriuretic Peptide 201 H Total Protein Albumin COVID-19 (YOBANI) Negative [facility]-[employer] See Note Imaging Radiologist's Impressions: Impressions Chest X-Ray 12/28/20 15:05 IMPRESSION: Hyperinflated lungs without acute process. Assessment and Plan (1) COPD exacerbation: Status: Acute (2) Dyspnea: Status: Acute (3) TRIP (acute kidney injury): Status: Acute This is an 85-year-old male with past medical history of COPD, CHF status post AICD, AFib who presents to the hospital with complaints of shortness of breath # COPD exacerbation - has dyspnea, wheezing on exertion, cough, sputum production - chest x-ray negative for any pneumonia, no evidence of volume overload - will start him on Solu-Medrol, DuoNeb p.r.n. and scheduled - currently not hypoxic - monitor respiratory status # shortness of breath - most likely secondary to COPD exacerbation - no evidence of pneumonia, PE less likely as patient has therapeutic INR, no evidence of CHF exacerbation clinically or on imaging - treatment of COPD exacerbation as above # TRIP - most likely secondary to recent Lasix as patient was placed on Lasix for 1 week due to elevated BNP and possible CHF exacerbation causing his dyspnea - will start him on IV fluids - follow BMP # history of CHF - status post AICD - last echo on file from 2014 shows an ejection fraction of 45-50% - patient reports that he follows with his outboard system operator outpatient - continue metoprolol, Entresto, # AFib on Coumadin - continue metoprolol, digoxin, - continue Coumadin - PT INR daily # HTN - blood pressure was on the low and on arrival but has now stabilized - will continue home medications DVT prophylaxis: Coumadin Quality Stroke Does the patient have a stroke diagnosis?: No VTE Prior VTE?: No VTE Risk Level:: Medical - moderate - high VTE Device Contraindication: Treatment Not Indicated VTE Drug Contraindication: N/A - Med Ordered
[2020-12-29 07:05] LABS: Hematocrit 30.3 % (42-52); Hemoglobin 9.8 g/dl (14.0-18.0); Imm Gran Abs Auto 0.02 X10*3/uL (0.00-0.03); Imm Gran Pct Auto 0.9 % (0.0-0.4); Lymphocytes Absolute Auto 0.3 X10*3/uL (1.2-4.9); Lymphocytes Percent Auto 13.6 % (20-40); MANUAL DIFF FLAG SCAN; Mean Corpuscular HGB Conc 32.3 g/dl (31.0-36.0); Mean Corpuscular Hemoglobin 31.9 pg (27.0-33.0); Mean Corpuscular Volume 98.7 fL (80-98); Mean Platelet Volume 10.1 fL (9.4-12.4); Monocytes Absolute Auto 0.1 X10*3/uL (0.1-1.2); Monocytes Percent Auto 4.2 % (2-11); Neutrophils Absolute Auto 1.7 X10*3/uL (2.0-8.3); Neutrophils Percent Auto 81.3 % (45-73); Platelet Count 119 X10*3/uL (160-400); Red Blood Count 3.07 X10*6/uL (4.60-5.80); Red Cell Distribution Width 15.1 % (11.0-16.0); SCAN SMEAR FLAG 1
[2020-12-29 07:14] LABS: INTERNATIONAL NORM RATIO 3.3 (0.9-1.1); Prothrombin Time 38.8 SEC (9.9-13.0)
[2020-12-29 07:22] LABS: White Blood Count 2.1 X10*3/uL (4.8-10.8)
[2020-12-29 07:33] LABS: Anion Gap 12 (12-20); Blood Urea Nitrogen 38 mg/dL (9-16); Calcium 7.7 mg/dL (8.4-10.2); Carbon Dioxide 23 mmol/L (22-29); Chloride 111 mmol/L (96-108); Creatinine Clr Calc Pharmacy 38.2; Estimated Glomerular Filt Rate 56; Glucose Random 169 mg/dL (60-115); Potassium 3.7 mmol/L (3.3-5.1); Sodium 142 mmol/L (135-145)
[2020-12-29 08:09] LABS: SLIDE REVIEW VERIFIED
[2020-12-29] MEDS: Albuterol/Iprat 2.5/0.5MG 3 ML AMPUL.NEB INHALE ×4 (08:25→20:09)
[2020-12-29] MEDS: Lactated Ringers 1,000 ML 100 ML IVCONT (09:50)
[2020-12-29] MEDS: Potassium Chloride ER 20 MEQ TAB.ER.PRT PO (09:56)
[2020-12-29] MEDS: Digoxin 0.125 MG TABLET PO (09:56)
[2020-12-29] MEDS: Tamsulosin HCL 0.4 MG CAPSULE PO (09:57)
[2020-12-29] MEDS: Omeprazole 20 MG CAPSULE.DR PO ×2 (09:57→20:27)
[2020-12-29] MEDS: Heparin Sodium,Porcine 5,000 UNIT/ML VIAL 5000 UNIT SUBCUT ×2 (09:58→20:26)
[2020-12-29] MEDS: methylPREDNISolone Sod Succ 40 MG/ML VIAL IVPUSH ×2 (09:58→20:25)
[2020-12-29] MEDS: Finasteride 5 MG TABLET PO (10:00)
[2020-12-29] MEDS: Sacubitril/Valsartan 24/26 1 TAB TABLET PO ×2 (10:00→20:26)
--- NOTE | 2020-12-29 10:52 | MHC.CM.PN ---
Met with patient in regards to discharge planning. Patient lives with his and daughter, ambulates independently and had no services prior to coming to the hospital. No services anticiapted to be needed because patient is not homebound. PCP verified as Wesly Do at [facility]. IMM explained and signed. Patient does not have a HCP. He has the forms at home and plans to complete them and provide them to his PCP at [facility]. Patient is not interested in completing one at this time. Patient's family will transport him home when medically stable. Patient received 2 Pfizer vaccines. Continue to monitor for d/c needs.
--- NOTE | 2020-12-29 12:07 | P.PNIM_ITS ---
Subjective Subjective Date of Service: 12/29/20 Interval History: Seen in f/u for copd exacerbation, he feels better Review of Systems Gen: no fever Resp: no sob, no cough CV: no chest, no ARENAS, no leg edema GI: No n/v, no abd pain Neuro: No confusion Physical Exam Vital Signs: Vital Signs: Last Vital Signs Temp 97.6 F 12/28/20 14:51 Pulse 77 12/29/20 10:54 Resp 16 12/29/20 04:43 BP 113/47 L 12/29/20 04:43 Pulse Ox 98 12/29/20 04:43 Body Mass Index 17.7 Const: Other: General: AO X 3, no acute distress Resp: mild wheeze, good air movement CVS: S1,S2,RRR GI: +BS, NT, no distention Skin: No rash Neuro: motor grossly intact Psych: appropriate affect Objective Data Current Medications Generic Name Dose Route Start Last Admin Trade Name Freq PRN Reason Stop Dose Admin Acetaminophen 650 mg 12/28/20 21:30 Acetaminophen 325 Mg Tablet PO Q6H PRN Pain, Mild (Pain Scale 1-3) Albuterol/Ipratropium 3 ml 12/29/20 08:00 12/29/20 10:54 Albuterol/Iprat 2.5/0.5mg 3 Ml Ampul.Neb INHALE 3 ml RQ4H WHILE AWAKE ANDREZ Administration Albuterol/Ipratropium 3 ml 12/28/20 21:30 Albuterol/Iprat 2.5/0.5mg 3 Ml Ampul.Neb INHALE RQ4H PRN Shortness of Breath/Wheezing Digoxin 0.125 mg 12/29/20 09:00 12/29/20 09:56 Digoxin 0.125 Mg Tablet PO 0.125 mg DAILY ANDREZ Administration Docusate Sodium 100 mg 12/28/20 21:30 Docusate Sodium 100 Mg Capsule PO DAILY PRN Constipation Finasteride 5 mg 12/29/20 09:00 12/29/20 10:00 Finasteride 5 Mg Tablet PO 5 mg DAILY ANDREZ Administration Heparin Sodium (Porcine) 5,000 unit 12/28/20 21:30 12/29/20 09:58 Heparin Sodium,Porcine 5,000 Unit/Ml Vial SUBCUT 5,000 unit Q12H ANDREZ Administration Methylprednisolone Sodium Succinate 40 mg 12/28/20 21:30 12/29/20 09:58 Methylprednisolone Sod Succ 40 Mg/Ml Vial IVPUSH 40 mg Q12H ANDREZ Administration Metoprolol Succinate 200 mg 12/29/20 21:00 Metoprolol Succinate Er 100 Mg Tab.Er.24h PO BEDTIME [facility] Protocol Omeprazole 20 mg 12/29/20 09:00 12/29/20 09:57 Omeprazole 20 Mg Capsule.Dr PO 20 mg BID [facility] Administration Pharmacy Consult 1 each 12/28/20 21:16 Consult Rx Perform Med Rec MISCELLANE ONCE PRN Consult order Potassium Chloride 20 meq 12/29/20 09:00 12/29/20 09:56 Potassium Chloride Er 20 Meq Tab.Er.Prt PO 20 meq DAILY [facility] Administration Sacubitril/Valsartan 1 tab 12/29/20 09:00 12/29/20 10:00 Sacubitril/Valsartan 1 Tab Tablet PO 1 tab BID [facility] Administration Protocol Sodium Chloride 3 ml 12/29/20 00:00 12/29/20 09:59 0.9 % Sodium Chloride Flush 3 Ml Syringe IVFLUSH 3 ml QSHIFT [facility] Administration Tamsulosin HCl 0.4 mg 12/29/20 09:00 12/29/20 09:57 Tamsulosin Hcl 0.4 Mg Capsule PO 0.4 mg DAILY [facility] Administration Warfarin Sodium 5 mg 12/29/20 18:00 Warfarin Sodium 5 Mg Tablet PO DAILY@1800 [facility] Labs CBC & Chem 7: 12/29/20 06:26 12/29/20 06:26 Labs: Laboratory Results - last 24 hr 12/28/20 12/28/20 12/28/20 17:12 17:12 17:12 WBC 3.7 L RBC 3.21 L Hgb 10.3 L Hct 32.0 L MCV 99.7 H MCH 32.1 MCHC 32.2 RDW 15.5 Plt Count 115 L D MPV 10.5 Immature Gran % (Auto) 0.5 H Neut % (Auto) 76.9 H Lymph % (Auto) 11.2 L [place] % (Auto) 10.9 Eos % (Auto) 0.5 Baso % (Auto) 0.0 Lymph # (Auto) 0.4 L [place] # (Auto) 0.4 Eos # (Auto) 0.0 Baso # (Auto) 0.0 Abs Immat Gran (auto) 0.02 Absolute Neuts (auto) 2.8 Absolute Nucleated RBC 0.000 Nucleated RBC % (auto) 0.0 Smear Tech's Comments PT 34.3 H INR 2.9 H APTT 31.2 Sodium 141 Potassium 3.7 Chloride 108 Carbon Dioxide 21 L Anion Gap 16 BUN 43 H D Creatinine 1.56 H Estim Creat Clear Calc 30.1 Estimated GFR 43 Random Glucose 137 H Calcium 8.1 L Total Bilirubin 1.1 H Direct Bilirubin 0.5 AST 20 D ALT 9 Alkaline Phosphatase 87 Troponin I High Sens B-Natriuretic Peptide Total Protein 5.8 L D Albumin 3.3 L COVID-19 ([facility]) COVID-19 Clin Com 12/28/20 12/29/20 12/29/20 17:12 01:06 06:26 WBC 2.1 L RBC 3.07 L Hgb 9.8 L Hct 30.3 L MCV 98.7 H MCH 31.9 MCHC 32.3 RDW 15.1 Plt Count 119 L MPV 10.1 Immature Gran % (Auto) 0.9 H Neut % (Auto) 81.3 H Lymph % (Auto) 13.6 L [place] % (Auto) 4.2 Eos % (Auto) 0.0 Baso % (Auto) 0.0 Lymph # (Auto) 0.3 L [place] # (Auto) 0.1 Eos # (Auto) 0.0 Baso # (Auto) 0.0 Abs Immat Gran (auto) 0.02 Absolute Neuts (auto) 1.7 L Absolute Nucleated RBC 0.000 Nucleated RBC % (auto) 0.0 Smear Tech's Comments VERIFIED PT INR APTT Sodium Potassium Chloride Carbon Dioxide Anion Gap BUN Creatinine Estim Creat Clear Calc Estimated GFR Random Glucose Calcium Total Bilirubin Direct Bilirubin AST ALT Alkaline Phosphatase Troponin I High Sens 7.1 B-Natriuretic Peptide 201 H Total Protein Albumin COVID-19 ([facility]) Negative COVID-19 Clin Com See Note 12/29/20 12/29/20 06:26 06:26 WBC RBC Hgb Hct MCV MCH MCHC RDW Plt Count MPV Immature Gran % (Auto) Neut % (Auto) Lymph % (Auto) [place] % (Auto) Eos % (Auto) Baso % (Auto) Lymph # (Auto) [place] # (Auto) Eos # (Auto) Baso # (Auto) Abs Immat Gran (auto) Absolute Neuts (auto) Absolute Nucleated RBC Nucleated RBC % (auto) Smear Tech's Comments PT 38.8 H INR 3.3 H APTT Sodium 142 Potassium 3.7 Chloride 111 H Carbon Dioxide 23 Anion Gap 12 BUN 38 H Creatinine 1.23 Estim Creat Clear Calc 38.2 Estimated GFR 56 Random Glucose 169 H Calcium 7.7 L Total Bilirubin Direct Bilirubin AST ALT Alkaline Phosphatase Troponin I High Sens B-Natriuretic Peptide Total Protein Albumin COVID-19 ([facility]) COVID-19 Clin Com Quality Stroke Does the patient have a stroke diagnosis?: No VTE Prior VTE?: No VTE Risk Level:: Medical - moderate - high VTE Device Contraindication: Treatment Not Indicated VTE Drug Contraindication: N/A - Med Ordered Assessment and Plan (1) COPD exacerbation: Status: Acute (2) Dyspnea: Status: Acute (3) TRIP (acute kidney injury): Status: Acute Assessment and Plan: This is an 85-year-old male with past medical history of COPD, CHF status post AICD, AFib who presents to the hospital with complaints of shortness of breath # COPD exacerbation--improving, -continue bronchodilators, steroid, oxygen as needed # shortness of breath - most likely secondary to COPD exacerbation - no evidence of pneumonia, PE less likely as patient has therapeutic INR, no evidence of CHF exacerbation clinically or on imaging - treatment of COPD exacerbation as above # TRIP--resolved with IVF, # history of CHF--presently euvolemic - status post AICD - last echo on file from 2014 shows an ejection fraction of 45-50% - patient reports that 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
--- NOTE | 2020-12-29 13:07 | PC.NURSE ---
PATY ATTEMPTED TO CALL REPORT X 2 WITH NO ANSWER
[2020-12-29] MEDS: Magnesium Hydrox/Alum Hydrox 30 ML ORAL.SUSP 15 ML PO (20:24)
[2020-12-29] MEDS: Metoprolol Succinate ER 50 MG TAB.ER.24H 200 MG PO (21:20)
--- NOTE | 2020-12-29 23:46 | PC.NURSE ---
P pressure ulcer present right buttock,chronic I obtained consent for photograph,unable to take picture with camera ,camera is not working,picture of wound was taken via [employer] connect camera and forwarded to Dr. Kwok,area cleansed,foam drsg applied,patricia cream to bilateral buttocks,wound nurse notified via e-mail E repositioned patient,will monitor
[2020-12-30] VITALS (7 sets, daily range): BP systolic 109–115; BP diastolic 44–55; PULSE 43–87; RESP 16–18; TEMP 36.4–36.9; O2SAT 95–100
--- NOTE | 2020-12-30 | ECG_ITS ---
Test Reason : BRADYCARDIA Blood Pressure : / mmHG Vent. Rate : 078 BPM Atrial Rate : 057 BPM P-R Int : 000 ms QRS Dur : 126 ms QT Int : 442 ms P-R-T Axes : 000 166 009 degrees QTc Int : 503 ms Ventricular-paced rhythm with frequent Premature ventricular complexes Abnormal ECG When compared to the previous EKG of No significant changes seen Referred By: Abelardo Auguste Electronically Signed By:Good Buitrago
[2020-12-30] MEDS: 0.9 % Sodium Chloride Flush 3 ML SYRINGE IVFLUSH ×3 (00:37→15:28)
[2020-12-30] MEDS: Albuterol/Iprat 2.5/0.5MG 3 ML AMPUL.NEB INHALE ×3 (08:19→16:14)
[2020-12-30 08:45] LABS: INTERNATIONAL NORM RATIO 3.7 (0.9-1.1)
--- NOTE | 2020-12-30 09:11 | PM.DS ---
DS: Providers Provider Date of Service: 12/30/20 Date of admission: 12/28/20 21:31 Primary care physician: TUSHAR Oquendo DS: Diagnosis Discharge Diagnosis (1) COPD exacerbation: Status: Acute (2) Dyspnea: Status: Acute (3) TRIP (acute kidney injury): Status: Acute DS: Medications Discharge Medications Home Medications: Home Medications Medication Instructions Recorded Confirmed Anoro Ellipta 1 puff PO DAILY 04/01/20 12/28/20 Entresto 1 tab PO BID 04/01/20 12/28/20 digoxin 125 mcg PO DAILY 04/01/20 12/28/20 ipratropium-albuterol 3 ml INHALATION QID PRN 04/01/20 12/28/20 metoprolol succinate 200 mg PO BEDTIME 04/01/20 12/28/20 omeprazole 20 mg PO BID 04/01/20 12/28/20 tamsulosin 0.4 mg PO QAM 04/01/20 12/28/20 warfarin [Jantoven] 5 mg PO BEDTIME 04/01/20 12/28/20 Previous Rx's Medication Instructions Recorded finasteride 5 mg tablet 5 mg PO DAILY 90 Days #90 tab 05/27/20 furosemide [Lasix] 20 mg PO DAILY #7 tab 11/24/20 potassium chloride 20 meq PO DAILY #7 tab 11/24/20 DS: Summary Hospital Course Hospital Course: Chief Complaint: Shortness of breath This is an 85-year-old male with past medical history of COPD, CHF status post AICD, AFib on Coumadin, diabetes, history of esophageal cancer status post esophagectomy currently in remission, HTN, sick sinus syndrome, who presents to the hospital with complaints of shortness of breath. 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 He tried using his nebulizer with no relief. Denies any lower extremity edema, no orthopnea no PND. No fever or chills, no recent travel or sick contacts, no urinary symptoms, no abdominal pain nausea or vomiting, no diarrhea or constipation. Patient also says that he is active and has no sedentary lifestyle. On arrival to the ED patient hemodynamically stable with no significant abnormal vitals Labs are significant for WBC count of 3.7, hemoglobin of 10.3 which is around his baseline, PT of 34.4, INR of 2.9, BUN of 43, creatinine of 1.56 with a baseline around 0.98, total bili of 1.1, BNP of 201, of the ministry 0.3 chest x-ray shows hyperinflated lungs without acute process acute process Patient was admitted for further management of COPD exacerbation and TRIP Hospital course by problems: 1. COPD exacerbation this was manged with bronchodilators by Nebulizer and IV steroid and he is overall feeling better, presently without shortness of breath, no wheezes, no hypoxia and he desires to go home. 2. TRIP on possible CKD Creatinine was 1.5 on admission and is down to 1.2 after IVF and is encuraged to drink enough water but not to overdue it due to heart failure history. 3. Low pulse rate--incorrect recordings, most pulse have been withing normal range. Time Spent with Patient Time attestation: Total time spent providing and/or coordinating discharge services: Discharge coordination time: Greater than 30 minutes Quality: Stroke Does the patient have a stroke diagnosis?: No Physical Exam Vital Signs: Vital Signs: Last Vital Signs Temp 98.1 F 12/30/20 07:30 Pulse 43 L 12/30/20 08:21 Resp 17 12/30/20 07:30 BP 113/44 L 12/30/20 07:30 Pulse Ox 98 12/30/20 07:30 Body Mass Index 17.7 DS: Data Data Completed and Pending Labs on day of discharge: Laboratory Results - last 24 hr 12/29/20 12/30/20 06:26 08:27 Smear Path Review SEE NOTE PT 43.0 H INR 3.7 H Discharge Plan Discharge Anticipated Discharge Date/Time: 12/30/20 09:06 Patient Disposition: Home, Self-Care Discharge Diagnosis: COPD exacerbation, TRIP Referrals: Karan Do PA [Primary Care Provider] - 1 Week Discharge Medications: New prednisone 20 mg tablet 20 mg PO DAILY Qty: 4 RF: 0 Continued omeprazole 20 mg capsule,delayed release(DR/EC) 20 mg PO BID RF: 0 Anoro Ellipta 62.5-25 mcg/actuation blister with device 1 puff PO DAILY RF: 0 Entresto 24-26 mg tablet 1 tab PO BID RF: 0 ipratropium-albuterol 0.5 mg-3 mg(2.5 mg base)/3 mL Solution For Nebulization 3 ml INHALATION QID PRN (Reason: Shortness Of Breath) RF: 0 metoprolol succinate 200 mg Tablet Extended Release 24 Hr 200 mg PO BEDTIME RF: 0 tamsulosin 0.4 mg Capsule 0.4 mg PO QAM RF: 0 warfarin [Jantoven] 5 mg Tablet 5 mg PO BEDTIME RF: 0 digoxin 125 mcg (0.125 mg) Tablet 125 mcg PO DAILY RF: 0 furosemide [Lasix] 20 mg tablet 20 mg PO DAILY Qty: 7 RF: 0 potassium chloride 20 mEq tablet extended release 20 meq PO DAILY Qty: 7 RF: 0 finasteride 5 mg tablet 5 mg PO DAILY 90 Days Qty: 90 RF: 1 Discharge Orders: Discharge Order (Routine); Ordered 12/30/20 Ordered By: Abelardo Auguste Diet: advance to usual diet Activity on Discharge: As tolerated Stand Alone Forms: Patient Portal Discharge page Care Plan Goals: Prevent reshospitalization from COPD Health Concerns: Chronic COPD, heart failure Plan of Treatment: Take all your medication as directed and follow up with your Doctor in a week, call for appointment, Take Prednisone for COPD Assessment: As above Discharge Date/Time: 12/30/20 18:28
[2020-12-30] MEDS: Potassium Chloride ER 20 MEQ TAB.ER.PRT PO (09:14)
[2020-12-30] MEDS: Sacubitril/Valsartan 24/26 1 TAB TABLET PO (09:14)
[2020-12-30] MEDS: Omeprazole 20 MG CAPSULE.DR PO (09:15)
[2020-12-30] MEDS: Digoxin 0.125 MG TABLET PO (09:15)
[2020-12-30] MEDS: Tamsulosin HCL 0.4 MG CAPSULE PO (09:16)
[2020-12-30] MEDS: Finasteride 5 MG TABLET PO (09:16)
[2020-12-30] MEDS: Heparin Sodium,Porcine 5,000 UNIT/ML VIAL 5000 UNIT SUBCUT (09:19)
[2020-12-30] MEDS: methylPREDNISolone Sod Succ 40 MG/ML VIAL IVPUSH (09:19)
--- NOTE | 2020-12-30 09:35 | MHC.CM.PN ---
Addendum entered by Roz Calvo 12/30/20 11:22: HOSPITALIST ASKED FOR PHYSICAL THEAPRY EVALUATION PATIENT WAS SEEN AND NO HOME PHYSICAL THEAPRY WAS RECOMENDED , SPOKE WITH NPATIENT AND TELEPHONE CA;; TO PATIENTS SHELLIE [phone] AND INOFRMED HER THAT A PT EVAL WAS DONE AND PATIENT WIOULD BE GOING HOME PLANNED WITH NO SERVICES NEEDED AND IF SHE HAD ANY CONCERNS OVER THE NEXT 2-3 DAYS TO CALL PCP FOR [facility] Original Note: NURSE WOOD SETTER NOTE ELECTRONIC MEDICAL RECORD REVIEWED ALONG WITH CASE DISCUSSED WITH STAFF NURSE PATIENT IS AWARE OF DISCHARGE TODAY DISCHARGE PLAN HOME NO SERVICES PCP AT [facility] TO CALL FOR POST HOSPITAL DISCHARGE FOLLOW UP TRANSPORTATION FAMILY
== END 2020-12-30 18:28 | disposition home or self-care (01) | DRG 191 ==
LOC: HO.ED 20:59 → HO.EDOVER 12-29 01:46 → HO.S3 12-29 12:15
PROVIDERS: Admitting Provider Internal Medicine; Emergency Provider Internal Medicine; PCP Physician Assistant Medical; Visit Provider Internal Medicine
DX: J44.1 Chronic obstructive pulmonary disease with (acute) exacerbation (principal); N17.9 Acute kidney failure, unspecified; I50.42 Chronic combined systolic (congestive) and diastolic (congestive) heart failure; I11.0 Hypertensive heart disease with heart failure; I48.91 Unspecified atrial fibrillation; Z20.822 Contact with and (suspected) exposure to COVID-19; Z95.0 Presence of cardiac pacemaker; Z79.01 Long term (current) use of anticoagulants; Z79.899 Other long term (current) drug therapy
CPT/HCPCS: 36415; 71046; 80048; 80076; 83880; 84484; 85025; 85610; 85730; 87635; 93005; 94640; 97162; 99285; J2920

== ENCOUNTER 2021-02-08 09:39 | Outpatient (RCR) | payer OTHER, MEDICARE, SELFPAY | END 2021-02-11 10:40 | disposition home or self-care (01) | LOC: HO.WCC 09:39 | PROVIDERS: PCP Physician Assistant Medical; Visit Provider Physician Assistant | DX: E11.9 Type 2 diabetes mellitus without complications (principal); R23.8 Other skin changes; E44.1 Mild protein-calorie malnutrition; J84.10 Pulmonary fibrosis, unspecified; Z85.01 Personal history of malignant neoplasm of esophagus; Z85.89 Personal history of malignant neoplasm of other organs and systems; L53.9 Erythematous condition, unspecified | CPT/HCPCS: 99213 ==